=== PATIENT | male | born 1955 | race Caucasian/White ===

== ENCOUNTER 2016-10-28 07:14 | Outpatient (CLI) | payer MEDICARE ==
[~2016-10-28] VITALS: Ht 180.3 cm; Wt 76.4 kg
--- NOTE | ~2016-10-28 | HEMODYNAMI ---
PATIENT:ALISA HOPSON MEDICAL RECORD: [id number] : 55 LOCATION:[facility] ADMISSION DATE: 10/28/16 Generatedon:10/28/20169:50 Patient name: ALISA HOPSON Patient #: [id number] SSN: DO B: 1955 Date of study: 10/28/2016 Page: Of Hemodynamic Procedure Report Patient Data Patient Demographics Procedure consent was obtained First Name: ALISA Gender: Male Last Name: MARK ANTHONY : 1955 [facility] Initial: ZULY Age: 61 year(s) Patient #: [id number] Race: Unknown Additional ID: [id number] Contact details [address]: [address] [place] [address] rd State: [place] City: [place] Zip code: [address] Admission Admission Data Admission Date: 10/28/2016 Admission Time: 7:14 Procedure Procedure Types Cath Procedure Peripheral Cath Diagnostic Procedure Miscellaneous Procedure Description Procedure Date Procedure Date: 10/28/2016 Procedure Start Time: 8:24 Procedure Staff Name Function Herman Alexandre MD Performing Physician Elsy Coughlin RT Scrub Alisson Najera RN Nurse Felix Benton RT Monitor Procedure Data Cath Procedure Fluoroscopy Diagnostic fluoroscopy Total fluoroscopy Time: time: 19.6 min 19.6 min Diagnostic fluoroscopy Total fluoroscopy dose: dose: 420.04 mGy 420.04 mGy Contrast Material Contrast Material Type Amount (ml) Isovue 300 63 Entry Location Entry Primary Successful Side Size Upsize Upsize Entry Closure Succes sful Closure Location (Fr) 1 (Fr) 2 (Fr) Remarks Device Remarks Femoral Right 5 Fr 6 Fr Mynx artery Long Fire Protection Inspector 6Fr/7Fr Diagnostic catheters Device Type Used For End Catheter Placement Pesotum Sci 5Fr IMT Lower extremity Catheter arteriography Procedure Medications Medication Administration Route Dosage Versed I.V. 1 mg Fentanyl I.V. 50 mcg Versed I.V. 1 mg Fentanyl I.V. 50 mcg Versed I.V. 0.5 mg Fentanyl I.V. 25 mcg Oxygen NC 3 l/min Heparin Flush Bag added to field 3 bags (1000units/500ml NS) Lidocaine 1% added to field 20 Versed I.V. 0.5 mg Fentanyl I.V. 25 mcg Heparin Bolus I.V. 1000 units Nitroglycerin IC/IA I.A. 250 mcg Heparin Bolus I.V. 4000 units Versed I.V. 1 mg Fentanyl I.V. 50 mcg Versed I.V. 0.5 mg Fentanyl I.V. 25 mcg Hemodynamics Rest Heart Rate: 76 (bpm) Snapshots Pre Cath Intra NCS Post Cath Vital Signs Time Heart Resp SPO2 NIBP (mmHg) Rhythm Pain Sedation Rate (ipm) (%) Status Level (bpm) 8:09:12 77 16 99 165/85(126) NSR 0 (11) 10(A) , No pain 8:13:30 63 18 100 139/81(118) NSR 0 (11) 10(A) , No pain 8:17:38 72 16 100 138/86(110) NSR 0 (11) 10(A) , No pain 8:21:48 66 17 95 120/80(97) NSR 0 (11) 10(A) , No pain 8:25:53 68 14 97 121/73(96) NSR 0 (11) 10(A) , No pain 8:30:01 69 13 97 114/67(92) NSR 0 (11) 10(A) , No pain 8:34:05 66 11 97 111/68(89) NSR 0 (11) 10(A) , No pain 8:38:09 67 13 97 111/70(93) NSR 0 (11) 9(A) , No pain 8:42:10 69 13 97 116/72(95) NSR 0 (11) 9(A) , No pain 8:46:14 68 12 96 108/71(87) NSR 0 (11) 9(A) , No pain 8:50:16 70 13 96 110/68(83) NSR 0 (11) 9(A) , No pain 8:54:20 70 12 96 107/68(83) NSR 0 (11) 9(A) , No pain 8:58:21 68 13 96 115/71(86) NSR 0 (11) 9(A) , No pain 9:02:25 68 13 96 113/73(93) NSR 0 (11) 9(A) , No pain 9:06:29 68 14 96 113/72(88) NSR 0 (11) 9(A) , No pain 9:10:32 70 15 96 110/68(80) NSR 0 (11) 9(A) , No pain 9:14:36 70 14 95 105/67(88) NSR 0 (11) 9(A) , No pain 9:18:38 72 16 95 103/68(79) NSR 0 (11) 9(A) , No pain 9:22:39 69 14 96 106/65(82) NSR 0 (11) 9(A) , No pain 9:26:39 67 16 98 121/75(96) NSR 6 (11) 10(A) , Intense 9:30:45 68 12 97 129/75(103) NSR 0 (11) 9(A) , No pain 9:34:53 67 13 98 124/74(98) NSR 0 (11) 9(A) , No pain 9:38:59 68 12 98 123/75(98) NSR 0 (11) 9(A) , No pain 9:43:05 69 14 98 123/78(94) NSR 0 (11) 10(A) , No pain 9:47:10 69 14 98 122/76(94) NSR 0 (11) 10(A) , No pain Medications Time Medication Route Dose Verified Delivered Reason Notes Effectiveness by by 7:59:08 Heparin Flush added 3 bags Alisson Alisson used for Bag to King ALLYSON Najera RN procedure (1000units/500ml field NS) 7:59:17 Lidocaine 1% added 20ml Alisson Alisson for local to vial King ALLYSON Najera RN anesthetic field 7:59:53 Oxygen NC 3 Alisson Alisson Per protocol l/min King ALLYSON Najera RN 8:23:45 Versed I.V. 1 mg Alisson Alisson for sedation King ALLYSON Najera RN 8:23:55 Fentanyl I.V. 50 mcg Alisson Alisson for sedation King ALLYSON Najera RN 8:28:19 Versed I.V. 1 mg Alisson Alisson for sedation King ALLYSON Najera RN 8:28:26 Fentanyl I.V. 50 mcg Alisson Alisson for sedation King ALLYSON Najera RN 8:35:12 Versed I.V. 0.5 mg Alisson Alisson for sedation King ALLYSON Najera RN 8:35:20 Fentanyl I.V. 25 mcg Alisson Alisson for sedation King ALLYSON Najera RN 8:42:11 Versed I.V. 0.5 mg Alisson Alisson for sedation King ALLYSON Najera RN 8:42:16 Fentanyl I.V. 25 mcg Alisson Alisson for sedation King ALLYSON Najera RN 8:42:20 Heparin Bolus I.V. 4000 Alisson Alisson for units King ALLYSON Najera RN anticoagulation 9:05:32 Versed I.V. 0.5 mg Alisson Alisson for sedation King ALLYSON Najera RN 9:05:43 Fentanyl I.V. 25 mcg Alisson Alisson for sedation King ALLYSON Najera RN 9:08:43 Heparin Bolus I.V. 1000 Alisson Alisson for units King ALLYSON Najera RN anticoagulation 9:09:29 Nitroglycerin I.A. 250mcg Herman Sutton for IC/IA Bettie hernandez MD, MD 9:27:22 Versed I.V. 1 mg Alisson Alisson for sedation King ALLYSON Najera RN 9:27:29 Fentanyl I.V. 50 mcg Alisson Alisson for sedation King ALLYSON Najera RN Procedure Log Time Note 7:49:28 Felix Benton RT (R) (CV) sent for patient. Start room use. 7:49:29 Time tracking: Regular hours 7:49:35 Plan of Care:Hemodynamics will remain stable., Cardiac rhythm will remain stable., Comfort level will be maintained., Respiratory function will remain adequate., Patient/ family verbilizes understanding of procedure., Procedure tolerated without complication., Recovers from procedure without complications.. 7:49:40 Patient received from Outpatients to IR Alert and oriented. Tansferred to table in Supine position. 7:49:52 Warm blankets applied, and dom hugger turned on for patient comfort. 7:49:54 Correct patient and procedure confirmed by team. 7:49:57 Signed procedure consent form obtained from patient. 7:50:02 ECG and BP/O2 sat monitors applied to patient. 7:56:15 Full Disclosure recording started 7:56:15 7:56:20 H&P Date Dictated: 10/28/2016 H&P Addendum completed by physician on day of procedure. (MUST COMPLETE FOR ALL OUTPATIENTS). 7:56:21 Pre-procedure instructions explained to patient. 7:56:22 Pre-op teaching completed and patient verbalized understanding. 7:56:23 Family in waiting room. 7:56:28 Patient NPO since Midnight. 7:56:33 Is the patient allergic to Iodine/contrast media? No. 7:56:34 Is patient on blood thinner?No 7:56:38 7:56:50 Patient diabetic? No. 7:56:52 ----Pre-sedation anethsthesia assessment.---- 7:56:54 Previous problem with sedation/anesthesia? No ? 7:56:55 Snore? Yes 7:56:56 Sleep apnea? No 7:56:58 Deviated septum? No 7:57:15 Opens mouth fully? Yes 7:57:16 Opens mouth fully? Yes 7:57:18 Sticks out tongue? No 7:57:21 Airway obstruction? No ? 7:57:23 Dentures? No ? 7:57:24 7:57:27 Pre procedure: left dorsailis pedis pulse 2+ Normal; easily identifiable; not easily obliterated 7:57:31 Pre procedure: right dorsailis pedis pulse Doppler 7:57:35 Pre procedure: right posterior tibial pulse Doppler 7:57:39 Pre procedure: left posterior tibial pulse Doppler 7:57:47 Patient pain scale 0/10 no pain. 7:57:54 IV patent on arrival in left hand with 0.9% NaCl at [facility]. 7:57:55 Sharps counted by scrub and verified by R.N. 7:57:56 Alarms reviewed by R. N. 7:58:01 Bilateral groins area was prepped with chlora-prep and draped in sterile fashion 7:58:14 Use device set IR Diagnostic 7:58:15 Bag Decanter opened to sterile field. 7:58:16 Sterile Angiographic Pack opened to sterile field. 7:58:17 Acist Manifold opened to sterile field. 7:58:19 Acist Hand Control opened to sterile field. 7:58:19 Acist Syringe opened to sterile field. 7:59:08 Heparin Flush Bag (1000units/500ml NS) 3 bags added to field was given by Alisson Najera RN; used for procedure; 7:59:17 Lidocaine 1% 20ml vial added to field was given by Alisson Najera RN; for local anesthetic; 7:59:53 Oxygen 3 l/min NC was given by Alisson Najera RN; Per protocol; 8:07:59 Vital chart was started 8:10:50 Baseline sample Acquired. 8:10:54 Rhythm: sinus rhythm 8:20:47 Physician arrived 8:20:48 --------ALL STOP TIME OUT------ 8:20:51 Final Timeout: patient, procedure, and site verified with staff and physician. All members of the team are in agreement. 8:20:54 Bilateral groins site verified by team. 8:20:57 Physical assessment completed. ASA score P 2 - A patient with mild systemic disease as per Herman Alexandre MD. 8:21:01 Sedation plan: IV Moderate Sedation Versed, Fentanyl 8:23:45 Versed 1 mg I.V. was given by Alisson Najera RN; for sedation; 8:23:55 Fentanyl 50 mcg I.V. was given by Alisson Najera RN; for sedation; 8:24:34 Procedure started. 8:24:51 Local anesthetic to left femerol artery with Lidocaine 1% by Herman Alexandre MD.INITIAL ACCESS ONLY 8:25:08 A 5 Fr sheath was inserted into the Right Femoral artery 8:25:13 St Gabriel 5FR Sheath opened to sterile field. 8:25:13 Cook BENTSON 145cm guide wire opened to sterile field. 8:25:14 Micropuncture VSI 4FR kit opened to sterile field. 8:28:19 Versed 1 mg I.V. was given by Alisson Najera RN; for sedation; 8:28:26 Fentanyl 50 mcg I.V. was given by Alisson Najera RN; for sedation; 8:33:46 A Pesotum Sci 5Fr IMT Catheter was advanced over the wire and used for Lower extremity arteriography. 8:35:12 Versed 0.5 mg I.V. was given by Alisson Najera RN; for sedation; 8:35:15 [address]ADRUNNER 260 .035 glide wire opened to sterile field. 8:35:20 Fentanyl 25 mcg I.V. was given by Alisson Najera RN; for sedation; 8:38:44 Terumo 5FR COBRA 100CM glide catheter opened to sterile field. 8:41:53 Terumo 6Fr [place] Destination Sheath opened to sterile field. 8:42:06 Sheath upsized to a 6 Fr Long. 8:42:11 Versed 0.5 mg I.V. was given by Alisson Najera RN; for sedation; 8:42:16 Fentanyl 25 mcg I.V. was given by Alisson Najera RN; for sedation; 8:42:20 Heparin Bolus 4000 units I.V. was given by Alisson Najera RN; for anticoagulation; 8:43:07 Cook KENDALL 260 guide wire opened to sterile field. 8:51:17 Encore Inflation Device opened to sterile field. 9:03:19 Terumo ANGLE 260L glide wire opened to sterile field. 9:05:32 Versed 0.5 mg I.V. was given by Alisson Najera RN; for sedation; 9:05:43 Fentanyl 25 mcg I.V. was given by Alisson Najera RN; for sedation; 9:05:43 Pesotum Sci Choice PT Floppy J 300cm 0.014 guide wi opened to sterile field. 9:08:43 Heparin Bolus 1000 units I.V. was given by Alisson Najera RN; for anticoagulation; 9:09:29 Nitroglycerin IC/IA 250mcg I.A. was given by Herman Alexandre MD; for vasodilation; 9:09:33 Turbohawk 1 Large Atherectomy catheter opened to sterile field. 9:23:09 Inflation number: 1 A IN.PACT Admiral 6 x 150 balloon was prepped and advanced across the Mid Superficial Femoral, Right, then inflated to 0 TARAH for 0:00 (min:sec). 9:27:22 Versed 1 mg I.V. was given by Alisson Najera RN; for sedation; 9:27:29 Fentanyl 50 mcg I.V. was given by Alisson Najera RN; for sedation; 9:36:24 St Gabriel 6Fr sheath opened to sterile field. 9:37:25 MYNX CRABBER 6FR/7FR opened to sterile field. 9:37:44 Sheath removed intact; hemostasis achieved with Mynx Fire Protection Inspector 6Fr/7Fr to the Right Femoral artery. 9:37:47 Procedure ended.(Physican Out) 9:38:08 Fluoroscopy time 19.60 minutes. 9:38:28 Fluoroscopy dose: 420.04 mGy 9:38:28 Flurop Dose total: 420.04 9:40:56 Contrast amount:Isovue 300 63ml. 9:40:59 Sharps counted by scrub and verified by R.N. 9:41:02 Insertion/operative site no bleeding no hematoma. 9:41:12 Post-op/insertion site Left Femoral artery dressed using a 4 x 4 and Tegaderm. 9:41:17 Post left femerol artery:stable 9:41:18 Post Procedure Pulses reassessed and unchanged 9:41:23 Post-procedure physical assessment completed. ASA score P 2 - A patient with mild systemic disease as per Herman Alexandre MD. 9:41:25 Post procedure rhythm: unchanged. 9:49:22 Post procedure instruction explained to patient.Patient verbalizes understanding. 9:49:23 Procedure and supply charges have been captured, reviewed, submitted and are correct. 9:49:26 Report given to Outpatients. 9:49:30 Patient transfered to Outpatients with Bed. 9:50:51 Vital chart was stopped Intervention Summary Intervention Notes Time ActionType Lesion and Equipment Action# Pressure Duration Attributes Used 9:23:09 Inflate Mid IN.PACT 1 0 00:00 balloon Superficial Admiral 6 Femoral, x 150 Right balloon Device Usage Item Name Manufacture Quantity Catalog Number Hospital Part Current [facility] Lot# / Charge Number Stock Stock Serial# Code Bag Decanter Microtek 1 [facility] [id number] 74133 837545 5 [employer] Inc. Sterile Cardinal 1 [id number] 219298 027484 5 Angiographic Health Pack Acist Acist 1 07471 679295 772277 149944 5 Manifold Medical Systems Inc Acist Hand Acist 1 33581 748513 426971 091942 5 Control Medical Systems Inc Acist Syringe Acist 1 [id number] 680009 875382 017055 [address] [facility] 5FR [facility] 1 183071 507515 199546 5 [id number] Sheath Cook [facility] 1 P37756 679995 144481 5 [id number] 145cm guide wire Micropuncture VSI VASCULAR 1 7266V 685781 216832 5 VSI 4FR kit SOLUTIONS Pesotum Sci Pesotum 1 [id number] 324724 491698 42301 5 5Fr IMT Scientific Catheter [facility] 1 L81832 206893 571068 5 [id number] ROADRUNNER 260 .035 glide wire Terumo 5FR Terumo 1 CG503 780507 895362 5 COBRA 100CM glide catheter Terumo 6Fr Terumo 1 RSR01 847342 18770 589219 5 Gree[place] Destination Sheath Executive Intermediary [facility] 1 Q15094 711734 108213 5 9290886 260 guide wire Encore Pesotum 1 [id number] 602368 634993 204478 5 Inflation Scientific Device Terumo ANGLE Terumo 1 [id number] 680567 875359 5 260L glide wire Pesotum Sci Pesotum 1 [id number] 561287 979142 488170 5 Choice PT Scientific Floppy J 300cm 0.014 guide wi Turbohawk 1 Ev3 1 H1-M 519184 785341 965339 5 [id number] Large Atherectomy catheter IN.PACT Medtronic 1 [id number] 901333 9467079 129002 5 Admiral [address] [facility] Gabriel 1 988776 619511 145818 5 [id number] sheath MYNX CRABBER Access 1 [id number] 355035 899158 5 [id number] 6FR/7FR Closure Signature Audit [place] Stage Time Signature Unsigned Intra-Procedure 10/28/2016 Felix 9:50:37 AM [place]ield RT (R) (CV) Signatures Monitor : Felix Signature : [place] RT Date : Time : [address] [place] [address]
[~2016-10-28 07:14] MED LIST: ASPIRIN325 MG; OMEPRAZOLE20 M1 PO; PLAVIX75 MG PO
[2016-10-28 07:27] VITALS: BP 127/76; Ht 180.3 cm; Wt 76.4 kg
[2016-10-28 07:34] LABS: BASOPHILS 0.3 % (0.0-2.0); EOSINOPHILS 4.3 % (0-7); HEMATOCRIT 44.8 % (42.0-54.0); HEMOGLOBIN 14.3 g/dL (13.5-17.5); IMMATURE GRANULOCYTES 0.3 % (0-5); LYMPHOCYTES 24.6 % (15-50); MCH 28.6 pg (26.0-34.0); MCHC 31.9 g/dL (31.0-37.0); MCV 89.6 fL (80.0-100.0); MONOCYTES 6.9 % (2-11); NEUTROPHILS 63.6 % (40-80); RDW 13.7 % (11.5-14.5); WBC 11.5 10x3/uL (4.8-10.8)
[2016-10-28 07:35] LABS: APTT 32.5 SECONDS (22.8-39.4); PROTIME 13.1 SECONDS (11.6-15.0)
[2016-10-28 07:36] LABS: PLATELET COUNT 234 10x3/uL (130-400)
[2016-10-28 07:44] LABS: ANION GAP 13.1 mmol/L (8-16); CALCIUM 9.2 mg/dL (8.5-10.1); CARBON DIOXIDE 28.7 mmol/L (21.0-32.0); CREATININE - SERUM 1.4 mg/dL (0.6-1.3); POTASSIUM - SERUM 4.8 mmol/L (3.5-5.1)
--- NOTE | 2016-10-28 10:05 | NUR ---
RECEIVED FROM IR POST RIGHT LOWER EXTREMETY ARTERIOGRAM. HOB FLAT. LEFT GROIN DRESSING C/D/I, NO SIGNS OF HEMATOMA NOTED. PEDAL PULSE PALPABLE ON LEFT, AUDIBLE WITH DOPPLER ON RIGHT. C/O RIGHT MID THIGH PAIN, NORCO GIVEN PRESCRIBED. PLAVIX 150MG PO GIVEN. INSTRUCTED TO START ON HIS HOME DOSE OF PLAVIX TOMORROW, VOICED UNDERSTANDING. SISTER IN ROOM AND STATES "ILL MAKE SURE HE DOES." FINGER FOOD TRAY GIVEN. SEE POST PROCEDURE VITAL SIGN SHEET FOR VITAL SIGNS.
--- NOTE | 2016-10-28 13:50 | NUR ---
NO BLEEDING OR HEMATOMA AT LEFT GROIN SITE. DP PULSE PALPABLE ON LEFT AND CAN HEAR WITH DOPPLER ON RIGHT. STATES PAIN LEVEL IS A "3". IV REMOVED WITH TIP INTACT. DISCHAGE INSTRUCTIONS GIVEN, VOICED UNDERSTANDING.
--- NOTE | 2016-10-28 14:15 | NUR ---
DISCHARGED HOME VIA .
== END 2016-10-28 14:15 | disposition home or self-care (01) ==
LOC: D.OPS 07:14 → D.RAD 08:00 → D.OPS 08:00
PROVIDERS: Radiology Diagnostic Radiology
DX: I70.211 Atherosclerosis of native arteries of extremities with intermittent claudication, right leg (principal); F17.200 Nicotine dependence, unspecified, uncomplicated

== ENCOUNTER 2016-11-25 13:49 | Emergency (ER) | payer MEDICARE ==
[2016-10-28 07:27] VITALS: BMI 23.4
[2016-11-25 15:52] LABS: BASOPHILS 0.3 % (0.0-2.0); EOSINOPHILS 4.4 % (0-7); HEMATOCRIT 48.8 % (42.0-54.0); HEMOGLOBIN 16.1 g/dL (13.5-17.5); IMMATURE GRANULOCYTES 0.5 % (0-5); LYMPHOCYTES 26.9 % (15-50); MCH 29.4 pg (26.0-34.0); MCV 89.1 fL (80.0-100.0); MEAN PLATELET VOLUME 11.4 fL (7.4-10.4); MONOCYTES 4.4 % (2-11); NEUTROPHILS 63.5 % (40-80); RBC 5.48 10x6/uL (4.20-6.10); RDW 13.7 % (11.5-14.5); WBC 14.4 10x3/uL (4.8-10.8)
[2016-11-25 16:01] LABS: APTT 31.3 SECONDS (22.8-39.4); INR 0.97 (0.85-1.17); PROTIME 12.8 SECONDS (11.6-15.0)
[2016-11-25 16:04] LABS: PLATELET COUNT 171 10x3/uL (130-400)
[2016-11-25 16:09] LABS: ALBUMIN 3.8 g/dL (3.4-5.0); ANION GAP 12.2 mmol/L (8-16); BILIRUBIN - TOTAL 0.26 mg/dL (0.2-1.3); CALCIUM 8.7 mg/dL (8.5-10.1); CARBON DIOXIDE 30.3 mmol/L (21.0-32.0); CREATININE - SERUM 1.3 mg/dL (0.6-1.3); POTASSIUM - SERUM 4.5 mmol/L (3.5-5.1); PROTEIN - SERUM 7.8 g/dL (6.4-8.2)
== END 2016-11-25 17:55 | disposition home or self-care (01) ==
LOC: D.ER 13:49
PROVIDERS: Family Medicine
DX: I70.208 Unspecified atherosclerosis of native arteries of extremities, other extremity (principal); I10 Essential (primary) hypertension; F17.200 Nicotine dependence, unspecified, uncomplicated

== ENCOUNTER 2016-12-02 06:41 | Outpatient (CLI) | payer MEDICARE ==
[~2016-12-02] VITALS: Ht 180.3 cm; Wt 76.4 kg
--- NOTE | ~2016-12-02 | HEMODYNAMI ---
PATIENT:ALISA HOPSON MEDICAL RECORD: [id number] : 55 LOCATION:[facility] ADMISSION DATE: 12/02/16 Generatedon:12/02/201610:34 Patient name: ALISA HOPSON Patient #: [id number] SSN: DO B: 1955 Date of study: 12/02/2016 Page: Of Hemodynamic Procedure Report Patient Data Patient Demographics Procedure consent was obtained First Name: ALISA Gender: Male Last Name: MARK ANTHONY : 1955 [facility] Initial: ZULY Age: 61 year(s) Patient #: [id number] Race: Unknown Additional ID: [id number] Contact details [address]: [address] [place] [address] rd State: [place] City: [place] Zip code: [address] Past Medical History Allergies: No known allergies Admission Admission Data Admission Date: 12/02/2016 Admission Time: 6:41 Height (in.): 71 BSA: 1.96 (m2) Height (cm.): 180.34 BMI: 23.43 (kg/m2) Weight (lbs.): 168 Weight (kg.): 76.2 Procedure Procedure Types Cath Procedure Peripheral Cath Diagnostic Procedure Cath Peripheral Abd/Extremity Extremities Right Lower Ext Arterio Procedure Description Procedure Date Procedure Date: 12/02/2016 Procedure Start Time: 9:26 Procedure Staff Name Function Herman Alexandre MD Performing Physician Felix Benton RT Scrub Elsy Cotton RN Nurse Alisson Najera RN Nurse Dorie Anderson RT Straddle Bug Operator Dorie Anderson RT Monitor Procedure Data Cath Procedure Fluoroscopy Diagnostic fluoroscopy Total fluoroscopy Time: 9.7 time: 9.7 min min Diagnostic fluoroscopy Total fluoroscopy dose: dose: 210.62 mGy 210.62 mGy Contrast Material Contrast Material Type Amount (ml) Isovue 300 45 Entry Location Entry Primary Successful Side Size Upsize Upsize Entry Closure Succes sful Closure Location (Fr) 1 (Fr) 2 (Fr) Remarks Device Remarks Femoral Left 5 Fr artery Femoral Left Mynx artery Stonemason Helper 6Fr/7Fr Diagnostic catheters Device Type Used For End Catheter Placement Diagnostic 5Fr IMT Catheter Procedure Medications Medication Administration Route Dosage Oxygen NC 3 l/min Heparin Flush Bag added to field 3 bags (1000units/500ml NS) Lidocaine 1% added to field 20 Benadryl I.V. 50 mg Versed I.V. 1 mg Fentanyl I.V. 50 mcg Versed I.V. 0.5 mg Fentanyl I.V. 25 mcg Heparin Bolus I.V. 4000 units Versed I.V. 0.5 mg Fentanyl I.V. 25 mcg Nitroglycerin IC/IA I.C. 200 mcg Hemodynamics Rest BSA: 1.96 (m2) O2 Consumption: Estimated: 237.37 (ml/min) O2 Consumption indexed : Estimated:121.11 (ml/min/m) Heart Rate: 80 (bpm) Snapshots Pre Cath Intra NCS Post Cath Vital Signs Time Heart Resp SPO2 NIBP (mmHg) Rhythm Pain Sedation Rate (ipm) (%) Status Level (bpm) 8:50:20 81 15 97 133/79(106) NSR 0 (11) 10(A) , No pain 8:54:34 72 16 100 133/79(112) NSR 0 (11) 10(A) , No pain 8:58:48 65 18 100 132/76(107) NSR 0 (11) 10(A) , No pain 9:02:56 69 17 100 137/87(113) NSR 0 (11) 10(A) , No pain 9:07:08 76 17 100 133/82(106) NSR 0 (11) 10(A) , No pain 9:11:22 68 16 99 120/72(104) NSR 0 (11) 10(A) , No pain 9:15:29 66 17 99 117/72(96) NSR 0 (11) 10(A) , No pain 9:19:37 72 18 99 112/73(89) NSR 0 (11) 10(A) , No pain 9:23:41 72 19 99 116/75(94) NSR 0 (11) 10(A) , No pain 9:27:47 67 17 100 122/77(100) NSR 0 (11) 10(A) , No pain 9:31:57 74 19 100 122/75(98) NSR 0 (11) 9(A) , No pain 9:36:07 73 17 99 116/73(95) NSR 0 (11) 9(A) , No pain 9:40:15 70 17 99 117/72(98) NSR 0 (11) 9(A) , No pain 9:44:22 70 16 99 115/70(91) NSR 0 (11) 9(A) , No pain 9:48:30 72 18 99 111/69(93) NSR 0 (11) 9(A) , No pain 9:52:36 70 18 99 127/72(102) NSR 0 (11) 9(A) , No pain 9:56:46 71 16 99 114/74(95) NSR 0 (11) 9(A) , No pain 10:00:50 72 17 99 117/76(93) NSR 0 (11) 9(A) , No pain 10:04:58 68 17 99 125/71(100) NSR 0 (11) 9(A) , No pain 10:09:07 71 18 98 117/72(92) NSR 0 (11) 9(A) , No pain 10:13:15 69 18 99 114/74(86) NSR 0 (11) 9(A) , No pain 10:17:21 70 18 99 111/72(84) NSR 0 (11) 9(A) , No pain 10:21:27 71 17 100 115/72(100) NSR 0 (11) 9(A) , No pain 10:25:31 75 16 99 124/78(98) NSR 0 (11) 9(A) , No pain 10:29:36 76 14 100 126/82(106) NSR 0 (11) 9(A) , No pain 10:33:58 No Cuff NSR 0 (11) 9(A) , No pain Medications Time Medication Route Dose Verified Delivered Reason Notes E ffectiveness by by 8:59:00 Oxygen NC 3 Elsy Elsy used for l/min Lula Lula fiction writer RN 8:59:13 Heparin Flush added 3 Elsy Elsy used for Bag to bags Lula Lula procedure (1000units/500ml field RN RN NS) 8:59:21 Lidocaine 1% added 20ml Elsy Elsy used for to vial Lula Lula procedure field RN RN 9:10:42 Benadryl I.V. 50 mg [facility] 9:26:36 Versed I.V. 1 mg Elsy Elsy for sedation Lula Lula RN RN 9:26:43 Fentanyl I.V. 50 Elsy Elsy for sedation mcg Lula Lula RN RN 9:31:32 Versed I.V. 0.5 Elsy Elsy for sedation mg Lula Lula RN RN 9:31:37 Fentanyl I.V. 25 Elsy Elsy for sedation mcg Lula Lula RN RN 9:41:52 Heparin Bolus I.V. 4000 Elsy Elsy Per units [facility] physician RN RN 9:50:16 Versed I.V. 0.5 Elsy Elsy for sedation mg Lula Lula RN RN 9:50:19 Fentanyl I.V. 25 Elsy Elsy for sedation mcg [place] Lula RN RN 10:07:21 Nitroglycerin I.C. 200 Herman Herman for IC/IA mcg Bettie hernandez MD, MD Procedure Log Time Note 8:10:19 Patient Height : 71 inches 8:10:22 Patient Weight : 168 lbs 8:39:29 Time tracking: Regular hours 8:40:26 H&P Date Dictated: 12/02/2016 Within 30 days and on chart.. 8:40:28 Pre-procedure instructions explained to patient. 8:40:29 Pre-op teaching completed and patient verbalized understanding. 8:40:31 Family in waiting room. 8:40:33 Patient NPO since Midnight. 8:40:45 Patient allergic to No known allergies 8:40:49 Is the patient allergic to Iodine/contrast media? No. 8:40:56 Is patient on blood thinner?No 8:40:59 Patient diabetic? No. 8:42:46 - 8:42:49 ----Pre-sedation anethsthesia assessment.---- 8:42:54 Previous problem with sedation/anesthesia? No ? 8:42:56 Snore? No 8:42:58 Sleep apnea? No 8:43:00 Deviated septum? No 8:43:01 Opens mouth fully? Yes 8:43:04 Sticks out tongue? Yes 8:43:07 Airway obstruction? No ? 8:43:11 Dentures? No ? 8:43:20 IV patent on arrival in left forearm with 0.9% NaCl at [facility]. 8:44:15 Pre procedure: right dorsailis pedis pulse Doppler 8:44:20 Pre procedure: right posterior tibial pulse Doppler 8:44:24 Pre procedure: left dorsailis pedis pulse Doppler 8:44:29 Pre procedure: left posterior tibial pulse Doppler 8:44:32 - 8:44:37 Use device set IR Diagnostic 8:44:40 Sterile Angiographic Pack opened to sterile field. 8:44:41 Bag Decanter opened to sterile field. 8:44:42 Acist Manifold opened to sterile field. 8:44:43 Acist Hand Control opened to sterile field. 8:44:44 Acist Syringe opened to sterile field. 8:45:47 TUBING, CONTRAST INJCTN HI PRES opened to sterile field. 8:45:50 A Diagnostic 5Fr IMT Catheter was advanced over the wire and used for . 8:45:51 [facility] Gabriel 5FR Sheath opened to sterile field. 8:45:52 Micropuncture VSI 4FR kit opened to sterile field. 8:45:53 Augusto LEESON 145cm guide wire opened to sterile field. 8:45:54 Augusto [facility] 260 .035 glide wire opened to sterile field. 8:45:55 Augusto KENDALL 260 guide wire opened to sterile field. 8:46:15 Terumo 6Fr [place] Destination Sheath opened to sterile field. 8:47:25 - 8:48:52 Correct patient and procedure confirmed by team. 8:48:55 Signed procedure consent form obtained from patient. 8:48:59 ECG and BP/O2 sat monitors applied to patient. 8:49:02 Vital chart was started 8:49:17 Baseline sample Acquired. 8:49:21 Full Disclosure recording started 8:49:23 - 8:59:00 Oxygen 3 l/min NC was given by Elsy Cotton RN; used for procedure; 8:59:13 Heparin Flush Bag (1000units/500ml NS) 3 bags added to field was given by Elsy Cotton RN; used for procedure; 8:59:21 Lidocaine 1% 20ml vial added to field was given by Elsy Cotton RN; used for procedure; 9:06:48 Left groin area was prepped with chlora-prep and draped in sterile fashion 9:06:50 Alarms reviewed by Tracee Kelley 9:06:51 Sharps counted by scrub and verified by Natalia 9:06:51 - 9:09:05 Physician arrived 9:10:42 Benadryl 50 mg I.V. was given by Elsy Cotton RN; Per physician; 9:12:25 --------ALL STOP TIME OUT------ 9:12:26 Final Timeout: patient, procedure, and site verified with staff and physician. All members of the team are in agreement. 9:25:56 Physical assessment completed. ASA score P 2 - A patient with mild systemic disease as per Herman Alexandre MD. 9:26:01 Sedation plan: IV Moderate Sedation Versed, Fentanyl 9:26:07 Procedure started. 9:26:14 Local anesthetic to left femerol artery with Lidocaine 1% by Herman Alexandre MD.INITIAL ACCESS ONLY 9:26:17 Arterial access obtained using ultrasound guidance. 9:26:36 Versed 1 mg I.V. was given by Elsy Cotton RN; for sedation; 9::39 A 5 Fr sheath was inserted into the Left Femoral artery 9::43 Fentanyl 50 mcg I.V. was given by Elsy Cotton RN; for sedation; 9:31:32 Versed 0.5 mg I.V. was given by Elsy Cotton RN; for sedation; 9:31:37 Fentanyl 25 mcg I.V. was given by Elsy Cotton RN; for sedation; 9:40:15 CXI SUPPORT .035 135 CM STR catheter opened to sterile field. 9:41:52 Heparin Bolus 4000 units I.V. was given by Elsy Cotton RN; Per physician; 9:50:16 Versed 0.5 mg I.V. was given by Elsy Cotton RN; for sedation; 9:50:19 Fentanyl 25 mcg I.V. was given by Elsy Cotton RN; for sedation; 9:50:54 BasixTOUCH Inflation Syringe opened to sterile field. 9:52:03 Inflation number: 1 A Cordis Powerflex Pro 5.0 X 100 X 135 balloon was prepped and advanced across the Undefined1, then inflated to 15 TARAH for 0:22 (min:sec). 9:56:25 implanted a zilver ptx stent in the rt sfa. [id number] lot#[id number] 9:57:19 Zilver PTX 6 x 80 stent was deployed across Undefined2 . 10:07:21 Nitroglycerin IC/IA 200 mcg I.C. was given by Herman Alexandre MD; for vasodilation; 10:19:35 St Gabriel 6Fr sheath opened to sterile field. 10:20:04 MYNX BRASS ROLLER 6FR/7FR opened to sterile field. 10:20:19 A sheath was inserted into the Left Femoral artery 10:20:19 Sheath removed intact; hemostasis achieved with Mynx Stonemason Helper 6Fr/7Fr to th e Left Femoral artery. 10:23:07 Procedure ended.(Physican Out) 10:25:09 Fluoroscopy time 09.70 minutes. 10:25:20 Fluoroscopy dose: 210.62 mGy 10:25:20 Flurop Dose total: 210.62 10:25:24 Contrast amount:Isovue 300 45ml. 10:25:26 Sharps counted by scrub and verified by R.N. 10:25:28 Procedure and supply charges have been captured, reviewed, submitted an d are correct. 10:33:56 End room use (Document Last) 10:34:12 Vital chart was stopped Intervention Summary Intervention Notes Time ActionType Lesion and Equipment Action# Pressure Duration Attributes Used 9:52:03 Inflate Undefined1 Cordis 1 15 00:22 balloon Powerflex Pro 5.0 X 100 X 135 balloon 9:57:19 Deploy self Undefined2 Zilver 1 expanding PTX 6 x stent 80 stent Device Usage Item Name Manufacture Quantity Catalog Number Hospital Part Current Min imal Lot# / Charge Number Stock Stock Serial# Code Sterile Cardinal 1 [id number] 5 Angiographic Health Pack Bag Decanter Microtek 1 [id number] 727121 84808 249202 5 Medical Inc. Acist Acist 1 92321 045291 809195 537502 5 Manifold Medical Systems Inc Acist Hand Acist 1 47357 952122 401289 198123 5 Control Medical Systems Inc Acist Syringe Acist 1 30905 347127 914139 199967 20 Medical Systems Nagi TUBING, Merit 1 [id number] 886262 920430 107294 5 CONTRAST Medical INJCTN HI PRES Diagnostic [place] 1 [id number] 312460 427348 04908 5 5Fr IMT [address] Catheter [facility] 5FR [facility] 1 837228 448476 789847 5 [id number] Sheath Micropuncture VSI VASCULAR 1 [id number] 161876 749741 5 VSI 4FR kit SOLUTIONS [facility] 1 [id number] 612871 692361 5 [id number] 145cm guide wire [facility] 1 [id number] 152836 967748 5 [id number] ROADRUNNER 260 .035 glide wire [facility] 1 [id number] 764550 715039 5 [id number] 260 guide wire Terumo 6Fr Terumo 1 RSR01 158761 14625 709533 5 [place] Destination Sheath BasixTOUCH Merit 1 [id number] 991480 407593 671461 5 Inflation Medical Syringe Cordis Cardinal 1 [id number] 571230 340983 652597 5 Powerflex Pro Health 5.0 X 100 X 135 balloon Zilver PTX 6 [facility] 1 [id number] 250227 661845 835360 5 [id number] x 80 stent CXI SUPPORT [facility] 1 [id number] 495082 592900 5 [id number] .035 [address] [facility] [address] [facility] 1 395166 082015 562681 5 [id number] sheath MYNX BRASS ROLLER Access 1 [id number] 176746 856211 5 [id number] 6FR/7FR Closure Signature Audit [place] Stage Time Signature Unsigned Intra-Procedure 12/02/2016 Dorie Anderson 10:34:09 AM RT(R) Signatures Monitor : Dorie Anderson RT Signature : Date : Time : [place] [id number] [place] [address]
[2016-12-02 07:17] VITALS: BP 142/86; Ht 180.3 cm; Wt 76.4 kg
[2016-12-02 07:44] LABS: BASOPHILS 0.1 % (0.0-2.0); EOSINOPHILS 4.8 % (0-7); HEMOGLOBIN 16.1 g/dL (13.5-17.5); IMMATURE GRANULOCYTES 0.4 % (0-5); LYMPHOCYTES 21.4 % (15-50); MCH 29.1 pg (26.0-34.0); MCHC 32.9 g/dL (31.0-37.0); MCV 88.6 fL (80.0-100.0); MEAN PLATELET VOLUME 11.6 fL (7.4-10.4); MONOCYTES 6.9 % (2-11); NEUTROPHILS 66.4 % (40-80); PLATELET COUNT 160 10x3/uL (130-400); RBC 5.53 10x6/uL (4.20-6.10); RDW 13.9 % (11.5-14.5); WBC 13.7 10x3/uL (4.8-10.8)
[2016-12-02 07:56] LABS: ANION GAP 10.8 mmol/L (8-16); CALCIUM 9.6 mg/dL (8.5-10.1); CARBON DIOXIDE 30.6 mmol/L (21.0-32.0); CREATININE - SERUM 1.4 mg/dL (0.6-1.3); POTASSIUM - SERUM 4.4 mmol/L (3.5-5.1)
[2016-12-02 08:04] LABS: APTT 32.1 SECONDS (22.8-39.4); PROTIME 13.1 SECONDS (11.6-15.0)
[2016-12-02 13:09] LABS: PLT FUNCT.(P2Y12) PLAVIX 205 PRU (194-418)
--- NOTE | 2016-12-02 14:50 | NUR ---
VS TAKEN AND PLACE ON POST OP SHEET
== END 2016-12-02 17:30 | disposition home or self-care (01) ==
LOC: D.OPS 06:41 → D.SP 09:00 → D.OPS 09:00
PROVIDERS: Radiology Diagnostic Radiology
DX: I70.221 Atherosclerosis of native arteries of extremities with rest pain, right leg (principal); I75.021 Atheroembolism of right lower extremity

== ENCOUNTER → 2016-12-08 12:20 | Outpatient (CLI) | payer MEDICARE ==
[2016-12-02 07:17] VITALS: BMI 23.4
[2016-12-08 13:23] LABS: PLT FUNCT.(P2Y12) PLAVIX 189 PRU (194-418)
== END | disposition home or self-care (01) ==
LOC: D.LAB 08:00
PROVIDERS: Radiology Diagnostic Radiology
DX: I70.211 Atherosclerosis of native arteries of extremities with intermittent claudication, right leg (principal); I70.221 Atherosclerosis of native arteries of extremities with rest pain, right leg

== ENCOUNTER 2017-04-03 11:54 | Outpatient (CLI) | payer MEDICARE ==
[~2017-04-03] VITALS: Ht 180.3 cm; Wt 78.6 kg
--- NOTE | ~2017-04-03 | OP ---
PATIENT NAME: ALISA HOPSON MEDICAL RECORD: [id number] :55 LOCATION:D. D.2118 ADMISSION DATE:04/03/17 SURGEON: DARIANA PATTERSON M.D. DATE OF OPERATION: 04/03/2017 REFERRING PHYSICIAN: None. PROCEDURES PERFORMED: 1. Selective coronary angiography. 2. Left heart catheterization with ventriculogram. 3. Bypass angiography. 4. Left internal mammary artery injection. 5. PTCA and stent placed in the circumflex artery. INDICATION: A 62-year-old gentleman presents with symptoms of accelerating angina. EQUIPMENT USED: Diagnostic 5-[place] JL4, Lopez right, AR modified catheter, mammary catheter, pigtail catheter. INTERVENTION: A 6-[place] XB LAD guide, BMW guidewire, 2.5 x 26 mm Integrity stent. TECHNIQUE: A 5-[place] sheath was inserted in retrograde fashion in the right common femoral artery. Next, selective coronary angiography was performed in standard views using 5-[place] JL4 and Lopez right. Left heart catheterization was performed using pigtail catheter. The internal mammary was selected with internal mammary catheter. Bypass angiography was performed using the AR modified catheter. CORONARY ANATOMY: 1. Left main: Left main trunk is moderate in caliber. It gives rise to the LAD and circumflex. There is no obstruction. 2. LAD: This vessel is 100% occluded at the origin. 3. Circumflex: This vessel is large in caliber and dominant. The first lateral branch has a hazy ulcerated 90% stenosis followed by an 80% stenosis. The continuation of the circumflex is dominant. It has mild irregularities throughout its course. 4. Right coronary: This vessel is moderate in caliber and nondominant. It has mild irregularities throughout its course. 5. Left internal mammary artery to LAD: This graft is widely patent throughout its course. Beyond the anastomosis, there appears to be a smooth 60% stenosis in the distal LAD, but this vessel appears to be about 2 mm in diameter or less. 6. Saphenous vein graft to circumflex. This vessel is 100% occluded at the origin. 7. Left ventricle: Left ventricle is normal in size and function. No wall motion abnormalities are noted. Estimated ejection fraction is 60%. DESCRIPTION OF INTERVENTION: A 6-[place] sheath was inserted in retrograde fashion in the right common femoral artery. Next, 100 units per kilogram of heparin was infused. A 6-[place] XB LAD guide was advanced and engaged in the left main coronary artery. Next, a BMW guidewire was placed in the distal circumflex. A 2.5 x 26 mm Integrity stent was placed in the first lateral branch of the circumflex across the ulcerated lesion. The stent was then deployed at 12 atmospheres. Injection shows stent to be widely patent with 0% OPERATIVE REPORT [id number] ALISA HOPSON residual stenosis. There is marked improvement in distal flow. At this point, the wire and guide were removed. IMPRESSION: Successful percutaneous transluminal coronary angioplasty and stenting of the circumflex with 0% residual stenosis. TRANSINT:[id number] Voice Confirmation ID: [id number] DOCUMENT ID: [id number] DARIANA PATTERSON M.D. CC: [id number] DICTATION DATE: 04/03/17 1645 STILL WORKER HELPER: 04/03/17 7955 ADM IN [facility] [address] [id number]
--- NOTE | ~2017-04-03 | HEMODYNAMI ---
PATIENT:ALISA HOPSON MEDICAL RECORD: [id number] : 55 LOCATION[id number] ADMISSION DATE: 04/03/17 Generatedon:04/03/201716:43 Patient name: ALISA HOPSON Patient #: [id number] SSN: DO B: 1955 Date of study: 04/03/2017 Page: Of Hemodynamic Procedure Report Patient Data Patient Demographics Procedure consent was obtained First Name: ALISA Gender: Male Last Name: MARK ANTHONY : 1955 [facility] Initial: ZULY Age: 62 year(s) Patient #: [id number] Race: Unknown Additional ID: [id number] Contact details Address: [address] [place] [address] State: [place] City: [place] Zip code: [address] Past Medical History Allergies: No known allergies Admission Admission Data Admission Date: 04/03/2017 Admission Time: 13:22 Room #: D.2118 Procedure Procedure Types Cath Procedure Diagnostic Procedure LHC LHC w/Coronaries PCI Procedure Coronary Stent Initial Miscellaneous Procedures Moderate Sedation up to 30 minutes Procedure Description Procedure Date Procedure Date: 04/03/2017 Procedure Start Time: 16:13 Procedure End Time: 16:42 Procedure Staff Name Function Dieter Willis MD Performing Physician Shasta Minaya RN Nurse Darius Gaxiola RT Monitor Petr Sauceda RT Scrub Rachel Long RT Monitor Procedure Data Cath Procedure Fluoroscopy Diagnostic fluoroscopy Total fluoroscopy Time: 4.6 time: 4.6 min min Diagnostic fluoroscopy Total fluoroscopy dose: 679 dose: 679 mGy mGy Contrast Material Contrast Material Type Amount (ml) Isovue 300 131 Entry Location Entry Primary Successful Side Size Upsize Upsize Entry Closure Succes sful Closure Location (Fr) 1 (Fr) 2 (Fr) Remarks Device Remarks Femoral Right 6 Fr Exoseal artery Short Estimated blood loss: 10 ml Diagnostic catheters Device Type Used For End Catheter Placement Cordis 5Fr JL 4.0 Left Coronary Catheter (MP) Angiography Diagnostic Infinity 5Fr Right Coronary AR MOD Catheter Angiography Diagnostic Infinity 5Fr SVG Angiography AR MOD Catheter Diagnostic Infinity 5Fr Internal mammary IM catheter arteriography Cordis 5Fr Pigtail LV Angiography Catheter (MP) Procedure Complications No complications Procedure Medications Medication Administration Route Dosage Oxygen NC 2 l/min Lidocaine 2% added to field 20 Heparin Flush Bag added to field 2 bags (1000units/500ml NS) 0.9% NaCl I.V. 100 ml/hr Versed I.V. 1 mg Fentanyl I.V. 50 mcg Versed I.V. 1 mg Fentanyl I.V. 50 mcg Heparin Bolus I.V. 8000 units Versed I.V. 1 mg Fentanyl I.V. 50 mcg Versed I.V. 1 mg Fentanyl I.V. 50 mcg Hemodynamics Rest Heart Rate: 72 (bpm) Pressure Samples Time Site Value (mmHg) Purpose Heart Use Rate(bpm) 16:24 LV 102/-15,3 EDP 69 16:25 AO 107/50(72) Pullback 79 16:25 LV 109/-13,6 Pullback 79 Gradients Valve Time Site 1 Site 2 Mean SEP/DFP Peak To Heart Use (mmHg) (sec/min) Peak Rate (mmHg) (bpm) Aortic 16:25 LV AO 11 20 2 79 109/-13,6 107/50(72) Calculations Valve P-P Mean Valve Index Valve Source Name Gradient Area Flow (cm2) Aortic 2 11 2 11 Snapshots Pre Cath Intra NCS Post Cath Vital Signs Time Heart Resp SPO2 NIBP (mmHg) Rhythm Pain Sedation Rate (ipm) (%) Status Level (bpm) 15:36:29 70 22 97 143/82(110) NSR 0 (11) 10(A) , No pain 15:40:43 75 30 98 141/83(109) NSR 0 (11) 10(A) , No pain 15:44:57 77 20 92 129/80(97) NSR 0 (11) 10(A) , No pain 15:49:07 73 23 94 133/78(99) NSR 0 (11) 10(A) , No pain 15:53:19 71 17 93 123/76(91) NSR 0 (11) 10(A) , No pain 15:57:27 71 19 94 122/76(88) NSR 0 (11) 10(A) , No pain 16:01:37 72 17 95 115/72(90) NSR 0 (11) 10(A) , No pain 16:05:42 72 17 95 117/72(96) NSR 0 (11) 10(A) , No pain 16:09:48 71 16 94 121/73(89) NSR 0 (11) 10(A) , No pain 16:13:58 72 18 93 116/70(86) NSR 0 (11) 10(A) , No pain 16:18:06 76 16 94 114/67(90) NSR 0 (11) 9(A) , No pain 16:22:16 78 17 93 100/63(74) NSR 0 (11) 9(A) , No pain 16:26:19 80 17 93 119/64(92) NSR 0 (11) 9(A) , No pain 16:30:31 77 19 94 104/63(83) NSR 0 (11) 9(A) , No pain 16:34:35 82 16 94 116/63(83) NSR 0 (11) 9(A) , No pain 16:38:43 86 16 94 126/72(91) NSR 0 (11) 10(A) , No pain 16:42:51 85 11 89 134/79(100) NSR 0 (11) 10(A) , No pain Medications Time Medication Route Dose Verified Delivered Reason Notes Effectiveness by by 15:35:53 Oxygen NC 2 Dieter Buffie used for l/min Richy Minaya RN procedure 15:35:59 Lidocaine 2% added 20ml Dieter Dieter for local to vial Richy Willis MD anesthetic field 15:36:05 Heparin Flush added 2 Dieter Dieter used for Bag to bags Richy Willis MD procedure (1000units/500ml field NS) 15:36:14 0.9% NaCl I.V. 100 Dieter Buffie Per physician ml/hr Richy Minaya RN 16:12:52 Versed I.V. 1 mg Dieter Buffie for sedation Richy Minaya RN 16:12:58 Fentanyl I.V. 50 Dieter Buffie for sedation mcg Richy Minaya RN 16:16:43 Versed I.V. 1 mg Dieter Buffie for sedation Richy Minaya RN 16:16:47 Fentanyl I.V. 50 Dieter Buffie for sedation mcg Richy Minaya RN 16:21:06 Versed I.V. 1 mg Dieter Steffie for sedation Richy Minaya RN 16:21:09 Fentanyl I.V. 50 Dieter Buffie for sedation [facility] Richy Minaya RN 16:28:59 Heparin Bolus I.V. 8000 Dieter Buffie for verifi ed units Richy Minaya RN anticoagulation with dr willis 16:36:38 Versed I.V. 1 mg Dieter Buffie for sedation Richy Minaya RN 16:36:43 Fentanyl I.V. 50 Dieter Stfefie for sedation [facility] Richy Minaya RN Procedure Log Time Note 15:04:34 Darius Gaxiola RT(R) sent for patient. Start room use. 15:04:35 Time tracking: Regular hours 15:04:39 Plan of Care:Hemodynamics will remain stable., Cardiac rhythm will remain stable., Comfort level will be maintained., Respiratory function will remain adequate., Patient/ family verbilizes understanding of procedure., Procedure tolerated without complication., Recovers from procedure without complications.. 15:27:59 Patient received from PCU to CCL 2 Alert and oriented. Tansferred to table in Supine position. 15:28:00 Warm blankets applied, and dom hugger turned on for patient comfort. 15:28:00 Correct patient and procedure confirmed by team. 15:28:01 Signed procedure consent form obtained from patient. 15:28:04 ECG and BP/O2 sat monitors applied to patient. 15:35:18 Vital chart was started 15:35:19 Baseline sample Acquired. 15:35:22 Rhythm: sinus rhythm 15:35:23 Full Disclosure recording started 15:35:53 Oxygen 2 l/min NC was administered by Shasta Minaya RN; used for procedure; 15:35:59 Lidocaine 2% 20ml vial added to field was administered by Dieter Willis MD; for local anesthetic; 15:36:05 Heparin Flush Bag (1000units/500ml NS) 2 bags added to field was administered by Dieter Willis MD; used for procedure; 15:36:14 0.9% NaCl 100 ml/hr I.V. was administered by Shasta Minaya RN; Per physician; 15:41:46 H&P Date Dictated: 04/03/2017 Emergent; H&P N/A. 15:41:47 Pre-procedure instructions explained to patient. 15:41:47 Pre-op teaching completed and patient verbalized understanding. 15:41:50 Family unavailable. 15:41:52 Patient NPO since Midnight. 15:41:54 Is the patient allergic to Iodine/contrast media? No. 15:41:56 Is patient on blood thinner?Yes 15:41:58 ACC The patient was administered the following blood thiners within the last 24 hours: ACCPlavix 15:42:01 Patient diabetic? No. 15:42:02 Previous problem with sedation/anesthesia? No ? 15:42:03 Snore? Yes 15:42:04 Sleep apnea? No 15:42:05 Deviated septum? No 15:42:05 Opens mouth fully? Yes 15:42:06 Sticks out tongue? Yes 15:42:08 Airway obstruction? No ? 15:42:11 Dentures? Yes OUT 15:42:15 Pre procedure: right dorsailis pedis pulse 1+ Palpable, but thready & weak; easily obliterated 15:42:18 Patient pain scale 0/10 ?. 15:42:27 IV patent on arrival in right forearm with 0.9% NaCl at O. 15:42:30 Lab results completed and on chart. 15:42:33 Right groin area was prepped with chlora-prep and draped in sterile fashion 15:42:33 Alarms reviewed by R. N. 15:42:34 Sharps counted by scrub and verified by R.N. 15:42:52 Use device set Femoral Dx 15:42:54 Tegaderm 4 x 4 opened to sterile field. 15:42:54 Acist Hand Control opened to sterile field. 15:42:55 Acist Manifold opened to sterile field. 15:42:56 Acist Syringe opened to sterile field. 15:42:57 Bag Decanter opened to sterile field. 15:42:57 Medline Cath Pack opened to sterile field. 15:42:59 St Gabriel 260cm J .035 wire opened to sterile field. 15:43:00 Diagnostic Infinity 5Fr Multipack catheter opened to sterile field. 15:52:58 IV Extension Set opened to sterile field. 16:10:36 Final Timeout: patient, procedure, and site verified with staff and physician. All members of the team are in agreement. 16:10:38 Right groin site verified by team. 16:10:41 Physical assessment completed. ASA score P 2 - A patient with mild systemic disease as per Dieter Willis MD. 16:10:44 Sedation plan: IV Moderate Sedation Versed, Fentanyl 16:12:52 Versed 1 mg I.V. was administered by Shasta Minaya RN; for sedation; 16:12:58 Fentanyl 50 mcg I.V. was administered by Shasta Minaya RN; for sedation; 16:13:52 Procedure started. 16:13:58 Local anesthetic to right femoral artery with Lidocaine 2% by Dieter Willis MD.INITIAL ACCESS ONLY 16:15:01 A 6 Fr Short sheath was inserted into the Right Femoral artery 16:16:43 Versed 1 mg I.V. was administered by Shasta Minaya RN; for sedation; 16:16:47 Fentanyl 50 mcg I.V. was administered by Shasta Minaya RN; for sedation; 16:17:04 Terumo 6Fr [place] Sheath opened to sterile field. 16:17:51 A Cordis 5Fr JL 4.0 Catheter (MP) was advanced over the wire and used for Left Coronary Angiography. 16:19:13 Catheter removed. 16:20:21 A Diagnostic Infinity 5Fr AR MOD Catheter was advanced over the wire and used for Right Coronary Angiography. 16:20:52 A Diagnostic Infinity 5Fr AR MOD Catheter was advanced over the wire and used for SVG Angiography.To Cx Occluded 16:20:55 Catheter removed. 16:21:06 Versed 1 mg I.V. was administered by hSasta Minaya RN; for sedation; 16:21:09 Fentanyl 50 mcg I.V. was administered by Shasta Minaya RN; for sedation; 16:21:58 A Diagnostic Infinity 5Fr IM catheter was advanced over the wire and used for Internal mammary arteriography.to LAD. 16:23:02 Catheter removed. 16:23:15 [employer] BasixCompak Inflation Kit opened to sterile field. 16:23:15 Cesar BMW [place] 2 J-tip 300cm 0.014 guide wir opened to sterile field. 16:23:21 Cordis 6FR XBLAD 3.5 guide catheter opened to sterile field. 16:23:33 A Cordis 5Fr Pigtail Catheter (MP) was advanced over the wire and used for LV Angiography. 16:23:53 High Pressure Extension Tubing (Richy) opened to sterile field. 16:25:00 LV gram done using CASPER 16:25:01 LV hemodynamics recorded. 16:25:05 Injector settings: Ml/sec: 10, Volume: 20, 16:25:09 EF : 60 % 16:27:16 6 Fr XBLAD 3.5 guide catheter was inserted over the wire 16:28:59 Heparin Bolus 8000 units I.V. was administered by Shasta Minaya RN; for anticoagulation; verified with dr willis 16:30:00 BMW wire advanced. 16:34:27 Inflation Number: 1 A Medtronic Integrity 2.5 X 26 stent was prepped and advanced across the 1st Ob Lissett. The stent was deployed at 12 TARAH for 0:16 (min:sec). 16:35:11 Stent catheter was removed intact over wire. 16:35:11 Wire removed. 16:35:12 Guide catheter removed. 16:35:19 Cordis 6Fr Exoseal opened to sterile field. 16:35:49 Sheath removed intact; hemostasis achieved with Exoseal to the Right Femoral artery. 16:35:52 Procedure ended.(Physican Out) 16:36:06 Fluoroscopy time 04.60 minutes. 16:36:11 Flurop Dose total: 679 16:36:11 Fluoroscopy dose: 679 mGy 16:36:38 Versed 1 mg I.V. was administered by Shasta Minaya RN; for sedation; 16:36:43 Fentanyl 50 mcg I.V. was administered by Shasta Minaya RN; for sedation; 16:37:29 Contrast amount:Isovue 300 131ml. 16:37:30 Sharps counted by scrub and verified by R.N. 16:37:31 Insertion/operative site no bleeding no hematoma. 16:37:34 Post-op/insertion site Right Femoral artery dressed using a 4 x 4 and Tegaderm. 16:37:39 Post right femoral artery:stable, clean and dry 16:40:48 Post Procedure Pulses reassessed and unchanged 16:40:54 Post-procedure physical assessment completed. ASA score P 2 - A patient with mild systemic disease as per Dietre Willis MD. 16:40:55 Post procedure rhythm: unchanged. 16:40:57 Estimated blood loss: 10 ml 16:40:58 Post procedure instruction explained to patient.Patient verbalizes understanding. 16:40:59 Patient needs reinforcement of post procedure teaching. 16:41:09 Procedure type changed to Cath procedure, Diagnostic procedure, LHC, LHC w/Coronaries, PCI procedure, Coronary Stent Initial, Miscellaneous Procedures, Moderate Sedation up to 30 minutes 16:41:29 Procedure Complication : No complications 16:41:31 See physician's report for complete and final results. 16:42:34 Procedure and supply charges have been captured, reviewed, submitted and are correct. 16:42:35 Vital chart was stopped 16:42:37 Report given to PCU. 16:42:44 Patient transfered to PCU with Bed. 16:42:46 Procedure ended. 16:42:46 Full Disclosure recording stopped 16:43:02 End room use (Document Last) Intervention Summary Intervention Notes Time ActionType Lesion and Equipment Action# Pressure Duration Attributes Used 16:34:27 Place stent 1st Ob Lissett Medtronic 1 12 00:16 Integrity 2.5 X 26 stent Device Usage Item Name Manufacture Quantity Catalog Hospital Part Current Minimal L ot# / Number Charge Number Stock Stock Serial# Code Tegade 4 1 [id number] 990607 117727 5 x 4 Acist Hand Acist 1 49238 768610 715836 940714 5 Control [employer] Systems Inc Acist Acist 1 99312 425400 566767 405393 5 Manifold Medical Systems Inc Acist Acist 1 49729 347088 091939 689097 20 Syringe Medical Systems Inc Bag Microtek 1 2002S 912748 64777 124511 5 [employer] Medline Cardinal 1 [id number] 902233 92076 235695 [address] [facility] 1 969395 669274 292972 530711 30 260cm J .035 wire Diagnostic Cardinal 1 [id number] 191494 47489 968344 30 Maxtena 5Fr Multipack catheter IV Hospira 1 81408-73 374814 07887 877950 5 Extension Set Terumo 6Fr Terumo 1 [id number] 691928 416021 336427 40 [place] Sheath Cordis 5Fr Cardinal 1 395090 5 JL 4.0 Health Catheter (MP) Diagnostic Cardinal 1 [id number] 635810 535047 443897 15 Maxtena 5Fr AR MOD Catheter Diagnostic Cardinal 1 [id number] 229797 459473 011005 5 Infinity Health 5Fr IM catheter Merit Merit 1 [id number] 790987 681666 268853 15 BasixCompak Medical Inflation Kit Cesar BMW Cesar 1 [id number] 688921 355009 550015 5 [place] 2 Vascular J-tip 300cm 0.014 guide wir Cordis 6FR Cardinal 1 [id number] 030370 260039 577567 10 XBLAD 3.5 Health guide catheter Cordis 5Fr Cardinal 1 882025 5 Pigtail Health Catheter (MP) High Merit 1 [id number] 286219 13631 914602 10 Pressure Medical Extension Tubing (Willis) Medtronic Medtronic 1 [id number] 325645 818635 1 0 [id number] Integrity 2.5 X 26 stent Cordis 6Fr Cardinal 1 EX600 692690 709083 165589 10 [facility] Health Signature Audit [place] Stage Time Signature Unsigned Intra-Procedure 04/03/2017 Rachel 4:43:27 PM Counts RT(R) Signatures Monitor : Darius Gaxiola RT Signature : Date : Time : Monitor : Rachel Signature : Counts RT Date : Time : [address] [address]
[2017-04-03 11:05] LABS: BASOPHILS 0.2 % (0-2); EOSINOPHILS 1.8 % (0-7); HEMATOCRIT 53.1 % (42.0-54.0); HEMOGLOBIN 17.6 g/dL (13.5-17.5); IMMATURE GRANULOCYTES 2.2 % (0-5); LYMPHOCYTES 18.6 % (15-50); MCH 29.5 pg (26.0-34.0); MCHC 33.1 g/dL (31.0-37.0); MCV 88.9 fL (80.0-100.0); MEAN PLATELET VOLUME 10.6 fL (7.4-10.4); MONOCYTES 5.8 % (2-11); NEUTROPHILS 71.4 % (40-80); PLATELET COUNT 298 10x3/uL (130-400); RBC 5.97 10x6/uL (4.20-6.10); RDW 14.4 % (11.5-14.5); WBC 17.1 10x3/uL (4.8-10.8)
[2017-04-03 11:22] LABS: ALBUMIN 3.6 g/dL (3.4-5.0); ALKALINE PHOSPHATASE 93 U/L (46-116); ALT (SGPT) 35 U/L (10-68); CALC OSMOLALITY 283 mosm/kg (275-300); CALCIUM 9.1 mg/dL (8.5-10.1); CARBON DIOXIDE 28.9 mmol/L (21.0-32.0); CHLORIDE - SERUM 103 mmol/L (98-107); CREATININE - SERUM 1.5 mg/dL (0.6-1.3); GLUCOSE 131 mg/dL (74-106); POTASSIUM - SERUM 4.4 mmol/L (3.5-5.1); PROTEIN - SERUM 7.7 g/dL (6.4-8.2); SODIUM 137 mmol/L (136-145); UREA NITROGEN 34 mg/dL (7-18); eGFR NON AFRICAN AMERICAN 50 mL/min (90-120)
[2017-04-03 11:34] LABS: CHOLESTEROL, TOTAL 199 mg/dL (0-200); CKMB 1.5 U/L (0.0-3.6); CREATINE KINASE 40 UL (21-232); HDL CHOLESTEROL 33 mg/dL (32-96); TROPONIN-I < 0.017 ng/mL (0.000-0.060)
[2017-04-03 11:36] LABS: TRIGLYCERIDE 567 mg/dL (30-200)
[~2017-04-03 11:54] MED LIST changes: -ASPIRIN325 MG; +ASPIRIN325 MG PO
--- NOTE | 2017-04-03 14:37 | NUR ---
TRANSFER FROM ER BY W/C. LOUIEINTED TO ROOM. CALL LIGHT IN REACH. WILL CONT. PLAN OF CARE.
[2017-04-03 14:48] VITALS: BP 135/73; Ht 180.3 cm; Wt 78.6 kg
[2017-04-03 15:26] LABS: CKMB 1.1 U/L (0.0-3.6); CREATINE KINASE 49 UL (21-232)
--- NOTE | 2017-04-03 15:26 | NUR ---
PRE-OPS GIVEN. TO REFRACTORY SPECIALIST BY BED.
[2017-04-03 15:29] LABS: TROPONIN-I < 0.017 ng/mL (0.000-0.060)
[2017-04-03 15:40] LABS: CALCIUM 9.1 mg/dL (8.5-10.1); CREATININE - SERUM 1.3 mg/dL (0.6-1.3)
[2017-04-03 15:42] LABS: ANION GAP 22.2 mmol/L (8-16); POTASSIUM - SERUM 5.2 mmol/L (3.5-5.1)
[2017-04-03 16:45] VITALS: BP 130/73
--- NOTE | 2017-04-03 17:05 | NUR ---
BACK FROM ASSEMBLY CLEANER. VS WNL. RIGHT GROIN STABLE WITHOUT BLEEDING OR HEMATOMA NOTED. WILL MONITOR.
--- NOTE | 2017-04-03 19:00 | NUR ---
INITIAL ROUNDS MADE. PT LYING IN BED FLAT, RIGHT GROIN STABLE. VSS. NO NEEDS OR C/O VOICED AT THIS TIME. WILL CONT TO MONITOR.
[2017-04-03 20:49] LABS: CKMB 1.4 U/L (0.0-3.6); CREATINE KINASE 83 UL (21-232)
[2017-04-03 21:03] LABS: TROPONIN-I < 0.017 ng/mL (0.000-0.060)
[2017-04-03 21:30] VITALS: BP 121/89
[2017-04-04 02:21] VITALS: BP 114/67
[2017-04-04 06:34] VITALS: BP 114/70
[2017-04-04 08:14] VITALS: BP 112/67
--- NOTE | 2017-04-04 10:02 | NUR ---
IV AND TELEMETRY DCD. DC PLANS GIVEN. UNDERSTANDING VOICED. ESCORTED TO CAR BY W/C.
== END 2017-04-04 10:04 | disposition home or self-care (01) ==
LOC: OBSVTIME → D.OPS 11:54 → D.ER 13:22 → D.M2 13:22 → OBSVTIME 13:22 → D.M2 13:22 → EDSTATUS 14:30 → D.OPS 04-04 10:04 → D.M2 04-04 10:04
PROVIDERS: Emergency Medicine; Internal Medicine Cardiovascular Disease
DX: I25.110 Atherosclerotic heart disease of native coronary artery with unstable angina pectoris (principal); I25.710 Atherosclerosis of autologous vein coronary artery bypass graft(s) with unstable angina pectoris; I10 Essential (primary) hypertension; E78.5 Hyperlipidemia, unspecified; I73.9 Peripheral vascular disease, unspecified; Z86.73 Personal history of transient ischemic attack (TIA), and cerebral infarction without residual deficits; Z79.82 Long term (current) use of aspirin; Z79.02 Long term (current) use of antithrombotics/antiplatelets; Z01.812 Encounter for preprocedural laboratory examination

== ENCOUNTER 2017-04-10 16:09 | Emergency (ER) | payer MEDICARE ==
[2017-04-03 14:48] VITALS: BMI 24.1
[2017-04-10 17:02] LABS: BASOPHILS 0.2 % (0-2); EOSINOPHILS 1.8 % (0-7); HEMATOCRIT 49.4 % (42.0-54.0); HEMOGLOBIN 16.1 g/dL (13.5-17.5); IMMATURE GRANULOCYTES 0.5 % (0-5); LYMPHOCYTES 20.2 % (15-50); MCH 28.9 pg (26.0-34.0); MCHC 32.6 g/dL (31.0-37.0); MCV 88.7 fL (80.0-100.0); MEAN PLATELET VOLUME 10.9 fL (7.4-10.4); MONOCYTES 5.2 % (2-11); NEUTROPHILS 72.1 % (40-80); RBC 5.57 10x6/uL (4.20-6.10); RDW 14.3 % (11.5-14.5); WBC 16.2 10x3/uL (4.8-10.8)
[2017-04-10 17:20] LABS: ALBUMIN 3.3 g/dL (3.4-5.0); ANION GAP 11.1 mmol/L (8-16); BILIRUBIN - TOTAL 0.31 mg/dL (0.2-1.3); CALCIUM 9.1 mg/dL (8.5-10.1); CARBON DIOXIDE 27.5 mmol/L (21.0-32.0); CREATININE - SERUM 1.6 mg/dL (0.6-1.3); PLATELET COUNT 217 10x3/uL (130-400); POTASSIUM - SERUM 4.6 mmol/L (3.5-5.1); PROTEIN - SERUM 7.2 g/dL (6.4-8.2)
[2017-04-10 17:20] LABS: APPEARANCE CLEAR (CLEAR); BILIRUBIN NEGATIVE (NEGATIVE); COLOR YELLOW (YELLOW); GLUCOSE NEGATIVE (NEGATIVE); KETONE NEGATIVE (NEGATIVE); LEUKOCYTE ESTERASE NEGATIVE (NEGATIVE); NITRITE NEGATIVE (NEGATIVE); PROTEIN 1+ mg/dL (NEGATIVE); SPECIFIC GRAVITY 1.025 (1.005-1.020); UROBILINOGEN NORMAL (NORMAL)
== END 2017-04-10 18:50 | disposition home or self-care (01) ==
LOC: D.ER 16:09
PROVIDERS: Nurse Practitioner Family
DX: I10 Essential (primary) hypertension (principal); Z98.890 Other specified postprocedural states; R51 Headache; F41.9 Anxiety disorder, unspecified

== ENCOUNTER 2018-03-08 07:32 | Outpatient (CLI) | payer MEDICARE ==
[~2018-03-08] VITALS: Ht 180.3 cm; Wt 79.5 kg
--- NOTE | ~2018-03-08 | HEMODYNAMI ---
PATIENT:ALISA HOPSON MEDICAL RECORD: [id number] : 55 LOCATION:[facility] ADMISSION DATE: 03/08/18 Generatedon:03/08/201811:09 Patient name: ALISA HOPSON Patient #: [id number] SSN: DO B: 1955 Date of study: 03/08/2018 Page: Of Hemodynamic Procedure Report Patient Data Patient Demographics Procedure consent was obtained First Name: ALISA Gender: Male Last Name: MARK ANTHONY : 1955 [facility] Initial: ZULY Age: 63 year(s) Patient #: [id number] Race: Unknown Additional ID: [id number] Contact details Address: [address] [place] [address] State: [place] City: [place] Zip code: [address] Past Medical History Allergies: No known allergies Admission Admission Data Admission Date: 03/08/2018 Admission Time: 7:32 Height (in.): 71 BSA: 2 (m2) Height (cm.): 180.34 BMI: 24.55 (kg/m2) Weight (lbs.): 176 Weight (kg.): 79.83 Lab Results Lab Result Date: 03/08/2018 Lab Result Time: 0:00 Biochemistry Name Units Result Min Max BUN mg/dl 19 --(----)*- 7 18 Creatinine mg/dl 1.4 --(----)*- 0.6 1.3 CBC Name Units Result Min Max Hemoglobin g/dl 16.2 --(--*-)-- 13.5 17.5 Procedure Procedure Types Cath Procedure Peripheral Cath Diagnostic Procedure Cath Peripheral Ibwdb-Hrziryz-Zvb-Off Procedure Description Procedure Date Procedure Date: 03/08/2018 Procedure Start Time: 10:51 Procedure End Time: 11:07 Procedure Staff Name Function Dieter Lockhart MD Performing Physician Dang Ramachandran RT Monitor Pineda Purvis RN Nurse Giulia Lomas RT Scrub Procedure Data Cath Procedure Fluoroscopy Diagnostic fluoroscopy Total fluoroscopy Time: 0.8 time: 0.8 min min Diagnostic fluoroscopy Total fluoroscopy dose: 117 dose: 117 mGy mGy Contrast Material Contrast Material Type Amount (ml) Isovue 300 70 Entry Location Entry Primary Successful Side Size Upsize Upsize Entry Closure Succes sful Closure Location (Fr) 1 (Fr) 2 (Fr) Remarks Device Remarks Femoral Left 5 Fr Exoseal artery Estimated blood loss: 10 ml Diagnostic catheters Device Type Used For End Catheter Placement DIAGNOSTIC UF 5Fr Procedure catheter ([id number]) Procedure Complications No complications Procedure Medications Medication Administration Route Dosage Oxygen etCO2 Nasal cannula 2 l/min Heparin Flush Bag added to field 2 bags (1000units/500ml NS) 0.9% NaCl I.V. 100 ml/hr Fentanyl I.V. 50 mcg Versed I.V. 1 mg Fentanyl I.V. 50 mcg Versed I.V. 1 mg Fentanyl I.V. 50 mcg Hemodynamics Rest BSA: 2 (m2) O2 Consumption: Estimated: 272 (ml/min) O2 Consumption indexed: Michelle mated:136 (ml/min/m) Pre Cath Intra NCS Post Cath Vital Signs Time Heart Resp SPO2 etCO2 NIBP (mmHg) Rhythm Pain Sedation Rate (ipm) (%) (mmHg) Status Level (bpm) 10:36:14 82 17 100 0 148/83(129) NSR 0 (11) 10(A) , No pain 10:40:53 71 17 100 0 149/91(140) NSR 0 (11) 10(A) , No pain 10:45:36 76 17 96 36.3 130/73(103) NSR 0 (11) 10(A) , No pain 10:50:14 69 17 98 38.8 135/73(108) NSR 0 (11) 9(A) , No pain 10:54:55 72 17 98 41.4 130/75(95) NSR 0 (11) 9(A) , No pain 10:59:33 72 16 99 35.4 123/70(98) NSR 0 (11) 9(A) , No pain 11:04:10 70 17 98 33.1 116/73(95) NSR 0 (11) 9(A) , No pain 11:09:05 67 12 98 27.8 120/66(96) NSR 0 (11) 9(A) , No pain Medications Time Medication Route Dose Verified Delivered Reason Notes Effe ctiveness by by 10:40:41 Oxygen etCO2 2 Dieter Pineda Per Nasal l/min Richy Purvis RN physician cannula 10:40:48 Heparin Flush added 2 Dieter Pineda used for Bag to bags Richy Purvis sql analyst (1000units/500ml field NS) 10:44:04 0.9% NaCl I.V. 100 Dieter Pineda Per ml/hr Richy Purvis RN physician 10:44:32 Fentanyl I.V. 50 Dieter Pineda for mcg Richy Purvis RN sedation 10:44:38 Versed I.V. 1 mg Dieter Pineda for Richy Purvis RN sedation 10:47:56 Fentanyl I.V. 50 Dieter Pineda for mcg Richy Purvis RN sedation 10:48:00 Versed I.V. 1 mg Dieter Pineda for Richy Purvis RN sedation 10:52:52 Fentanyl I.V. 50 Dieter Pineda for mcg Richy Purvis RN sedation Procedure Log Time Note 10:10:32 Giulia Lomas RT(R) sent for patient. Start room use. 10:22:01 Diagnostic Cath status Elective 10:22:51 Time tracking: Regular hours (M-F 7:00 - 5:00) 10:23:01 Plan of Care:Hemodynamics will remain stable., Cardiac rhythm will remain stable., Comfort level will be maintained., Respiratory function will remain adequate., Patient/ family verbilizes understanding of procedure., Procedure tolerated without complication.. 10:23:08 Patient received from Pre/Post Procedure Room to CCL 1 Alert and oriented. Tansferred to table in Supine position. 10:23:10 Warm blankets applied, and dom hugger turned on for patient comfort. 10:23:11 Correct patient and procedure confirmed by team. 10:23:43 Patient Height : 71 inches 10:23:52 Patient Weight : 176 lbs 10:29:26 Lab Result : Hemoglobin 16.2 g/dl 10:29:26 Lab Result : Creatinine 1.4 mg/dl 10:29:26 Lab Result : BUN 19 mg/dl 10:29:34 Signed procedure consent form obtained from patient. 10:29:37 ECG and BP/O2 sat monitors applied to patient. 10:29:57 H&P Date Dictated: 02/21/2018 Within 30 days and on chart., H&P Addendum completed by physician on day of procedure. (MUST COMPLETE FOR ALL OUTPATIENTS). 10:30:07 Pre-procedure instructions explained to patient. 10:30:10 Family in waiting room. 10:30:16 Patient NPO since Midnight. 10:34:56 Vital chart was started 10:40:41 Oxygen 2 l/min etCO2 Nasal cannula was administered by Pineda Purvis RN; Per physician; 10:40:48 Heparin Flush Bag (1000units/500ml NS) 2 bags added to field was administered by Pineda Purvis RN; used for procedure; 10:43:08 Patient allergic to No known allergies 10:43:13 Is patient on blood thinner?Yes 10:43:17 ACC The patient was administered the following blood thiners within the last 24 hours: ACCPlavix 10:43:35 Snore? Yes 10:43:52 IV patent on arrival in left forearm with 0.9% NaCl at [facility]. 10:44:00 Lab results completed and on chart. 10:44:04 0.9% NaCl 100 ml/hr I.V. was administered by Pineda Purvis RN; Per physician; 10:44:06 Bilateral groins area was prepped with chlora-prep and draped in sterile fashion 10:44:07 Alarms reviewed by R. N. 10:44:08 Sharps counted by scrub and verified by R.N. 10:44:09 Physician paged 10:44:11 Physician arrived 10:44:11 --------ALL STOP TIME OUT------ 10:44:12 Final Timeout: patient, procedure, and site verified with staff and physician. All members of the team are in agreement. 10:44:14 Bilateral groins site verified by team. 10:44:21 Physical assessment completed. ASA score P 2 - A patient with mild systemic disease as per Dieter Lockhart MD. 10:44:25 Sedation plan: IV Moderate Sedation Medication:Versed, Fentanyl 10:44:32 Fentanyl 50 mcg I.V. was administered by Pineda Purvis RN; for sedation; 10:44:38 Versed 1 mg I.V. was administered by Pineda Purvis RN; for sedation; 10:47:56 Fentanyl 50 mcg I.V. was administered by Pineda Purvis RN; for sedation; 10:48:00 Versed 1 mg I.V. was administered by Pineda Purvis RN; for sedation; 10:49:26 Zero performed for pressure channel P1 10:50:25 Use device set Femoral Dx 10:50:32 Procedure started. 10:50:32 Full Disclosure recording started 10:51:30 Local anesthetic to left femerol artery with Lidocaine 2% by Dieter Lockhart MD.INITIAL ACCESS ONLY 10:51:35 ACIST Syringe (43602) opened to sterile field. 10:51:36 Bag Decanter (2002S) opened to sterile field. 10:51:36 Medline Cath Pack ([id number]) opened to sterile field. 10:51:37 DIAGNOSTIC WIRE .035 260cm J wire (702037) opened to sterile field. 10:51:38 ACIST Hand Control (45640) opened to sterile field. 10:51:39 ACIST Manifold (16025) opened to sterile field. 10:51:41 Tegaderm 4 x 4 (1626W) opened to sterile field. 10:51:42 PERCUTANEOUS ENTRY 19GA needle opened to sterile field. 10:51:45 SHEATH Prelude 5Fr 0.035 ([id number]) opened to sterile field. 10:52:15 A 5 Fr sheath was inserted into the Left Femoral artery 10:52:52 Fentanyl 50 mcg I.V. was administered by Pineda Purvis RN; for sedation; 10:54:52 A DIAGNOSTIC UF 5Fr catheter ([id number]) was advanced over the wire and used for Procedure. 10:55:14 Abdominal angiogram w/ runoff was performed. 10:56:22 Left leg runoff performed. 11:02:34 EXOSEAL 5Fr (EX500) opened to sterile field. 11:03:01 Wire removed. 11:04:26 Sheath removed intact; hemostasis achieved with Exoseal to the Left Femoral artery. 11:04:33 Procedure ended.(Physican Out) 11:04:57 Fluoroscopy time 00.80 minutes. 11:05:02 Fluoroscopy dose: 117 mGy 11:05:02 Flurop Dose total: 117 11:05:06 Contrast amount:Isovue 300 70ml. 11:05:08 Sharps counted by scrub and verified by R.N. 11:05:09 Insertion/operative site no bleeding no hematoma. 11:05:21 Post-procedure physical assessment completed. ASA score P 2 - A patient with mild systemic disease as per Dieter Lockhart MD. 11:05:25 Post procedure rhythm: unchanged. 11:05:28 Estimated blood loss: 10 ml 11:05:31 Post procedure instruction explained to patient.Patient verbalizes understanding. 11:05:54 Procedure and supply charges have been captured, reviewed, submitted and are correct. 11:07:05 Procedure Complication : No complications 11:07:08 Vital chart was stopped 11:07:11 Report given to Pre/Post Procedure Room. 11:07:14 Patient transfered to Pre/Post Procedure Room with Stretcher. 11:07:17 Procedure ended. 11:07:17 Full Disclosure recording stopped 11:07:20 End room use (Document Last) Device Usage Item Name Manufacture Quantity Catalog Number Hospital Part Current M inimal Lot# / Charge Number Stock Stock Serial# Code ACIST Syringe Acist 1 84506 651693 505221 [id number] 2 0 (65229) [employer] Bag Decanter Microtek 1 2001S 792181 52167 607132 5 (2001S) Medical Inc. Medline Cath Cardinal 1 [id number] 742291 32530 554976 5 Pack Health ([id number]) DIAGNOSTIC WIRE [facility] 1 036182 697273 218405 966535 3 0 .035 260cm J wire (198573) ACIST Hand Acist 1 41322 535177 963912 622814 5 Control (65679) [employer] ACIST Manifold Acist 1 51701 455337 984948 304567 5 (85612) [employer] Tegaderm 4 x 4 3M 1 1626W 848552 607641 430348 5 (1626W) PERCUTANEOUS Cook Medical 1 [id number] 638819 201967 5 ENTRY 19GA needle SHEATH Prelude Merit 1 [id number] 102072 880567 413959 5 5Fr 0.035 Medical ([id number]) DIAGNOSTIC UF Cardinal 1 [id number] 325146 294806 442028 1 0 5Fr catheter Health ([id number]) EXOSEAL 5Fr Cardinal 1 EX500 755535 213737 142444 1 0 (EX500) Health Signature Audit [place] Stage Time Signature Unsigned Intra-Procedure 03/08/2018 Dang Ramachandran 11:09:34 AM RT(R) Signatures Monitor : Dang Ramachandran Signature : RT Date : Time : [address] [place] [address]
[2018-03-08 08:31] VITALS: BP 156/82; Ht 180.3 cm; Wt 79.5 kg
[2018-03-08 08:41] LABS: BASOPHILS 0.2 % (0-2); EOSINOPHILS 3.3 % (0-7); HEMATOCRIT 47.8 % (42.0-54.0); HEMOGLOBIN 16.2 g/dL (13.5-17.5); IMMATURE GRANULOCYTES 0.4 % (0-5); LYMPHOCYTES 26.6 % (15-50); MCH 30.2 pg (26.0-34.0); MCHC 33.9 g/dL (31.0-37.0); MCV 89.2 fL (80.0-100.0); MEAN PLATELET VOLUME 11.1 fL (7.4-10.4); MONOCYTES 7.4 % (2-11); NEUTROPHILS 62.1 % (40-80); PLATELET COUNT 203 10x3/uL (130-400); RBC 5.36 10x6/uL (4.20-6.10); RDW 13.6 % (11.5-14.5); WBC 12.3 10x3/uL (4.8-10.8)
[2018-03-08 08:46] LABS: ANION GAP 9.9 mmol/L (8-16); CALCIUM 9.1 mg/dL (8.5-10.1); CREATININE - SERUM 1.4 mg/dL (0.6-1.3); POTASSIUM - SERUM 3.9 mmol/L (3.5-5.1)
== END 2018-03-08 14:40 | disposition home or self-care (01) ==
LOC: D.CATH 07:32
PROVIDERS: Internal Medicine Cardiovascular Disease
DX: I70.213 Atherosclerosis of native arteries of extremities with intermittent claudication, bilateral legs (principal); Z01.812 Encounter for preprocedural laboratory examination

== ENCOUNTER → 2018-03-26 11:12 | Outpatient (CLI) | payer MEDICARE ==
[2018-03-08 08:31] VITALS: BMI 24.4
== END | disposition home or self-care (01) ==
LOC: D.CT 11:12
DX: I73.9 Peripheral vascular disease, unspecified (principal); I70.219 Atherosclerosis of native arteries of extremities with intermittent claudication, unspecified extremity

== ENCOUNTER 2018-05-24 06:11 | Outpatient (CLI) | payer MEDICARE ==
[~2018-05-24] VITALS: Ht 180.3 cm; Wt 72.7 kg
--- NOTE | ~2018-05-24 | HEMODYNAMI ---
PATIENT:ALISA HOPSON MEDICAL RECORD: [id number] : 55 LOCATION:[facility] ADMISSION DATE: 05/24/18 Generatedon:05/24/20188:58 Patient name: ALISA HOPSON Patient #: [id number] SSN: DO B: 1955 Date of study: 05/24/2018 Page: Of Hemodynamic Procedure Report Patient Data Patient Demographics Procedure consent was obtained First Name: ALISA Gender: Male Last Name: MARK ANTHONY : 1955 [facility] Initial: ZULY Age: 63 year(s) Patient #: [id number] Race: Unknown Additional ID: [id number] Contact details [address]: [address] [place] [address] State: [place] City: [place] Zip code: [address] Past Medical History Allergies: No known allergies Admission Admission Data Admission Date: 05/24/2018 Admission Time: 6:11 Admit Source: Other Procedure Procedure Types Cath Procedure Peripheral vascular Intervention Stent Stent Iliac w/plasty Initial Procedure Description Procedure Date Procedure Date: 05/24/2018 Procedure Start Time: 8:09 Procedure End Time: 8:52 Procedure Staff Name Function Dieter Lockhart MD Performing Physician Giulia Lomas RT Monitor Hector Quintanilla RN Nurse Procedure Data Cath Procedure Fluoroscopy Diagnostic fluoroscopy Total fluoroscopy Time: time: 10.6 min 10.6 min Diagnostic fluoroscopy Total fluoroscopy dose: 265 dose: 265 mGy mGy Contrast Material Contrast Material Type Amount (ml) Isovue 300 79 Entry Location Entry Primary Successful Side Size Upsize Upsize Entry Closure Succes sful Closure Location (Fr) 1 (Fr) 2 (Fr) Remarks Device Remarks Femoral Left 5 Fr 6 Fr 6 Fr Exoseal artery Long Short Estimated blood loss: 5 ml Diagnostic catheters Device Type Used For End Catheter Placement DIAGNOSTIC Pigtail 5Fr Multi-vessel catheter ([id number]) Angiography DIAGNOSTIC IMT 5Fr Multi-vessel Catheter ([id number]) Angiography Procedure Complications No complications Procedure Medications Medication Administration Route Dosage 0.9% NaCl I.V. 100 ml/hr Oxygen etCO2 Nasal cannula 2 l/min Heparin Flush Bag added to field 2 bags (1000units/500ml NS) Lidocaine 2% added to field 20 Versed 2 mg Fentanyl I.V. 100 mcg Fentanyl I.V. 50 mcg Heparin Bolus I.V. 7300 units Hemodynamics Rest Heart Rate: 78 (bpm) Snapshots Pre Cath Intra NCS Post Cath Vital Signs Time Heart Resp SPO2 etCO2 NIBP (mmHg) Rhythm Pain Sedation Rate (ipm) (%) (mmHg) Status Level (bpm) 7:51:26 72 13 93 0 140/95(109) NSR 0 (11) 10(A) , No pain 7:56:44 70 16 99 47.3 169/92(140) NSR 0 (11) 10(A) , No pain 8:01:28 73 14 98 21.8 142/77(113) NSR 0 (11) 10(A) , No pain 8:06:07 72 12 98 8.2 134/71(106) NSR 0 (11) 10(A) , No pain 8:10:47 71 12 98 0 131/72(107) NSR 0 (11) 9(A) , No pain 8:15:26 73 14 98 41.3 130/77(103) NSR 0 (11) 9(A) , No pain 8:20:04 71 19 98 19.5 124/74(98) NSR 0 (11) 9(A) , No pain 8:24:41 71 18 98 27 120/74(96) NSR 0 (11) 9(A) , No pain 8:29:17 69 19 98 26.3 123/71(97) NSR 0 (11) 9(A) , No pain 8:33:56 69 14 98 24 117/62(97) NSR 0 (11) 9(A) , No pain 8:38:32 72 19 97 25.5 118/70(96) NSR 0 (11) 9(A) , No pain 8:43:09 71 19 97 24 121/66(92) NSR 0 (11) 9(A) , No pain 8:47:45 74 15 97 24.8 127/72(98) NSR 0 (11) 9(A) , No pain 8:52:22 73 16 98 27.8 130/74(99) NSR 0 (11) 9(A) , No pain Medications Time Medication Route Dose Verified Delivered Reason Notes Effectiveness by by 7:54:50 0.9% NaCl I.V. 100 Hector Hector Per physician ml/hr Socorro Quintanilla RN RN 7:55:01 Oxygen etCO2 2 Hector Hector Per physician Nasal l/min Socorro Quintanilla cannula RN RN 7:55:14 Heparin Flush added 2 Hector Hector used for Bag to bags Socorro Quintanilla procedure (1000units/500ml field RN RN NS) 7:55:27 Lidocaine 2% added 20ml Hector Hector for local to vial Socorro Quintanilla anesthetic field RN RN 8:06:57 Versed 2 mg Hector Hector for sedation Socorro Quintanilla RN RN 8:07:10 Fentanyl I.V. 100 Hector Hector for sedation mcg Socorro Quintanilla RN RN 8:16:35 Fentanyl I.V. 50 Hector Hector for sedation mcg Socorro Quintanilla RN RN 8:31:05 Heparin Bolus I.V. 7,300 Hector Hector for units Socorro Quintanilla anticoagulation RN occupational health manager Log Time Note 7:31:47 Admit Source: Other 7:32:19 Petr Sauceda RT scrub 7:32:23 Diagnostic Cath status Elective 7:32:26 Hector Quintanilla RN sent for patient. Start room use. 7:32:28 Time tracking: Regular hours (M-F 7:00 - 5:00) 7:32:33 Plan of Care:Hemodynamics will remain stable., Cardiac rhythm will remain stable., Comfort level will be maintained., Respiratory function will remain adequate., Patient/ family verbilizes understanding of procedure., Procedure tolerated without complication., Recovers from procedure without complications.. 7:43:16 Patient received from Pre/Post Procedure Room to CCL 1 Alert and oriented. Tansferred to table in Supine position. 7:43:18 Warm blankets applied, and dom hugger turned on for patient comfort. 7:43:19 Correct patient and procedure confirmed by team. 7:43:20 Signed procedure consent form obtained from patient. 7:43:21 ECG and BP/O2 sat monitors applied to patient. 7:45:56 Vital chart was started 7:54:50 0.9% NaCl 100 ml/hr I.V. was administered by Hector Quintanilla RN; Per physician; 7:55:01 Oxygen 2 l/min etCO2 Nasal cannula was administered by Hector Quintanilla RN; Per physician; 7:55:14 Heparin Flush Bag (1000units/500ml NS) 2 bags added to field was administered by Hector Quintanilla RN; used for procedure; 7:55:27 Lidocaine 2% 20ml vial added to field was administered by Hector Quintanilla RN; for local anesthetic; 7:56:04 Baseline sample Acquired. 7:56:09 Rhythm: sinus rhythm 7:56:11 Full Disclosure recording started 7:57:56 H&P Date Dictated: 05/24/2018 Within 30 days and on chart., H&P Addendum completed by physician on day of procedure. (MUST COMPLETE FOR ALL OUTPATIENTS). 7:57:57 Pre-procedure instructions explained to patient. 7:57:58 Pre-op teaching completed and patient verbalized understanding. 7:57:59 Family in waiting room. 7:58:01 Patient NPO since Midnight. 7:58:03 Is the patient allergic to Iodine/contrast media? No. 7:58:04 Was the patient premedicated? No 8:04:35 Is patient on blood thinner?Yes 8:04:37 ACC The patient was administered the following blood thiners within the last 24 hours: ACCPlavix 8:04:40 Patient diabetic? No. 8:04:43 Previous problem with sedation/anesthesia? No ? 8:04:46 Snore? Yes 8:04:47 Sleep apnea? No 8:04:48 Deviated septum? No 8:04:49 Opens mouth fully? Yes 8:04:50 Sticks out tongue? Yes 8:04:54 Airway obstruction? Yes copd 8:04:58 Dentures? No ? 8:05:02 Pre procedure: right dorsailis pedis pulse 1+ Palpable, but thready & weak; easily obliterated 8:05:04 Pre procedure: left dorsailis pedis pulse 1+ Palpable, but thready & weak; easily obliterated 8:05:06 Patient pain scale 0/10 ?. 8:05:18 IV patent on arrival in left forearm with 0.9% NaCl at O. 8:05:21 Lab results completed and on chart. 8:05:26 Bilateral groins area was prepped with chlora-prep and draped in sterile fashion 8:05:28 Alarms reviewed by R. N. 8:05:28 Sharps counted by scrub and verified by R.N. 8:05:39 Physician arrived 8:05:40 --------ALL STOP TIME OUT------ 8:05:40 Final Timeout: patient, procedure, and site verified with staff and physician. All members of the team are in agreement. 8:05:42 Bilateral groins site verified by team. 8:05:45 Physical assessment completed. ASA score P 2 - A patient with mild systemic disease as per Dieter Lockhart MD. 8:05:49 Sedation plan: IV Moderate Sedation Medication:Versed, Fentanyl 8:06:50 Use device set Femoral Dx 8:06:52 ACIST Syringe (85255) opened to sterile field. 8:06:52 Bag Decanter (2002S) opened to sterile field. 8:06:53 Medline Cath Pack ([id number]) opened to sterile field. 8:06:54 DIAGNOSTIC WIRE .035 260cm J wire (024161) opened to sterile field. 8:06:57 Versed 2 mg was administered by Hector Quintanilla RN; for sedation; 8:07:10 Fentanyl 100 mcg I.V. was administered by Hector Quintanilla RN; for sedation; 8:09:26 ACIST Hand Control (71473) opened to sterile field. 8:09:27 ACIST Manifold (13459) opened to sterile field. 8:09:29 Tegaderm 4 x 4 (1626W) opened to sterile field. 8:09:31 SHEATH Prelude 5Fr 0.035 ([id number]-7X-47-035) opened to sterile field. 8:09:42 SHEATH 6Fr Prelude ([id number]) opened to sterile field. 8:09:46 Procedure started. 8:09:53 Local anesthetic to left femerol artery with Lidocaine 2% by Dieter Lockhart MD.INITIAL ACCESS ONLY 8:14:04 A 5 Fr sheath was inserted into the Left Femoral artery 8:15:41 A DIAGNOSTIC Pigtail 5Fr catheter ([id number]) was advanced over the wire and used for Multi-vessel Angiography. 8:16:35 Fentanyl 50 mcg I.V. was administered by Hector Quintanilla RN; for sedation; 8:17:13 Abdominal Aortagram was performed. 8:19:15 Catheter removed. 8:19:24 A DIAGNOSTIC IMT 5Fr Catheter ([id number]) was advanced over the wire and used for Multi-vessel Angiography. 8:21:44 WHOLEY 300cm 0.035 wire ([id number]) opened to sterile field. 8:22:21 Right leg runoff performed. 8:23:15 wholey wire advanced. 8:23:26 Catheter removed. 8:23:51 SHEATH 6FR Destination (RSR01) opened to sterile field. 8:24:23 Sheath upsized to a 6 Fr Long. 8:30:33 Procedure type changed to Cath procedure, Peripheral vascular Intervention, Stent, Stent Iliac w/plasty Initial 8:31:05 Heparin Bolus 7,300 units I.V. was administered by Hector Quintanilla RN; for anticoagulation; 8:32:05 Inflate balloon Inflation number: 1 A POWERFLEX PRO 4.0 x 40 x 135cm balloon ([id number]) was prepped and advanced across the Mid External Iliac, Right, then inflated to 6 TARAH for 0:10 (min:sec). 8:32:15 Balloon removed over the wire. 8:44:19 SMART Flex 5 X 40 X 120 stent ([id number]) was deployed across Mid External Iliac, Right . 8:44:25 Stent catheter was removed intact over wire. 8:46:49 Inflate balloon Inflation number: 2 A POWERFLEX PRO 5.0 x 40 x 135cm balloon ([id number]) was prepped and advanced across the Mid External Iliac, Right, then inflated to 8 TARAH for 0:10 (min:sec). 8:47:18 Balloon removed over the wire. 8:49:15 Wire removed. 8:49:29 Sheath upsized to a 6 Fr Short. 8:49:39 EXOSEAL 6Fr (EX600) opened to sterile field. 8:49:53 Sheath removed intact; hemostasis achieved with Exoseal to the Left Femoral artery. 8:50:26 Procedure ended.(Physican Out) 8:50:36 Fluoroscopy time 10.60 minutes. 8:50:40 Flurop Dose total: 265 8:50:40 Fluoroscopy dose: 265 mGy 8:50:51 Contrast amount:Isovue 300 79ml. 8:50:53 Sharps counted by scrub and verified by R.N. 8:50:54 Insertion/operative site no bleeding no hematoma. 8:50:59 Post-op/insertion site Left Femoral artery dressed using a 4 x 4 and Tegaderm. 8:51:05 Post left femerol artery:stable 8:51:07 Post Procedure Pulses reassessed and unchanged 8:51:10 Post procedure rhythm: unchanged. 8:51:18 Estimated blood loss: 5 ml 8:51:40 Post procedure instruction explained to patient.Patient verbalizes understanding. 8:51:40 Patient needs reinforcement of post procedure teaching. 8:51:41 Procedure and supply charges have been captured, reviewed, submitted and are correct. 8:51:46 Procedure Complication : No complications 8:51:48 Vital chart was stopped 8:51:49 See physician's report for complete and final results. 8:51:53 Report given to Pre/Post Procedure Room. 8:51:56 Patient transfered to Pre/Post Procedure Room with Stretcher. 8:52:04 Procedure ended. 8:52:04 Full Disclosure recording stopped 8:52:21 ACC-PCI Only Patient was given prescriptions, or instructed by Dieter Lockhart MD to start/continue the following medications upon discharge: Plavix 8:52:38 End room use (Document Last) Intervention Summary Intervention Notes Time ActionType Lesion and Equipment Action# Pressure Duration Attributes Used 8:32:05 Inflate Mid POWERFLEX 1 6 00:10 balloon External PRO 4.0 x Iliac, 40 x 135cm Right balloon ([id number]) 8:44:19 Deploy self Mid SMART Flex 1 expanding External 5 X 40 X stent Iliac, 120 stent Right ([id number]) 8:46:49 Inflate Mid POWERFLEX 2 8 00:10 balloon External PRO 5.0 x Iliac, 40 x 135cm Right balloon ([id number]) Device Usage Item Name Manufacture Quantity Catalog Number Hospital Part Current M inimal Lot# / Charge Number Stock Stock Serial# Code ACIST Syringe Acist 1 59598 850824 191341 464044 2 0 (39580) [employer] Bag Decanter Microtek 1 208103 62995 758882 5 () Medical Inc. Medline Cath Cardinal 1 [id number] 990456 54856 579561 5 Kashmi ([id number]) DIAGNOSTIC WIRE [facility] [place] 1 209347 123275 181364 984368 3 0 .035 260cm J wire (628198) ACIST Hand Acist 1 80615 145583 924378 545987 5 Control (38782) [employer] Inc ACIST Manifold Acist 1 78327 569844 403115 304778 5 (27374) [employer] Systems Inc Tegaderm 4 x 4 3M 1 1626W 162254 298883 306476 5 (1626W) SHEATH Prelude Merit 1 [id number] 376654 738177 765649 5 5Fr 0.035 Medical (FYQ-5S-38-035) SHEATH 6Fr Merit 1 [id number] 248240 010792 098328 5 Prelude Medical ([id number]) DIAGNOSTIC Cardinal 1 [id number] 451732 486872 335853 5 Pigtail 5Fr Health catheter ([id number]) DIAGNOSTIC IMT [place] 1 [id number] 945159 719577 96189 5 5Fr Catheter Scientific ([id number]) WHOLEY 300cm Medtronic 1 [id number] 176694 090946 650651 3 0.035 wire ([id number]) SHEATH 6FR Terumo 1 RSR01 124555 96149 830523 5 Destination (RSR01) POWERFLEX PRO Cardinal 1 [id number] 685066 189263 253674 5 4.0 x 40 x Health 135cm balloon ([id number]) SMART Flex 5 X Cardinal 1 [id number] 255034 800337 0 18651 40 X 120 stent Health ([id number]) POWERFLEX PRO Cardinal 1 [id number] 522101 833011 026162 5 5.0 x 40 x Health 135cm balloon ([id number]) EXOSEAL 6Fr Cardinal 1 EX600 671981 399308 688253 1 0 (EX600) Health Signature Audit Thompson Stage Time Signature Unsigned Intra-Procedure 05/24/2018 Giulia Lomas 8:58:09 AM RT(R) Signatures Monitor : Giulia Lomas RT Signature : Date : Time : [facility] [address] [place] [address]
[2018-05-24 06:47] VITALS: BP 159/81; Ht 180.3 cm; Wt 72.7 kg
[2018-05-24 06:59] LABS: BASOPHILS 0.2 % (0-2); EOSINOPHILS 4.3 % (0-7); HEMOGLOBIN 15.3 g/dL (13.5-17.5); IMMATURE GRANULOCYTES 0.5 % (0-5); LYMPHOCYTES 28.9 % (15-50); MCH 29.5 pg (26.0-34.0); MCHC 33.3 g/dL (31.0-37.0); MCV 88.8 fL (80.0-100.0); MEAN PLATELET VOLUME 11.1 fL (7.4-10.4); MONOCYTES 6.5 % (2-11); NEUTROPHILS 59.6 % (40-80); PLATELET COUNT 200 10x3/uL (130-400); RBC 5.18 10x6/uL (4.20-6.10); RDW 13.7 % (11.5-14.5); WBC 13.3 10x3/uL (4.8-10.8)
[2018-05-24 07:21] LABS: ANION GAP 8.6 mmol/L (8-16); CALCIUM 8.3 mg/dL (8.5-10.1); CARBON DIOXIDE 31.6 mmol/L (21.0-32.0); CREATININE - SERUM 1.4 mg/dL (0.6-1.3); POTASSIUM - SERUM 4.2 mmol/L (3.5-5.1)
== END 2018-05-24 13:10 | disposition home or self-care (01) ==
LOC: D.CATH 06:11
PROVIDERS: Internal Medicine Cardiovascular Disease
DX: I70.211 Atherosclerosis of native arteries of extremities with intermittent claudication, right leg (principal)

== ENCOUNTER 2018-08-03 02:11 | Emergency (ER) | payer MEDICARE ==
[~2018-08-03] VITALS: Ht 180.3 cm; Wt 78.2 kg
[2018-08-03 02:15] VITALS: Ht 180.3 cm; Wt 78.2 kg
[2018-08-03 02:50] VITALS: BP 168/75
== END 2018-08-03 02:49 | disposition home or self-care (01) ==
LOC: D.ER 02:11
DX: T16.1XXA Foreign body in right ear, initial encounter (principal); X58.XXXA Exposure to other specified factors, initial encounter; Y93.89 Activity, other specified; Y92.019 Unspecified place in single-family (private) house as the place of occurrence of the external cause; Z86.73 Personal history of transient ischemic attack (TIA), and cerebral infarction without residual deficits; I25.10 Atherosclerotic heart disease of native coronary artery without angina pectoris; I73.9 Peripheral vascular disease, unspecified; J44.9 Chronic obstructive pulmonary disease, unspecified; K21.9 Gastro-esophageal reflux disease without esophagitis

== ENCOUNTER 2018-08-12 14:49 | Emergency (ER) | payer MEDICARE ==
[~2018-08-12] VITALS: Ht 180.3 cm; Wt 77.3 kg
[2018-08-12 14:55] VITALS: Ht 180.3 cm; Wt 77.3 kg
[2018-08-12] MEDS ORDERED: TESSALON PERLE100 MG PO (15:38)
[2018-08-12 16:10] VITALS: BP 136/75
== END 2018-08-12 16:10 | disposition home or self-care (01) ==
LOC: D.ER 14:49
DX: J41.0 Simple chronic bronchitis (principal); R06.02 Shortness of breath; F17.200 Nicotine dependence, unspecified, uncomplicated

== ENCOUNTER 2018-08-31 17:55 | Emergency (ER) | payer MEDICARE ==
[~2018-08-31] VITALS: Ht 180.3 cm; Wt 77.3 kg
[~2018-08-31 17:55] MED LIST changes: +TESSALON PERLE100 MG PO
[2018-08-31 18:13] VITALS: Ht 180.3 cm; Wt 77.3 kg
[2018-08-31 18:49] LABS: BASOPHILS 0.2 % (0-2); EOSINOPHILS 4.3 % (0-7); HEMATOCRIT 49.1 % (42.0-54.0); HEMOGLOBIN 16.3 g/dL (13.5-17.5); IMMATURE GRANULOCYTES 0.3 % (0-5); LYMPHOCYTES 21.2 % (15-50); MCH 30.3 pg (26.0-34.0); MCHC 33.2 g/dL (31.0-37.0); MCV 91.3 fL (80.0-100.0); MONOCYTES 6.7 % (2-11); NEUTROPHILS 67.3 % (40-80); PLATELET COUNT 229 10x3/uL (130-400); RBC 5.38 10x6/uL (4.20-6.10); RDW 14.1 % (11.5-14.5); WBC 13.9 10x3/uL (4.8-10.8)
[2018-08-31 19:06] LABS: ALBUMIN 3.5 g/dL (3.4-5.0); ANION GAP 9.3 mmol/L (8-16); BILIRUBIN - TOTAL 0.19 mg/dL (0.2-1.3); CALCIUM 9.4 mg/dL (8.5-10.1); CARBON DIOXIDE 30.1 mmol/L (21.0-32.0); CREATININE - SERUM 1.5 mg/dL (0.6-1.3); POTASSIUM - SERUM 4.4 mmol/L (3.5-5.1); PROTEIN - SERUM 7.8 g/dL (6.4-8.2)
[2018-08-31] MEDS ORDERED: ALBUTEROL SULF8.5 GM INH (20:27)
[2018-08-31] MEDS ORDERED: ZPAK PO (20:30)
[2018-08-31 20:59] VITALS: BP 133/56
== END 2018-08-31 21:00 | disposition home or self-care (01) ==
LOC: D.ER 17:55
PROVIDERS: Family Medicine
DX: J41.1 Mucopurulent chronic bronchitis (principal); R09.89 Other specified symptoms and signs involving the circulatory and respiratory systems; F17.200 Nicotine dependence, unspecified, uncomplicated

== ENCOUNTER 2019-08-13 10:29 | Outpatient (CLI) | payer MEDICARE ==
[~2019-08-13] VITALS: Ht 180.3 cm; Wt 75.0 kg
--- NOTE | ~2019-08-13 | HEMODYNAMI ---
PATIENT:ALISA HOPSON MEDICAL RECORD: [id number] : 55 [id number] ADMISSION DATE: 08/13/19 Generatedon:08/14/201910:05 Patient name: ALISA HOPSON Patient #: [id number] SSN: [id number] : 1955 Date of study: 08/14/2019 Page: Of Hemodynamic Procedure Report Patient Data Patient Demographics Procedure consent was obtained First Name: ALISA Gender: Male Last Name: MARK ANHTONY : 1955 Middle Initial: ZULY Age: 64 year(s) Patient #: [id number] Race: SSN: [id number] Additional ID: [id number] Contact details Address: [address] [place] [address] State: [place] City: [place] Zip code: [address] Past Medical History Allergies: No known allergies Admission Admission Data Admission Date: 08/13/2019 Admission Time: 11:48 Arrival Date: 08/13/2019 Arrival Time: 11:48 Admit Source: Emergency Insurance Payor: Private department health insurance Room #: D.2117 [facility] #: [id number] Height (in.): 70.87 BSA: 1.94 (m2) Height (cm.): 180 BMI: 23.15 (kg/m2) Weight (lbs.): 165.35 Weight (kg.): 75 Lab Results Lab Result Date: 08/14/2019 Lab Result Time: 0:00 Biochemistry Name Units Result Min Max BUN mg/dl 29 --(----)-* 7 18 Creatinine mg/dl 1.7 --(----)-* 0.6 1.3 eGFR ml/min 43 *-(----)-- 90 120 NONAFRICAN CBC Name Units Result Min Max Hemoglobin g/dl 15.9 --(--*-)-- 13.5 17.5 Procedure Procedure Types Cath Procedure Diagnostic Procedure LHC LHC w/Coronaries w/Grafts Sedation Charges Moderate Sedation up to 30 minutes PCI Procedure Coronary Stent Coronary Stent Initial x2 Procedure Description Procedure Date Procedure Date: 08/14/2019 Procedure Start Time: 9:41 Procedure End Time: 9:59 Procedure Staff Name Function Jason Bennett MD Performing Physician Giulia Lomas RT Monitor Dang Ramachandran RT Scrub Shasta Minaya RN Nurse Procedure Data Cath Procedure Fluoroscopy Diagnostic fluoroscopy Total fluoroscopy Time: 5.6 time: 5.6 min min Diagnostic fluoroscopy Total fluoroscopy dose: 582 dose: 582 mGy mGy Contrast Material Contrast Material Type Amount (ml) Isovue 300 100 Entry Location Entry Primary Successful Side Size Upsize Upsize Entry Closure Succes sful Closure Location (Fr) 1 (Fr) 2 (Fr) Remarks Device Remarks Femoral Left 6 Fr Exoseal artery Short Estimated blood loss: 5 ml Diagnostic catheters Device Type Used For End Catheter Placement MULTIPACK Pigtail 5 Fr LV Angiography catheter MULTIPACK JL 4.0 5Fr Left Coronary catheter Angiography MULTIPACK 3DRC 5Fr Multi-vessel catheter Angiography Procedure Complications No complications Procedure Medications Medication Administration Route Dosage Oxygen etCO2 Nasal cannula 2 l/min Lidocaine 2% added to field 20 Heparin Flush Bag added to field 2 bags (1000units/500ml NS) 0.9% NaCl I.V. 100 ml/hr Versed I.V. 2 mg Fentanyl I.V. 50 mcg Versed I.V. 1 mg Fentanyl I.V. 50 mcg Heparin Bolus I.V. 4000 units Fentanyl I.V. 50 mcg Hemodynamics Rest BSA: 1.94 (m2) HGB: 15.9 (g/dl) O2 Consumption: Estimated: 217.11 (ml/min) O2 Co nsumption indexed: Estimated:111.91 (ml/min/m) Heart Rate: 57 (bpm) Pressure Samples Time Site Value (mmHg) Purpose Heart Use Rate(bpm) 9:43 LV 17/16,14 Snapshot 55 Snapshots Pre Cath Intra NCS Post Cath Vital Signs Time Heart Resp SPO2 etCO2 NIBP (mmHg) Rhythm Pain Sedation Rate (ipm) (%) (mmHg) Status Level (bpm) 9:11:33 62 17 97 23.2 154/85(104) NSR 0 (11) 10(A) , No pain 9:15:51 62 12 100 34.4 150/76(109) NSR 0 (11) 10(A) , No pain 9:20:09 57 13 99 39.6 135/70(88) NSR 0 (11) 10(A) , No pain 9:24:19 59 16 100 41.2 131/73(89) NSR 0 (11) 10(A) , No pain 9:28:31 57 17 98 40.4 119/68(83) NSR 0 (11) 10(A) , No pain 9:32:36 59 17 98 39.6 119/69(82) NSR 0 (11) 10(A) , No pain 9:36:46 60 17 97 42.6 117/59(90) NSR 0 (11) 9(A) , No pain 9:40:56 59 16 97 41.9 106/57(78) NSR 0 (11) 9(A) , No pain 9:45:00 64 16 97 42.6 115/59(76) NSR 0 (11) 9(A) , No pain 9:49:06 68 16 97 42.6 113/66(80) NSR 0 (11) 9(A) , No pain 9:54:00 75 16 98 42.6 142/87(106) NSR 0 (11) 9(A) , No pain 9:58:10 76 17 98 42.7 161/87(128) NSR 0 (11) 10(A) , No pain Medications Time Medication Route Dose Verified Delivered Reason Notes Effectiveness by by 9:23:39 Oxygen etCO2 2 Jason Buffie used for Nasal l/min Donald Minaya RN procedure cannula 9:23:45 Lidocaine 2% added 20ml Jason Gomez for local to vial Donald Bennett MD anesthetic field 9:23:50 Heparin Flush added 2 Jason Jason used for Bag to bags Donald Bennett MD procedure (1000units/500ml field NS) 9:23:58 0.9% NaCl I.V. 100 Jason Buffie Per physician ml/hr Donald Minaya RN 9:31:01 Versed I.V. 2 mg Jason Buffie for sedation Donald Minaya RN 9:32:08 Fentanyl I.V. 50 Jason Artisie for sedation mcg Donald Minaya RN 9:42:10 Versed I.V. 1 mg Jason Buffie for sedation Donald Minaya RN 9:42:14 Fentanyl I.V. 50 Jason Vegas for sedation mcg Donald Minaya RN 9:48:34 Heparin Bolus I.V. 4000 Jason Vegas for verifi ed units Donald Minaya RN anticoagulation with dr bennett 9:52:18 Fentanyl I.V. 50 Jason Vegas for sedation mcg Donald Minaya RN Procedure Log Time Note 8:48:26 Diagnostic Cath Status : Elective 8:48:45 Informed consent obtained and on chart 8:50:10 Admit Source: Emergency department 8:50:17 Arrival Date: 08/13/2019 11:48:00 AM 8:50:24 Insurance Payor : Private health insurance 8:50:39 Patient Height : 70.87 inches 8:50:44 Patient Weight : 165.35 lbs 8:51:22 Lab Result : BUN 29 mg/dl 8:51:22 Lab Result : Creatinine 1.7 mg/dl 8:51:22 Lab Result : eGFR NONAFRICAN 43 ml/min 8:51:22 Lab Result : Hemoglobin 15.9 g/dl 8:54:15 ACC Patient presents with Unstable Angina CCS Anginal Class 4--Inability to carry out any physical activity w/o angina. Angina may occur at rest. 8:54:19 Procedure Status Urgent Heart Cath (IP). 8:54:21 Shasta Minaya RN sent for patient. Start room use. 8:54:22 Time tracking: Regular hours (M-F 7:00 - 5:00) 8:54:26 Plan of Care:Hemodynamics will remain stable., Cardiac rhythm will remain stable., Comfort level will be maintained., Respiratory function will remain adequate., Patient/ family verbilizes understanding of procedure., Procedure tolerated without complication., Recovers from procedure without complications.. 9:10:20 Patient received from Med II to CCL 2 Alert and oriented. Tansferred to table in Supine position. 9:10:21 Warm blankets applied, and dom hugger turned on for patient comfort. 9:10:21 Correct patient and procedure confirmed by team. 9:10:22 ECG and BP/O2 sat monitors applied to patient. 9:10:23 Vital chart was started 9:10:24 Baseline sample Acquired. 9:10:27 Rhythm: sinus rhythm 9:10:28 Full Disclosure recording started 9:10:36 H&P Date Dictated: 08/14/2019 New H&P dictated by physician.. 9:10:38 Pre-procedure instructions explained to patient. 9:10:39 Pre-op teaching completed and patient verbalized understanding. 9:10:40 Family unavailable. 9:10:57 Patient NPO since Midnight. 9:10:58 Is the patient allergic to Iodine/contrast media? No. 9:11:00 Was the patient premedicated? Yes 9:11:17 Is patient on blood thinner?Yes 9:11:20 ACC The patient was administered the following blood thiners within the last 24 hours: ACCPlavix 9:11:22 Patient diabetic? No. 9:11:26 Previous problem with sedation/anesthesia? No ? 9:11:30 Snore? No 9:11:31 Sleep apnea? No 9:11:32 Deviated septum? No 9:11:38 Opens mouth fully? Yes 9:11:38 Sticks out tongue? Yes 9:11:40 Airway obstruction? No ? 9:11:45 Dentures? Yes out 9:11:58 Pre procedure: right dorsailis pedis pulse Doppler 9:12:00 Pre procedure: left dorsailis pedis pulse Doppler 9:12:03 Patient pain scale 0/10 ?. 9:12:10 IV patent on arrival in right antecubital with 0.9% NaCl at KVO. 9:12:14 Lab results completed and on chart. 9:12:21 Stress Test: no; N/A ? 9:12:25 Risk of Mortality: 1.4 9:12:29 Risk of blood transfusion: 3.8 9:12:34 Risk of GARCIA: 19.3 9:12:37 Right groin area was prepped with chlora-prep and draped in sterile fashion 9:12:38 Alarms reviewed by R. N. 9:12:38 Sharps counted by scrub and verified by R.N. 9:12:50 3b) 30-44 Moderately reduced kidney function. 9:12:56 Maximum allowable contrast dose (3.7 X eGFR X 0.75)119 ml. 9:13:01 Sedation plan: IV Moderate Sedation Medication:Versed, Fentanyl 9:13:05 Use device set Femoral Dx 9:13:06 ACIST Syringe (51102) opened to sterile field. 9:13:06 Bag Decanter (2002S) opened to sterile field. 9:13:07 Medline Cath Pack ([id number]) opened to sterile field. 9:13:08 ACIST Hand Control (35080) opened to sterile field. 9:13:08 ACIST Manifold (39096) opened to sterile field. 9:13:09 DIAGNOSTIC Multipack 5Fr catheter set (TO1517) opened to sterile field. 9:13:09 Tegaderm 4 x 4 (1626W) opened to sterile field. 9:13:11 EMERALD Guide Wire (727-606) opened to sterile field. 9:23:39 Oxygen 2 l/min etCO2 Nasal cannula was administered by Shasta Minaya RN; used for procedure; Verbal order read back and verified. 9:23:45 Lidocaine 2% 20ml vial added to field was administered by Jason Bennett MD; for local anesthetic; Verbal order read back and verified. 9:23:50 Heparin Flush Bag (1000units/500ml NS) 2 bags added to field was administered by Jason Bennett MD; used for procedure; Verbal order read back and verified. 9:23:58 0.9% NaCl 100 ml/hr I.V. was administered by Shasta Minaya RN; Per physician; Verbal order read back and verified. 9:30:43 Physician arrived 9:30:44 --------ALL STOP TIME OUT------ 9:30:44 Final Timeout: patient, procedure, and site verified with staff and physician. All members of the team are in agreement. 9:30:46 Bilateral groins site verified by team. 9:30:50 Fire Safety Assessment: A--An alcohol-based skin anteseptic being used preoperatively., C--Open oxygen or nitrous oxide is being used., D--An ESU, laser, or fiber-optic light is being used. 9:30:53 Physical assessment completed. ASA score P 2 - A patient with mild systemic disease as per Jason Bennett MD. 9:31:01 Versed 2 mg I.V. was administered by Shasta Minaya RN; for sedation; Verbal order read back and verified. 9:32:08 Fentanyl 50 mcg I.V. was administered by Buffie Minaya RN; for sedation; Verbal order read back and verified. 9:39:18 Procedure started. 9:41:04 Local anesthetic to left femerol artery with Lidocaine 2% by Jason Bennett MD.INITIAL ACCESS ONLY 9:41:49 A 6 Fr Short sheath was inserted into the Left Femoral artery 9:42:00 SHEATH 6FR Zillah (LSR251) opened to sterile field. 9:42:10 Versed 1 mg I.V. was administered by Shasta Minaya RN; for sedation; Verbal order read back and verified. 9:42:14 Fentanyl 50 mcg I.V. was administered by Shasta Minaya RN; for sedation; Verbal order read back and verified. 9:42:31 A MULTIPACK Pigtail 5 Fr catheter was advanced over the wire and used for LV Angiography. 9:43:09 LV hemodynamics recorded. 9:43:10 LV gram done using CASPER 9:43:13 Injector settings: Ml/sec: 5, Volume: 15, 9:43:19 EF : 60 % 9:43:27 Catheter removed. 9:43:32 A MULTIPACK JL 4.0 5Fr catheter was advanced over the wire and used for Left Coronary Angiography. 9:44:43 LCA angiography performed. 9:44:46 Injector settings: Ml/sec: 3, Volume: 6, 9:45:19 Catheter removed. 9:45:46 A MULTIPACK 3DRC 5Fr catheter was advanced over the wire and used for Multi-vessel Angiography. 9:46:14 INFLATOR Merit BasixCompak (VA4374) opened to sterile field. 9:46:15 GUIDE 6FR XBC 3 ([id number]) opened to sterile field. 9:46:16 CHOICE PT Extra Support 182cm wire ([id number]) opened to sterile field. 9:46:24 JOHN angiography performed. 9:47:01 RCA angiography performed. 9:47:03 Injector settings: Ml/sec: 3, Volume: 6, 9:48:00 Catheter removed. 9:48:01 Proceeding to intervention. 9:48:08 6 Fr xbc 3 guide catheter was inserted over the wire 9:48:34 Heparin Bolus 4000 units I.V. was administered by Shasta Minaya RN; for anticoagulation; verified with dr bennett Verbal order read back and verified. 9:48:44 choice pt wire advanced. 9:48:47 Wire advanced across lesion. 9:50:29 ACC Pre-intervention [place] Flow is 3. 9:50:35 Pre PCI Site: [place] OM1 has 95% stenosis. 9:50:36 Place stent Inflation Number: 1 A JAHAIRA RX 2.5 x 38 stent ([id number]) was prepped and advanced across the 1st [place] 95. The stent was deployed at 19 TARAH for 0:10 (min:sec) 0. 9:51:03 Inflation number: 2 The stent balloon was then re-inflated across the 1st Ob [place]iss[place] 0 to 9 TARAH for 0:10 (min:sec) . 9:51:15 Post PCI Site: [place] OM1 has 0% stenosis. 9:51:19 ACC Post-intervention [place] Flow is 3. 9:51:24 Stent catheter was removed intact over wire. 9:51:25 Wire removed. 9:51:26 Guide catheter removed. 9:51:37 GUIDE 6FR 3DRC SH catheter ([id number]) opened to sterile field. 9:52:18 Fentanyl 50 mcg I.V. was administered by Shasta Minaya RN; for sedation; Verbal order read back and verified. 9:52:22 6 Fr 3drc sh guide catheter was inserted over the wire 9:52:26 choice pt wire advanced. 9:53:28 Wire advanced across lesion. 9:53:55 ACC Pre-intervention [place] Flow is 3. 9:54:09 Pre PCI Site: [place] mRCA has 95% stenosis. 9:55:11 Place stent Inflation Number: 1 A JAHAIRA RX 2.25 x 15 stent ([id number]) was prepped and advanced across the Mid RCA 90. The stent was deployed at 13 TARAH for 0:10 (min:sec) 0. 9:56:12 Post PCI Site: [place] mRCA has 0% stenosis. 9:56:12 ACC Post-intervention [place] Flow is 3. 9:56:13 Stent catheter was removed intact over wire. 9:56:14 Wire removed. 9:56:14 Guide catheter removed. 9:56:38 EXOSEAL 6Fr (EX600) opened to sterile field. 9:56:48 ACT drawn and resulted at 269 seconds. (normal therapeutic range 180-240 seconds). 9:56:48 Sheath removed intact; hemostasis achieved with Exoseal to the Left Femoral artery. 9:56:56 Procedure ended.(Physican Out) 9:58:01 Fluoroscopy time 05.60 minutes. 9:58:06 Flurop Dose total: 582 9:58:06 Fluoroscopy dose: 582 mGy 9:58:16 Dose Area Product 84667 mGy/cm. 9:58:21 Contrast amount:Isovue 300 100ml. 9:58:23 Maximum allowable dose exceeded? No. 9:58:24 Sharps counted by scrub and verified by R.N. 9:58:26 Insertion/operative site no bleeding no hematoma. 9:58:29 Post-op/insertion site Left Femoral artery dressed using a 4 x 4 and Tegaderm. 9:58:30 Post Procedure Pulses reassessed and unchanged 9:58:33 Post procedure rhythm: unchanged. 9:58:36 Estimated blood loss: 5 ml 9:58:37 Post procedure instruction explained to patient.Patient verbalizes understanding. 9:58:38 Patient needs reinforcement of post procedure teaching. 9:59:21 Procedure type changed to Cath procedure, Diagnostic procedure, LHC, LHC w/Coronaries w/Grafts, Sedation Charges, Moderate Sedation up to 30 minutes, PCI procedure, Coronary Stent, Coronary Stent Initial x2 9:59:23 Procedure and supply charges have been captured, reviewed, submitted and are correct. 9:59:28 Procedure Complication : No complications 9:59:31 Vital chart was stopped 9:59:34 [facility] Findings: MVD- PCI performed (see procedure note) 9:59:36 Operative report dictated upon procedure completion. 9:59:36 See physician's report for complete and final results. 9:59:39 Report given to Pre/Post Procedure Room. 9:59:41 Patient transfered to Pre/Post Procedure Room with Stretcher. 9:59:43 Procedure ended. 9:59:43 Full Disclosure recording stopped 9:59:53 ACC-PCI Only Patient was given prescriptions, or instructed by Jason Bennett MD to start/continue the following medications upon discharge: Plavix 9:59:54 End room use (Document Last) Intervention Summary Intervention Notes Time ActionType Lesion and Equipment Used Action# Pressure Duration Attributes 9:50:36 Place stent 1st [place] JAHAIRA RX 2.5 x 1 19 00:10 38 stent ([id number]) 9:51:03 Reinflate 1st [place] JAHAIRA RX 2.5 x 2 9 00:10 stent 38 stent balloon ([id number]) 9:55:11 Place stent Mid RCA JAHAIRA RX 2.25 x 1 13 00:10 15 stent ([id number]) Device Usage Item Name Manufacture Quantity Catalog Number Hospital Part Current M inimal Lot# / Charge Number Stock Stock Serial# Code ACIST Syringe Acist 1 06264 403921 802227 728420 2 0 (36918) Medical Systems Inc Bag Decanter Microtek 1 830265 70142 597492 5 () Medical Inc. Medline Cath Medline 1 [id number] 209564 13320 297490 5 Pack ([id number]) ACIST Hand Acist 1 85976 271729 856798 982862 5 Control Medical (09914) Systems Inc ACIST Manifold Acist 1 46309 577715 485953 663402 5 (51780) Medical Systems Inc DIAGNOSTIC Cardinal 1 XC8837 253581 85291 449371 3 0 Multipack 5Fr Health catheter set (RW1850) Tegaderm 4 x 4 3M 1 1626W 587658 108133 216670 5 (1626W) EMERALD Guide Cardinal 1 502-455 455581 479369 292082 5 Wire (502-455) Health SHEATH 6FR Terumo 1 PNY399 779662 396592 809862 4 0 Zillah (BWI716) MULTIPACK Cardinal 1 969365 5 Pigtail 5 Fr Health catheter MULTIPACK JL Cardinal 1 637658 5 4.0 5Fr Health catheter MULTIPACK 3DRC Cardinal 1 528255 5 5Fr catheter Health INFLATOR Merit Merit 1 AK2111 777710 875371 997774 1 5 Adsit [employer] Technology Medical (BW0312) GUIDE 6FR XBC Cardinal 1 15114328 356658 91686 935091 5 3 ([id number]) Health CHOICE PT [place] 1 [id number] 180939 285854 388256 5 Extra Support Scientific 182cm wire ([id number]) JAHAIRA RX 2.5 x Medtronic 1 [id number] 477954 0800414 397894 5 [id number] 38 stent ([id number]) GUIDE 6FR 3DRC Medtronic 1 [id number] 737062 034853 679911 1 SH catheter ([id number]) JAHAIRA RX 2.25 x Medtronic 1 [id number] 936980 0079451 384835 5 [id number] 15 stent ([id number]) EXOSEAL 6Fr Cardinal 1 EX600 071938 437640 934782 1 0 (EX600) Health Signature Audit [place] Stage Time Signature Unsigned Intra-Procedure 08/14/2019 Giulia Lomas 10:04:39 AM RT(R) Intra-Procedure 08/14/2019 Shasta Minaya RN 10:05:22 AM Intra-Procedure 08/14/2019 Jason Bennett 10:05:53 AM Signatures Performing Physician : Signature : Jason Bennett MD Date : Time : Monitor : Giulia Lomas RT Signature : Date : Time : Nurse : Shasta Minaya RN Signature : Date : Time : [place] [id number] [facility] [place] [address]
[~2019-08-13 10:29] MED LIST changes: +ALBUTEROL SULF8.5 GM INH; +ZPAK PO
[2019-08-13] MEDS ORDERED: HYDROCODON-ACE1 EAC7 PO (10:37)
[2019-08-13] MEDS ORDERED: FISH OIL 1,0001 CA1 PO (10:37)
[2019-08-13 10:59] LABS: HEMATOCRIT 47.7 % (42.0-54.0); HEMOGLOBIN 15.9 g/dL (13.5-17.5); MCH 29.3 pg (26.0-34.0); MCHC 33.3 g/dL (31.0-37.0); MEAN PLATELET VOLUME 11.3 fL (7.4-10.4); PLATELET COUNT 240 10x3/uL (130-400); RBC 5.42 10x6/uL (4.20-6.10); RDW 13.7 % (11.5-14.5); WBC 24.9 10x3/uL (4.8-10.8)
[2019-08-13 11:08] LABS: CALC OSMOLALITY 281 mosm/kg (275-300); CHLORIDE - SERUM 103 mmol/L (98-107); CREATININE - SERUM 1.7 mg/dL (0.6-1.3); GLUCOSE 98 mg/dL (74-106); POTASSIUM - SERUM 4.6 mmol/L (3.5-5.1); SODIUM 138 mmol/L (136-145); UREA NITROGEN 29 mg/dL (7-18); eGFR NON AFRICAN AMERICAN 43 mL/min (90-120)
[2019-08-13 11:10] LABS: INR 1.01 (0.85-1.17); PROTIME 12.8 SECONDS (11.6-15.0)
[2019-08-13 11:25] LABS: ALBUMIN 3.5 g/dL (3.4-5.0); ALKALINE PHOSPHATASE 94 U/L (46-116); ALT (SGPT) 21 U/L (10-68); BILIRUBIN - TOTAL 0.25 mg/dL (0.2-1.3); CKMB 4.2 U/L (0.0-3.6); CREATINE KINASE 136 UL (21-232); MAGNESIUM - SERUM 2.3 mg/dL (1.8-2.4); PROTEIN - SERUM 7.6 g/dL (6.4-8.2); TROPONIN-I 0.041 ng/mL (0.000-0.060)
[2019-08-13 11:33] LABS: LYMPHOCYTES 14 % (15-50); MONOCYTES 1 % (2-11); NEUTROPHILS 85 % (40-80); PLATELET ESTIMATE NORMAL
--- NOTE | 2019-08-13 11:41 | HP ---
PATIENT: ALISA HOPSON MEDICAL RECORD: [id number] ACCOUNT: [id number] LOCATION:[facility] : 55 ADMISSION DATE: 08/13/19 PCP: AAYUSH ROSE [facility] HISTORY AND PHYSICAL EXAMINATION DIAGNOSES: 1. Unstable angina. 2. Coronary artery disease. 3. Previous coronary bypass graft surgery. 4. Previous cardiac stenting. 5. Hypertension. 6. Hyperlipidemia. 7. Smoking. HISTORY OF PRESENT ILLNESS: Mr. Hopson presents with increasing episodes of chest pain and chest discomfort, approximately 2 weeks of classic anginal discomfort, a heavy aching sensation across the anterior chest, radiation to his jaw, associated with extreme shortness of breath as well. He does have a history of bypass surgery. His last cardiac catheterization was in March of 2017. At that time, he had PTCA and stent with a bare-metal stent. The chest pain has dramatically worsened and escalated in an unstable fashion in the past 2 weeks. He is now having rest pain and it kept him awake all night last night. He does continue to smoke. He has COPD. PHYSICAL EXAMINATION: CONSTITUTIONAL/GENERAL APPEARANCE: Well nourished, well developed, appears stated age. EYES: Lids and conjunctivae noninjected. No discharge. No pallor. ENT: Lips within normal limit. No cyanosis. No pallor. NECK: Carotid arteries, bilateral normal upstroke. No bruits. No thrills. No jugular venous pressure or distention. CERVICAL LYMPH NODES: Nontender. Nonenlarged. THYROID: Not enlarged. No nodules. CARDIOVASCULAR: Precordial exam, nondisplaced. No heaves or pericardial thrills. Rate and rhythm, regular. Heart sounds, normal S1, normal S2. No S3, no gallop, no rub. Systolic murmur, not heard. Diastolic murmur, not heard. RESPIRATORY: Respiratory effort, unlabored. Normal curvature. No thoracic deformity. No chest wall tenderness. Percussion, resonant. Auscultation, clear. No wheezes, no rales, no rhonchi. ABDOMEN: Soft, nondistended, nontender. No abdominal pain, no vomiting and normal appetite. MUSCULOSKELETAL: No joint tenderness, normal gait, normal tone. SKIN: Warm and dry. OVERALL IMPRESSION: Unstable angina. At this time, we will optimize medical management with beta blockade as well as the addition of nitrates to optimize his heart rate and blood pressure. If he continues to have pain, would proceed with coronary angiography. TRANSINT:[id number] Voice Confirmation ID: [id number] DOCUMENT ID: [id number] HISTORY AND PHYSICAL [id number] ALISA HOPSON JEFFREY MD at 1141 CC: [id number] DICTATION DATE: 08/13/19 1113 MORTGAGE PROCESSING MANAGER: 08/13/19 1137 [place] [id number] [place] [id number]
[2019-08-13 12:00] VITALS: BP 165/86
--- NOTE | 2019-08-13 12:32 | NUR ---
RECEIVED PT TO ROOM 2116 VIA WHEELCHAIR, PT WAS ABLE TO AMBULATE FROM WHEELCHAIR TO BED WITH STEADY GATE, PT A/O X4, RESP EVEN AND NONLABORED ON RA. ORIENTED PT TO ROOM AND CALL LIGHT, WILL ASSESS PT AND START PLAN OF CARE.
[2019-08-13 12:38] VITALS: Ht 180.3 cm; Wt 75.0 kg
--- NOTE | 2019-08-13 14:44 | MORECARE ---
CASE MANAGEMENT DISCHARGE SUMMARY PATIENT: ALISA HOPSON UNIT: [id number] ADM DATE: 08/13/19 AGE: 64 : 55 SEX: M ROOM/BED: D.2117 AUTHOR: ANA GARRISON PHYSICIAN: REFERRING PHYSICIAN: BRIDGETTE BRAR MD DATE OF SERVICE: 08/13/19 Discharge Plan Patient Name: ALISA HOPSON [facility] [facility] 1955 Planned Disposition: Anticipated Discharge Date: Discharge Date: Expected LOS: Initial Reviewer: [email or web address] Initial Review Date: 08/13/2019 Generated: 08/13/19 3:44 pm Coverage Notice Reviewer: [email or web address] - Reba Zuleta Notice Issued Date-Time: 08/13/2019 11:55 Notice Type: Medicare Outpatient Observation Notice Notice Delivered To: Family Member Relationship to Patient: Daughter Grips Name: Breanne Torres. Delivery Method: HAND - Hand Delivered Lorie Days: Prior Verbal Notification: Recipient Understood Notice: Yes Recipient Signature: Yes Med Rec Note Co-signed by Attending: Coverage Notice Comment: SENA delivered to and signed by daughter, Breanne Torres. Patient Name: ALISA HOPSON Page [phone] at 1444 All edits/amendments must be made on the electronic document DICTATION DATE: 08/13/19 144 RUG INSPECTOR HELPER: CAIR 08/13/19 1444 RPT#: [id number] DC DATE: STATUS: ADM IN [facility] [address] [place] [address] END OF REPORT
[2019-08-13 16:00] VITALS: BP 140/74
--- NOTE | 2019-08-13 19:14 | NUR ---
RECEIVED BEDSIDE REPORT. PATIENT IS ALERT AND ORIENTED, PATIENT STANDING UP NEXT TO BED. RESPIRATIONS ARE EVEN AND UNLABORED. NO S/S OF DISTRESS. NO C/O PAIN. NEEDS MET. FAMILY AT BEDSIDE. CALL LIGHT WITHIN REACH. WILL CPOC.
[2019-08-13 21:04] VITALS: BP 117/67
[2019-08-14 00:24] VITALS: BP 109/85
[2019-08-14 04:30] VITALS: BP 113/62
--- NOTE | 2019-08-14 09:02 | NUR ---
PT TO WIRE COILER VIA BED, NAD NOTED.
--- NOTE | 2019-08-14 10:24 | NUR ---
RECEIVED PT BACK TO ROOM 2116. PT STILL DROWSY BUT EASILY AROUSES TO VOICE. DRESSING TO LT GROIN CDI, NO SIGNS OF BLEEDING OR HEMATOMA. VITAL SIGNS STABLE, PLACED PT ON FREQUENT VITAL SIGNS. PT DENIES ANY NEEDS AT THIS TIME. CALL LIGHT IN REACH, NAD NOTED.
--- NOTE | 2019-08-14 10:39 | NUR ---
I CALLED [facility] AND SPOKE WITH CHIDI, PHARMACIST FOR SCRIPTS OF PLAVIX 75 MG AND PRAVACHOL 20 MG. EACH ONE ONE DAILY WITH #30 AND 6 REFILLS.
[2019-08-14] MEDS ORDERED: PRAVASTATIN SOD10 MG PO (10:45)
--- NOTE | 2019-08-14 11:41 | NUR ---
CALLED THE [facility] AND SPOKE WITH JOYCELYN, ASKED JOYCELYN TO ASK DR. BRAR TO SEE IF HE CAN ORDER SOMETHING TO BRING PT'S BP DOWN. LAST BP WAS 168/98.
--- NOTE | 2019-08-14 11:58 | NUR ---
NO CHANGES TO LT GROIN FROM PREVIOUS ASSESSMENT. PT RESTING COMFORTABLY, WANTS TO GET FLU SHOT BEFORE DISCHARGE.
[2019-08-14 13:36] VITALS: BP 118/72
--- NOTE | 2019-08-14 13:38 | NUR ---
PT RESTING COMFORTABLY WITH EYES CLOSED, NO CHANGES TO LT GROIN NOTED. CALL LIGHT IN REACH, BEDSIDE RAILS X2, NAD NOTED, WILL CONTINUE TO MONITOR.
--- NOTE | 2019-08-14 15:03 | NUR ---
BEDREST OVER, LT GROIN CDI, NO CHANGES FROM PREVIOUS ASSESSMENT. PT DENIES ANY NEEDS AT THIS TIME. CALL LIGHT IN REACH, NAD NOTED, WILL CONTINUE TO MONITOR.
--- NOTE | 2019-08-14 15:42 | NUR ---
PROVIDED VERBAL AND WRITTEN DISCHARGE TEACHING TO PT, WHO VERBALIZED UNDERSTANDING REGARDING TEACHING. FAMILY WILL BE HERE TO PICK PT UP AROUND 1700. PT WILL NOTIFY NURSE WHEN READY FOR WHEELCHAIR.
--- NOTE | 2019-08-14 17:05 | NUR ---
RT FA IV REMOVED WITH CATHETER TIP INTACT. HEART MONITOR REMOVED AND TAKEN TO FUR DRESSER. PT WILL NOTIFY NURSE WHEN READY FOR WHEELCHAIR.
--- NOTE | 2019-08-14 18:02 | NUR ---
PT LEFT UNIT VIA WHEELCHAIR, WITH ALL BELONGINGS, ACCOMPANIED BY SON IN LAW. NAD NOTED.
--- NOTE | 2019-08-15 07:10 | MORECARE ---
CASE MANAGEMENT DISCHARGE SUMMARY PATIENT: ALISA HOPSON UNIT: [id number] ADM DATE: 08/13/19 AGE: 64 : 55 SEX: M ROOM/BED: D.2117 AUTHOR: ANA GRARISON PHYSICIAN: REFERRING PHYSICIAN: BRIDGETTE BRAR MD DATE OF SERVICE: 08/15/19 Discharge Plan Patient Name: ALISA HOPSON [facility] [facility] 1955 Planned Disposition: Home Anticipated Discharge Date: 08/14/19 Discharge Date: 08/14/2019 Expected LOS: 1 Initial Reviewer: [email or web address] Initial Review Date: 08/13/2019 Generated: 08/15/19 8:09 am Coverage Notice Reviewer: [email or web address] - Reba Zuleta Notice Issued Date-Time: 08/13/2019 11:55 Notice Type: Medicare Outpatient Observation Notice Notice Delivered To: Family Member Relationship to Patient: Daughter Order Builder Loader Name: Breanne Torres. Delivery Method: HAND - Hand Delivered Lorie Days: Prior Verbal Notification: Recipient Understood Notice: Yes Recipient Signature: Yes Med Rec Note Co-signed by Attending: Coverage Notice Comment: SENA delivered to and signed by daughterBreanne. Original to patient and copy to chart. Last DP export: 08/13/19 1:44 Patient Name: ALISA HOPSON Page [phone] at 0710 All edits/amendments must be made on the electronic document DICTATION DATE: 08/15/19708 GUARD SERGEANT: DM 08/15/19708 RPT#: [id number] DC DATE:08/14/19 STATUS: DIS IN [facility] [address] [place] [address] END OF REPORT
--- NOTE | 2019-08-21 14:07 | DS ---
PATIENT:ALISA HOPSON :55 MEDICAL RECORD: [id number] DISCHARGE SUMMARY ADMISSION DATE: 08/13/19 DISCHARGE DATE: 08/14/19 DISCHARGE DIAGNOSES: 1. Angina. 2. Coronary artery disease. 3. Percutaneous transluminal coronary angioplasty stent of left circumflex and right coronary artery this admission. 4. Chronic obstructive pulmonary disease. 5. Smoking history. 6. Hyperlipidemia. HOSPITAL COURSE: Mr. Hopson presents with anginal symptomatology, found to have critical disease of the left circumflex and RCA, underwent successful PTCA stent of both territories, was discharged home with the addition of aspirin, Plavix, Pravachol to his medical regimen. Will follow up with [facility] in 1 month. TRANSINT:[id number] Voice Confirmation ID: [id number] DOCUMENT ID: [id number] BRIDGETTE BRAR MD at 1407 CC: [id number] DICTATION DATE: 08/14/19 1013 SCREW DRIVER OPERATOR: 08/15/19 0121 DEP CLI 08/14/19 [place] [id number] [place] [address]
--- NOTE | 2019-08-21 14:07 | OP ---
PATIENT NAME: ALISA HOPSON MEDICAL RECORD: [id number] :55 LOCATION:D.OPS ADMISSION DATE: SURGEON: BRIDGETTE BRAR MD DATE OF OPERATION: 08/14/2019 PROCEDURE: 1. PTCA stent left circumflex. 2. PTCA stent RCA. 3. JOHN angiography. 4. Left heart catheterization. 5. Selective coronary angiography. 6. Left ventriculogram. INDICATION: Angina and coronary artery disease. PROCEDURE IN DETAIL: After informed consent was obtained and after a detailed description of risks, benefits as well as alternative therapies, the patient elected to proceed with angiogram and angioplasty. The left femoral area was prepped and draped in normal sterile fashion. Left femoral artery was cannulated via modified Seldinger technique with placement of 6-Serbian sheath. All catheters exchanged through this sheath. FINDINGS: Left ventriculogram was performed in a standard 30-degree CASPER view, reveals good cardiac wall motion, ejection fraction estimated 60%. SELECTIVE CORONARY ANGIOGRAPHY: 1. Left main is with no significant angiographic disease. 2. Left anterior descending is totally occluded. 3. JOHN to the LAD is widely patent. Distal LAD is widely patent. 4. Left circumflex has a previously placed stent with 95% in-stent restenosis. 5. The right coronary artery has a new 90% stenosis compared to previous angiography. PTCA STENT OF THE LEFT CIRCUMFLEX: The stent used was a 2.5 x 38 mm Gianluca. Result was 0% residual stenosis. PTCA STENT OF THE RCA: The stent used was a 2.25 x 15 mm Gianluca. Result was 0% residual stenosis. OVERALL IMPRESSION: Successful percutaneous transluminal coronary angioplasty stent of the left circumflex and right coronary artery, both going from 90% to 95% initial stenosis to 0% residual. TRANSINT:[id number] Voice Confirmation ID: [id number] DOCUMENT ID: [id number] BRIDGETTE BRAR MD at 1407 CC: [id number] DICTATION DATE: 08/14/19 1013 RANCH HAND LIVESTOCK: 08/15/19 0120 DEP CLI 08/14/19 [place] [address]
== END 2019-08-14 18:03 | disposition home or self-care (01) ==
LOC: OBSVTIME → D.ER 10:29 → D.OPS 10:29 → D.ER 11:48 → D.M2 11:48 → OBSVTIME 11:50 → D.ER 12:18 → EDSTATUS 08-14 08:00 → D.M2 08-14 18:03 → D.OPS 08-14 18:03
PROVIDERS: Family Medicine; ATTEND Internal Medicine Interventional Cardiology
DX: I25.110 Atherosclerotic heart disease of native coronary artery with unstable angina pectoris (principal); J44.9 Chronic obstructive pulmonary disease, unspecified; E78.5 Hyperlipidemia, unspecified
CPT/HCPCS: C9600 ×2; 93459

== ENCOUNTER 2019-10-01 21:24 | Inpatient (IN) | payer MEDICARE, OTHER ==
[~2019-10-01] VITALS: Ht 180.3 cm; Wt 73.5 kg
[~2019-10-01 21:24] MED LIST changes: +FISH OIL 1,0001 CA1 PO; +HYDROCODON-ACE1 EAC7 PO; +PRAVASTATIN SOD10 MG PO
[2019-10-01 21:45] LABS: BASOPHILS 0.3 % (0-2); EOSINOPHILS 4.6 % (0-7); HEMATOCRIT 52.5 % (42.0-54.0); IMMATURE GRANULOCYTES 0.3 % (0-5); LYMPHOCYTES 33.6 % (15-50); MCHC 32.4 g/dL (31.0-37.0); MCV 89.6 fL (80.0-100.0); MEAN PLATELET VOLUME 11.6 fL (7.4-10.4); MONOCYTES 7.3 % (2-11); NEUTROPHILS 53.9 % (40-80); PLATELET COUNT 227 10x3/uL (130-400); RBC 5.86 10x6/uL (4.20-6.10); RDW 13.3 % (11.5-14.5); WBC 12.4 10x3/uL (4.8-10.8)
[2019-10-01 21:56] LABS: CALC OSMOLALITY 278 mosm/kg (275-300); CALCIUM 8.6 mg/dL (8.5-10.1); CARBON DIOXIDE 30.6 mmol/L (21.0-32.0); CHLORIDE - SERUM 103 mmol/L (98-107); CREATININE - SERUM 1.7 mg/dL (0.6-1.3); GLUCOSE 90 mg/dL (74-106); INR 0.99 (0.85-1.17); POTASSIUM - SERUM 4.4 mmol/L (3.5-5.1); PROTIME 12.6 SECONDS (11.6-15.0); SODIUM 138 mmol/L (136-145); UREA NITROGEN 20 mg/dL (7-18); eGFR NON AFRICAN AMERICAN 43 mL/min (90-120)
[2019-10-01 21:57] LABS: APTT 34.9 SECONDS (22.8-39.4)
[2019-10-01 22:13] LABS: ALBUMIN 3.5 g/dL (3.4-5.0); ALKALINE PHOSPHATASE 98 U/L (46-116); ALT (SGPT) 21 U/L (10-68); BILIRUBIN - TOTAL 0.31 mg/dL (0.2-1.3); CREATINE KINASE 41 UL (21-232); MAGNESIUM - SERUM 2.1 mg/dL (1.8-2.4); THYROID STIMULATING HORMONE 2.39 uIU/mL (0.36-3.74); TROPONIN-I < 0.017 ng/mL (0.000-0.060)
--- NOTE | 2019-10-02 | NUR ---
PT BROUGHT TO FLOOR VIA WHEELCHAIR FROM MRI. AOX4, SON IN LAW AT BEDSIDE. ASSESSMENT COMPLETED. BILAT 20G IV TO AC. HARD OF HEARING, FOLLOWS COMMANDS. NO WEAKNESS OR NUMBNESS AT THIS TIME. UA COLLECTED. CALLED TELE FOR MONITOR, PT WAS PLACED ON WAITING LIST. IV RIGHT AC INFUSING NS @ 125. DENIES OTHER NEEDS.CL IN REACH, WILL CTM
[2019-10-02 00:59] VITALS: BP 185/85
[2019-10-02 01:00] LABS: APPEARANCE CLEAR (CLEAR); BILIRUBIN NEGATIVE (NEGATIVE); COLOR YELLOW (YELLOW); GLUCOSE NEGATIVE (NEGATIVE); KETONE NEGATIVE (NEGATIVE); NITRITE NEGATIVE (NEGATIVE); PROTEIN 3+ mg/dL (NEGATIVE); UROBILINOGEN NORMAL (NORMAL)
[2019-10-02 01:01] LABS: BACTERIA NONE SEEN /hpf (NEGATIVE); EPITHELIAL CELLS 0-5 /hpf (0-5); RED CELLS - URINE 0-5 /hpf (0-5); WHITE CELLS - URINE 0-5 /hpf (NEGATIVE)
[2019-10-02 01:06] VITALS: BMI 22.6
--- NOTE | 2019-10-02 04:00 | NUR ---
PT CALLED THIS NURSE TO ROOM STATING HIS MOUTH WAS NUMB AGAIN AND HIS LEFT FINGERTIPS AND LEFT TOES WERE NUMB. VSS. NO FACIAL DROOPING. BILAT HAND REAR LOAD TRUCK DRIVER STRONG, EQUAL. NO WEAKNESS NOTED. CALLED MEENA HILL APN TO UPDATE ON PT STATUS, STATED TO CONTINUE MONITOR PT WITH NEURO CHECKS
[2019-10-02 04:42] LABS: BASOPHILS 0.3 % (0-2); HEMATOCRIT 46.8 % (42.0-54.0); HEMOGLOBIN 15.1 g/dL (13.5-17.5); IMMATURE GRANULOCYTES 0.3 % (0-5); LYMPHOCYTES 33.4 % (15-50); MCH 28.7 pg (26.0-34.0); MCHC 32.3 g/dL (31.0-37.0); MEAN PLATELET VOLUME 11.7 fL (7.4-10.4); MONOCYTES 6.1 % (2-11); NEUTROPHILS 55.9 % (40-80); PLATELET COUNT 201 10x3/uL (130-400); RBC 5.26 10x6/uL (4.20-6.10); RDW 13.4 % (11.5-14.5); WBC 11.9 10x3/uL (4.8-10.8)
[2019-10-02 05:19] LABS: ALBUMIN 2.8 g/dL (3.4-5.0); ALKALINE PHOSPHATASE 77 U/L (46-116); ALT (SGPT) 16 U/L (10-68); BILIRUBIN - TOTAL 0.23 mg/dL (0.2-1.3); CALC OSMOLALITY 277 mosm/kg (275-300); CALCIUM 7.9 mg/dL (8.5-10.1); CARBON DIOXIDE 30.2 mmol/L (21.0-32.0); CHLORIDE - SERUM 105 mmol/L (98-107); CKMB 1.7 U/L (0.0-3.6); CREATINE KINASE 32 UL (21-232); CREATININE - SERUM 1.5 mg/dL (0.6-1.3); GLUCOSE 107 mg/dL (74-106); MAGNESIUM - SERUM 2.1 mg/dL (1.8-2.4); POTASSIUM - SERUM 4.3 mmol/L (3.5-5.1); PRO BNP 492 pg/mL (0-125); PROTEIN - SERUM 6.4 g/dL (6.4-8.2); SODIUM 138 mmol/L (136-145); UREA NITROGEN 19 mg/dL (7-18); eGFR NON AFRICAN AMERICAN 50 mL/min (90-120)
[2019-10-02 05:27] LABS: TROPONIN-I < 0.017 ng/mL (0.000-0.060)
[2019-10-02 05:34] VITALS: BP 141/76
--- NOTE | 2019-10-02 07:05 | NUR ---
PT RESTING IN BED WITH EYES OPEN. NO ACUTE S/S OF DISTRESS. NO C/O AT THIS TIME. PT HAS BI-LAT AC, R NORMAL SALINE @ 125. IV SITES ARE PATENT WITHOUT REDNESS OR SWELLING. PT IS NPO UNTIL SPEECH EVAL IS DONE. PT IS QAG[place] TAY[place]. PT SAYS THAT "MY LIPS ARE STILL TINGLIY", BUT HIS MOUTH DOESN'T FEEL NUMB ANYMORE. CALL LIGHT IN PLACE. WILL CONTINUE TO MONITOR.
[2019-10-02 07:57] LABS: CHOL - HDL RATIO 7.7 ratio (2.3-4.9)
[2019-10-02 08:49] VITALS: BP 136/77
[2019-10-02 09:57] LABS: CKMB 1.8 U/L (0.0-3.6); CREATINE KINASE 41 UL (21-232); TROPONIN-I < 0.017 ng/mL (0.000-0.060)
--- NOTE | 2019-10-02 10:01 | NUR ---
Rehab Prescreening Consult recieved and the chart has been reviewed. He is [employer] and will require a preauth. He will need a PT and OT eval. Discussed with the XAVIER Kulkarni. Aster Swan RN Clinical Liaison, Rehab
--- NOTE | 2019-10-02 10:01 | NUR ---
PT STILL COMPLAINING ABOUT LIPS BEING TINGLY, BUT MOUTH IS SYMETRICAL WITH NO DROOPING PRESENT.
[2019-10-02 11:18] VITALS: Ht 180.3 cm; Wt 73.5 kg
[2019-10-02 12:46] VITALS: BP 123/76
--- NOTE | 2019-10-02 14:14 | NUR ---
PT IS COMPLAINING OF DIZZINESS THAT STEMS FROM HIS EYES WHEN HE STANDS UP. PT STATES, "ITS LIKE VERTIGO". NO DROOPING OF THE FACE NOTED, NOR C/O OF "TINGLY NUMBNESS" NOTED AT THIS TIME.
[2019-10-02 15:48] LABS: UDS - AMPHET NEGATIVE QUAL (NEGATIVE); UDS - BARB NEGATIVE QUAL (NEGATIVE); UDS - BENZO NEGATIVE QUAL (NEGATIVE); UDS - COCAINE NEGATIVE QUAL (NEGATIVE); UDS - OPIATE POSITIVE QUAL (NEGATIVE); UDS - PCP NEGATIVE QUAL (NEGATIVE); UDS - THC NEGATIVE QUAL (NEGATIVE)
[2019-10-02 16:12] LABS: CKMB 2.2 U/L (0.0-3.6); CREATINE KINASE 34 UL (21-232)
[2019-10-02 16:22] LABS: TROPONIN-I < 0.017 ng/mL (0.000-0.060)
[2019-10-02 17:03] VITALS: BP 133/71
--- NOTE | 2019-10-02 19:35 | NUR ---
I have reviewed this patient and I concur with the Shift Assessment completed by the Licensed Practical Nurse today this shift.
--- NOTE | 2019-10-02 19:58 | NUR ---
PATIENT LYING DOWN IN BED. PATIENT REQUESTS A CUP OF COFFEE AND SAYS HE HAS NO FURTHER NEEDS AT THIS TIME. IV IN R AC NS @125, NO REDNESS OR SWELLING. ROOM AIR. BED RAILS X2. CALL LIGHT AND BEDSIDE TABLE WITHIN REACH.
[2019-10-02 20:00] VITALS: BP 137/76
[2019-10-03] VITALS: BP 149/80
[2019-10-03 04:00] VITALS: BP 155/82
[2019-10-03 06:30] LABS: BASOPHILS 0.2 % (0-2); EOSINOPHILS 4.6 % (0-7); HEMATOCRIT 41.7 % (42.0-54.0); HEMOGLOBIN 13.1 g/dL (13.5-17.5); IMMATURE GRANULOCYTES 0.2 % (0-5); LYMPHOCYTES 38.3 % (15-50); MCH 28.5 pg (26.0-34.0); MCHC 31.4 g/dL (31.0-37.0); MCV 90.7 fL (80.0-100.0); MEAN PLATELET VOLUME 11.8 fL (7.4-10.4); MONOCYTES 6.9 % (2-11); NEUTROPHILS 49.8 % (40-80); PLATELET COUNT 170 10x3/uL (130-400); RDW 13.5 % (11.5-14.5)
[2019-10-03 06:49] LABS: WBC 8.9 10x3/uL (4.8-10.8)
[2019-10-03 06:53] LABS: ANION GAP 11.2 mmol/L (8-16); CALCIUM 7.3 mg/dL (8.5-10.1); CARBON DIOXIDE 26.1 mmol/L (21.0-32.0); CREATININE - SERUM 1.4 mg/dL (0.6-1.3); MAGNESIUM - SERUM 1.7 mg/dL (1.8-2.4); PHOSPHOROUS 3.4 mg/dL (2.5-4.9); POTASSIUM - SERUM 4.3 mmol/L (3.5-5.1)
[2019-10-03 08:00] VITALS: BP 147/72
--- NOTE | 2019-10-03 08:22 | NUR ---
PT RESTING IN BED WITH EYES OPEN. NO S/S OF DISTRESS. NO C/O AT THIS TIME. PT IS ALERT AND ORIENTATED. PT TELEMETRY 63 SINUS RYTHM. BILAT AC IV, PATENT WITH NO REDNESS, SWELLING, OR TENDERNESS. R AC IV NORMAL SALINE @ 125 ML/HR. L AC IS SALINE LOC. PT HAS NO C/O OF TINGLING/NUMBNESS THIS MORNING. CALL LIGHT IN PLACE. WILL CONTINUE TO MONITOR.
[2019-10-03 12:00] VITALS: BP 158/79
--- NOTE | 2019-10-03 12:10 | NUR ---
CALLED [facility] AND SPOKE TO ELENA VEGA NURSE IN REGARDS TO PT NEEDING TO HAVE MONITOR UPON DC STATED SHE WILL MAKE A NOTE OF IT IN PT CHART AND WILL DISCUSS AT FOLLOW UP APPOINTMENT THEY HAVE CARDIOLOGY WELL
--- NOTE | 2019-10-03 12:47 | NUR ---
I have reviewed this patient and I concur with the Shift Assessment completed by the Licensed Practical Nurse today this shift.
--- NOTE | 2019-10-03 12:55 | MORECARE ---
CASE MANAGEMENT DISCHARGE SUMMARY PATIENT: ALISA HOPSON UNIT: [id number] ADM DATE: 10/01/19 AGE: 64 : 55 SEX: M ROOM/BED: D.2216 AUTHOR: ANA GARRISON PHYSICIAN: REFERRING PHYSICIAN: RIGO NICK MD DATE OF SERVICE: 10/03/19 Discharge Plan Patient Name: ALIAS HOPSON [facility] [facility] 1955 Planned Disposition: Home Health Service Anticipated Discharge Date: Discharge Date: Expected LOS: Initial Reviewer: [email or web address] Initial Review Date: 10/01/2019 Generated: 10/03/19 1:54 pm Patient Name: ALISA HOPSON Page [id number] at 1255 All edits/amendments must be made on the electronic document DICTATION DATE: 10/03/19 125 COVER MAKER: CARI 10/03/19 1254 RPT#: [id number] DC DATE: STATUS: ADM IN [facility] [address] [place] [address] END OF REPORT
--- NOTE | 2019-10-03 13:01 | MORECARE ---
CASE MANAGEMENT DISCHARGE SUMMARY PATIENT: ALISA HOPSON UNIT: [id number] ADM DATE: 10/01/19 AGE: 64 : 55 SEX: M ROOM/BED: D.2216 AUTHOR: ANA GARRISON PHYSICIAN: REFERRING PHYSICIAN: RIGO NICK MD DATE OF SERVICE: 10/03/19 Discharge Plan Patient Name: ALISA HOPSON Facility: [facility]:[place] : 1955 Planned Disposition: Home Health Service Anticipated Discharge Date: Discharge Date: Expected LOS: Initial Reviewer: [email or web address] Initial Review Date: 10/01/2019 Generated: 10/03/19 2:01 pm Comments DCP- Discharge Planning Updated by [email or web address]: Francesca Marsh on 10/03/19 11:[address] Patient Name: ALISA HOPSON Admission Status: ER Accout number: [id number] Admission Date: 10-01-2019 : 1955 Admission Diagnosis: Attending: RIGO NICK Current LOS: 2 Anticipated DC Date: Planned Disposition: Home Health Service Primary Insurance: [employer] CHOICE PPO MCR ADVANT Discharge Planning Comments: CM met with patient to complete initial dc planning assessment. CM educated patient on the CM role and verbal consent given by patient to complete assessment. Patient lives at home with his adult daughter and her where he states he is independent with his care. At discharge patient plans to return home and feels this is a safe discharge. CM discussed availability of home health, rehab services, and medical equipment. The doctor wants him to have home health DELVIN obtained for Elite/caden. He also wanted a walker with a seat if he could have it. DELVIN for Moses. He stated his daughter will be the one to drive him home at discharge. I will send referral to them. Patient uses a cane at this time. He has an apt with Dr Lockhart set up for Monday for a tele monitor. Patient denied known discharge needs at this time. CM will continue to follow and will assist as needed with dc plans/needs Muck Miner Blasting: Francesca Marsh External Providers [facility] Next Contact Date: Service Request Date: Service Type: Resolution: Reviewer: Comments: Last DP export: 10/03/19 11:55 Patient Name: ALISA HOPSON Page [phone] at 1301 All edits/amendments must be made on the electronic document DICTATION DATE: 10/03/19 1301 JUVENILE DETENTION OFFICER: CARI 10/03/19 1301 RPT#: [id number] DC DATE: STATUS: ADM IN [facility] [address] [place] [address] END OF REPORT
--- NOTE | 2019-10-03 13:08 | MORECARE ---
CASE MANAGEMENT DISCHARGE SUMMARY PATIENT: ALISA HOPSON UNIT: [id number] ADM DATE: 10/01/19 AGE: 64 : 55 SEX: M ROOM/BED: D.2216 AUTHOR: ANA GARRISON PHYSICIAN: REFERRING PHYSICIAN: RIGO NICK MD DATE OF SERVICE: 10/03/19 Discharge Plan Patient Name: ALISA HOPSON Facility: [facility]:[place] : 1955 Planned Disposition: Home Health Service Anticipated Discharge Date: Discharge Date: Expected LOS: Initial Reviewer: [email or web address] Initial Review Date: 10/01/2019 Generated: 10/03/19 2:08 pm Comments DCP- Discharge Planning Updated by [email or web address]: Francesca Marsh on 10/03/19 11:[address] Patient Name: ALISA HOPSON Admission Status: ER Accout number: [id number] Admission Date: 10-01-2019 : 1955 Admission Diagnosis: Attending: RIGO NICK Current LOS: 2 Anticipated DC Date: Planned Disposition: Home Health Service Primary Insurance: [employer] CHOICE PPO MCR ADVANT Discharge Planning Comments: CM met with patient to complete initial dc planning assessment. CM educated patient on the CM role and verbal consent given by patient to complete assessment. Patient lives at home with his adult daughter and her where he states he is independent with his care. At discharge patient plans to return home and feels this is a safe discharge. CM discussed availability of home health, rehab services, and medical equipment. The doctor wants him to have home health DELVIN obtained for Elite/caden. He also wanted a walker with a seat if he could have it. DELVIN for Moses. He stated his daughter will be the one to drive him home at discharge. I will send referral to them. Patient uses a cane at this time. He has an apt with Dr Lockhart set up for Monday for a tele monitor. Patient denied known discharge needs at this time. CM will continue to follow and will assist as needed with dc plans/needs Locomotive Engineer Electric: Francesca Marsh External Providers [facility] Next Contact Date: Service Request Date: Service Type: Resolution: Reviewer: Comments: Last DP export: 10/03/19 12:01 Patient Name: ALISA HOPSON Page [phone] at 1308 All edits/amendments must be made on the electronic document DICTATION DATE: 10/03/19 1308 MEDICAL OFFICER PSYCHIATRY: CARI 10/03/19 1308 RPT#: [id number] DC DATE: STATUS: ADM IN [facility] [address] [place] [address] END OF REPORT
[2019-10-03] MEDS ORDERED: LOVENOX80 MG/0.8 SC (13:38)
[2019-10-03] MEDS ORDERED: COUMADIN3 MG PO (13:38)
--- NOTE | 2019-10-03 14:39 | NUR ---
OT NOTE: DOS 10/02/19 PT COMPLETED BED MOB TASKS WITH SBA. PT COMPLETED EOB SITTING BALANCE WITH SPV. PT COMPLETED EOB DRESSING TASK WITH SET UP.PT COMPLETED BUE AROM EX. PT THANK YOU,NAY LEON
--- NOTE | 2019-10-03 15:16 | MORECARE ---
CASE MANAGEMENT DISCHARGE SUMMARY PATIENT: ALISA HOPSON UNIT: [id number] ADM DATE: 10/01/19 AGE: 64 : 55 SEX: M ROOM/BED: D.2216 AUTHOR: ANA GARRISON PHYSICIAN: REFERRING PHYSICIAN: RIGO NICK MD DATE OF SERVICE: 10/03/19 Discharge Plan Patient Name: ALISA HOPSON Facility: [facility]:[place] : 1955 Planned Disposition: Home Health Service Anticipated Discharge Date: Discharge Date: Expected LOS: Initial Reviewer: [email or web address] Initial Review Date: 10/01/2019 Generated: 10/03/19 4:16 pm Comments DCP- Discharge Planning Updated by [email or web address]: Francesca Marsh on 10/03/19 11:[address] Patient Name: ALSIA HOPSON Admission Status: ER Accout number: [id number] Admission Date: 10-01-2019 : 1955 Admission Diagnosis: Attending: RIGO NICK Current LOS: 2 Anticipated DC Date: Planned Disposition: Home Health Service Primary Insurance: [employer] CHOICE PPO MCR ADVANT Discharge Planning Comments: CM met with patient to complete initial dc planning assessment. CM educated patient on the CM role and verbal consent given by patient to complete assessment. Patient lives at home with his adult daughter and her where he states he is independent with his care. At discharge patient plans to return home and feels this is a safe discharge. CM discussed availability of home health, rehab services, and medical equipment. The doctor wants him to have home health DELVIN obtained for Elite/caden. He also wanted a walker with a seat if he could have it. DELVIN for Moses. He stated his daughter will be the one to drive him home at discharge. I will send referral to them. Patient uses a cane at this time. He has an apt with Dr Lockhart set up for Monday for a tele monitor. Patient denied known discharge needs at this time. CM will continue to follow and will assist as needed with dc plans/needs Cotton Bag Sewer: Francesca Marsh External Providers External Provider: [facility] Next Contact Date: Service Request Date: Service Type: Resolution: Reviewer: Comments: Last DP export: 10/03/19 12:08 Patient Name: ALISA HOPSON Page 19711 at 1516 All edits/amendments must be made on the electronic document DICTATION DATE: 10/03/191515 CFD ENGINEER: CARI 10/03/191515 RPT#: [id number] DC DATE: STATUS: ADM IN [facility] [address] [place] [address] END OF REPORT
--- NOTE | 2019-10-03 15:25 | MORECARE ---
CASE MANAGEMENT DISCHARGE SUMMARY PATIENT: ALISA HOPSON UNIT: [id number] ADM DATE: 10/01/19 AGE: 64 : 55 SEX: M ROOM/BED: D.2216 AUTHOR: MELIDOC PHYSICIAN: REFERRING PHYSICIAN: RIGO NICK MD DATE OF SERVICE: 10/03/19 Discharge Plan Patient Name: ALISA HOPSON Facility: [facility]:[place] : 1955 Planned Disposition: Home Health Service Anticipated Discharge Date: Discharge Date: Expected LOS: Initial Reviewer: [email or web address] Initial Review Date: 10/01/2019 Generated: 10/03/19 4:25 pm Comments DCP- Discharge Planning Updated by [email or web address]: Francesca Marsh on 10/03/19 2:[address] PATIENT WILL BE DISCHARGING HOME WITH [facility] AND I HAVE SENT A ROLLATOR WALKER OVER TO [employer] ( THE [employer] THAT IS IN NETWORK FOR HIS INSURANCE) HE HAS A 50.00 COPAY FOR THIS AND THE PATIENT SAID HE WANTED IT, BUT COULD NOT PAY THE 50.00 TILL THE . DCP- Discharge Planning Updated by [email or web address]: Francesca Marsh on 10/03/19 11:[address] Patient Name: ALISA HOPSON Admission Status: ER Accout number: [id number] Admission Date: 10-01-2019 : 1955 Admission Diagnosis: Attending: RIGO NICK Current LOS: 2 Anticipated DC Date: Planned Disposition: Home Health Service Primary Insurance: [employer] CHOICE PPO MCR ADVANT Discharge Planning Comments: CM met with patient to complete initial dc planning assessment. CM educated patient on the CM role and verbal consent given by patient to complete assessment. Patient lives at home with his adult daughter and her where he states he is independent with his care. At discharge patient plans to return home and feels this is a safe discharge. CM discussed availability of home health, rehab services, and medical equipment. The doctor wants him to have home health DELVIN obtained for Elite/caden. He also wanted a walker with a seat if he could have it. DELVIN for Moses. He stated his daughter will be the one to drive him home at discharge. I will send referral to them. Patient uses a cane at this time. He has an apt with Dr Lockhart set up for Monday for a tele monitor. Patient denied known discharge needs at this time. CM will continue to follow and will assist as needed with dc plans/needs Ocean Export Agent: Francesca Guerra DP export: 10/03/19 2:16 Patient Name: ALISA HOPSON Page [phone] at 1525 All edits/amendments must be made on the electronic document DICTATION DATE: 10/03/19 152 BUCKLE SEWER MACHINE: CARI 10/03/19 1525 RPT#: [id number] DC DATE: STATUS: ADM IN [facility] [address] [place] [address] END OF REPORT
--- NOTE | 2019-10-03 15:25 | EC ---
PATIENT:ALISA HOPSON DATE OF SERVICE: 10/01/19 SEX: M MEDICAL RECORD: [id number] DATE OF : [birth year] LOCATION:D.MS [address] AGE OF PATIENT: 64 ADMISSION DATE: 10/01/19 REFERRING PHYSICIAN: INTERPRETING PHYSICIAN: BRIDGETTE BENNETT MD ECHOCARDIOGRAM REPORT ECHO CHARGES 4 ECHO COMPLETE Date: 10/02/19 CLINICAL DIAGNOSIS: TIA VS. CVA ECHOCARDIOGRAPHIC MEASUREMENTS (adult normal given) AC root (d.<3.7cm) 2.7 cm LV Septum d (<1.2 cm> 1.3 cm Valve Excursion 1.9 cm LV Septum (systole) 1.8 cm Left Atria (s.<4.0cm> 3.0 cm LVPW d(<1.2cm) 1.3 cm RV (d.<2.3cm) 2.1 cm LVPW (sytole) 1.8 cm LV diastole(<5.6CM) 4.1 cm MV E-F(>70mm/sec) cm LV systole 2.6 cm LVOT Diameter 1.6 cm MV exc.(>10mm) cm Est.ejection fraction (50-75%) % DOPPLER: LVIT cm/sec A 48.0 cm/sec E 79.0 cm/sec LA cm/sec RVSP mmHg LVOT 85.0 cm/sec AOP1/2T m/s Asc. Ao 112 cm/sec RVOT 73.0 cm/sec RA cm/sec PA 95.0 cm/sec AV Gradient Peak 5.0 mmHg AV Mean 2.5 mmHg AV Area 1.6 cm MV Gradient Peak 3.4 mmHg MV Mean 1.4 mmHg MV Area cm COMMENTS: Welder Plasma Arc: 1 DINO DAVENPORTOE Measurement Department Chief Clerk: 1 Dr. Bennett TAPE# PACS Pericardial Effusion N DATE OF SERVICE: PROCEDURE: Echocardiogram. FINDINGS: 1. Left ventricular chamber size is within normal limits. Left ventricular systolic function is normal. Overall ejection fraction estimated at 55% to 60%. 2. Left atrium, right atrium, and right ventricle chamber sizes are within normal limits. 3. Valvular structures have normal structure and motion. ECHOCARDIOGRAM REPORT [id number] ALISA HOPSON 4. Doppler interrogation reveals only trace mitral regurgitation, no other valvular insufficiency or stenosis. 5. No cardiac source of neurologic emboli. TRANSINT:[id number] Voice Confirmation ID: [id number] DOCUMENT ID: [id number] BRIDGETTE BENNETT MD at 1525 CC: [id number] DICTATION DATE: 10/02/19 1551 INTERVENTIONAL RADIOLOGY TECHNOLOGIST: 10/03/19 0013 ADM IN [facility] [address] [place] [address]
--- NOTE | 2019-10-03 15:25 | NUR ---
OT NOTE: SBA FOR SIMPLE ADLS; CGA WITH IN ROOM AMBULATION. GAIT REMAINS UNSTEADY. CAR THOMPSON, OTR/L
--- NOTE | 2019-10-03 16:50 | NUR ---
PATIENT AND DAUGHTER GIVEN DISCHARGE INSTRUCTIONS. PATIENT AND DAUGHTER DEMONSTRATED UNDERSTANDING, AND NO QUESTIONS. IV WAS TAKEN OUT OF BOTH THE LEFT AND RIGHT AC. BOTH CATHETER TIPS WERE INTACT. NO S/S OF DISTRESS. PATIENT LEFT VIA WHEELCHAIR AND ESCORTED BY HOSPITAL STAFF. PATIENT LEFT WITH DAUGHTER IN DAUGHTER'S CAR. PATIENT DENIED ANY FURTHER NEEDS.
--- NOTE | 2019-10-04 07:25 | NUR ---
OT NOTE: DOS 10/03/19 PT EXHIBITED NEED FOR CGA WITH ADL MOB USING CANE. PT COMPLETED DYNAMIC STANDING BALANCE WITH SELF CARE TASKS WITH CGA. PT COMPLETED DRESSING TASKS WITH CGA.PT EXHIBITED DECREASED SAFETY AWARENESS WITH STANDING ACTIVITIES. THANK YOU,NAY LEON
--- NOTE | 2019-10-07 12:24 | MORECARE ---
CASE MANAGEMENT DISCHARGE SUMMARY PATIENT: ALISA HOPSON UNIT: [id number] ADM DATE: 10/01/19 AGE: 64 : 55 SEX: M ROOM/BED: D.2216 AUTHOR: MELIDOC PHYSICIAN: REFERRING PHYSICIAN: RIGO NICK MD DATE OF SERVICE: 10/07/19 Discharge Plan Patient Name: ALISA HOPSON Facility: [facility]:[place] : 1955 Planned Disposition: Home Health Service Anticipated Discharge Date: Discharge Date: 10/03/2019 Expected LOS: Initial Reviewer: [email or web address] Initial Review Date: 10/01/2019 Generated: 10/07/19 1:23 pm Comments DCP- Discharge Planning Updated by [email or web address]: Francesca Marsh on 10/03/19 2:[address] PATIENT WILL BE DISCHARGING HOME WITH [facility] AND I HAVE SENT A ROLLATOR WALKER OVER TO [employer] ( THE [employer] THAT IS IN NETWORK FOR HIS INSURANCE) HE HAS A 50.00 COPAY FOR THIS AND THE PATIENT SAID HE WANTED IT, BUT COULD NOT PAY THE 50.00 TILL THE . DCP- Discharge Planning Updated by [id number]: Francesca Marsh on 10/03/19 11:[address] Patient Name: ALISA HOPSON Admission Status: ER Accout number: [id number] Admission Date: 10-01-2019 : 1955 Admission Diagnosis: Attending: RIGO NICK Current LOS: 2 Anticipated DC Date: Planned Disposition: Home Health Service Primary Insurance: [employer] CHOICE PPO MCR ADVANT Discharge Planning Comments: CM met with patient to complete initial dc planning assessment. CM educated patient on the CM role and verbal consent given by patient to complete assessment. Patient lives at home with his adult daughter and her where he states he is independent with his care. At discharge patient plans to return home and feels this is a safe discharge. CM discussed availability of home health, rehab services, and medical equipment. The doctor wants him to have home health DELVIN obtained for Elite/caden. He also wanted a walker with a seat if he could have it. DELVIN for Moses. He stated his daughter will be the one to drive him home at discharge. I will send referral to them. Patient uses a cane at this time. He has an apt with Dr Lockhart set up for Monday for a tele monitor. Patient denied known discharge needs at this time. CM will continue to follow and will assist as needed with dc plans/needs Gerentological Physiotherapist: Francesca Marsh Coverage Notice Reviewer: [id number] - Francesca Marsh Notice Issued Date-Time: 10/03/2019 13:00 Notice Type: Patient Choice Letter Notice Delivered To: Patient Relationship to Patient: Associate Name: Delivery Method: HAND - Hand Delivered Lorie Days: Prior Verbal Notification: Recipient Understood Notice: Yes Recipient Signature: Yes Med Rec Note Co-signed by Attending: Coverage Notice Comment: elite/caden moses/areo care Last DP export: 10/03/19 2:25 Patient Name: ALISA HOPSON Page 20111 at 1224 All edits/amendments must be made on the electronic document DICTATION DATE: 10/07/191222 AIRCRAFT PARTS ASSEMBLER: CARI 10/07/193 RPT#: [id number] DC DATE:10/03/19 STATUS: DIS IN [facility] [address] [place] [address] END OF REPORT
== END 2019-10-03 16:50 | disposition home health service (06) | DRG 65 ==
LOC: D.ER 21:24 → D.MS 22:10
PROVIDERS: Family Medicine; ADMIT Internal Medicine Nephrology; ATTEND Internal Medicine Nephrology
DX: I63.40 Cerebral infarction due to embolism of unspecified cerebral artery (principal); N17.9 Acute kidney failure, unspecified; G81.94 Hemiplegia, unspecified affecting left nondominant side; D72.829 Elevated white blood cell count, unspecified; I73.9 Peripheral vascular disease, unspecified; M54.9 Dorsalgia, unspecified; I12.9 Hypertensive chronic kidney disease with stage 1 through stage 4 chronic kidney disease, or unspecified chronic kidney disease; N18.9 Chronic kidney disease, unspecified; Z86.73 Personal history of transient ischemic attack (TIA), and cerebral infarction without residual deficits; I25.2 Old myocardial infarction

== ENCOUNTER 2019-10-31 16:17 | Inpatient (IN) | payer MEDICARE, OTHER ==
[~2019-10-31] VITALS: Ht 180.3 cm; Wt 70.5 kg
[~2019-10-31 16:17] MED LIST changes: +COUMADIN3 MG PO; +LOVENOX80 MG/0.8 SC
[2019-10-31 16:58] LABS: BASOPHILS 0.3 % (0-2); EOSINOPHILS 4.6 % (0-7); HEMATOCRIT 49.4 % (42.0-54.0); HEMOGLOBIN 15.9 g/dL (13.5-17.5); IMMATURE GRANULOCYTES 0.3 % (0-5); LYMPHOCYTES 25.7 % (15-50); MCH 28.5 pg (26.0-34.0); MCHC 32.2 g/dL (31.0-37.0); MCV 88.7 fL (80.0-100.0); MEAN PLATELET VOLUME 11.6 fL (7.4-10.4); NEUTROPHILS 64.1 % (40-80); PLATELET COUNT 199 10x3/uL (130-400); RBC 5.57 10x6/uL (4.20-6.10); RDW 13.9 % (11.5-14.5); WBC 11.6 10x3/uL (4.8-10.8)
[2019-10-31 17:14] LABS: CALC OSMOLALITY 278 mosm/kg (275-300); CALCIUM 8.9 mg/dL (8.5-10.1); CARBON DIOXIDE 31.5 mmol/L (21.0-32.0); CHLORIDE - SERUM 102 mmol/L (98-107); CREATININE - SERUM 1.8 mg/dL (0.6-1.3); GLUCOSE 110 mg/dL (74-106); POTASSIUM - SERUM 5.1 mmol/L (3.5-5.1); SODIUM 137 mmol/L (136-145); UREA NITROGEN 24 mg/dL (7-18); eGFR NON AFRICAN AMERICAN 40 mL/min (90-120)
[2019-10-31 17:22] LABS: APTT 35.9 SECONDS (22.8-39.4); PROTIME 13.2 SECONDS (11.6-15.0)
[2019-10-31 17:30] VITALS: BP 176/87
[2019-10-31 17:30] LABS: ALBUMIN 3.5 g/dL (3.4-5.0); ALKALINE PHOSPHATASE 91 U/L (46-116); ALT (SGPT) 17 U/L (10-68); BILIRUBIN - TOTAL 0.28 mg/dL (0.2-1.3); CKMB 2.3 U/L (0.0-3.6); CREATINE KINASE 57 UL (21-232); MAGNESIUM - SERUM 2.3 mg/dL (1.8-2.4); PROTEIN - SERUM 7.5 g/dL (6.4-8.2); THYROID STIMULATING HORMONE 0.75 uIU/mL (0.36-3.74); TROPONIN-I 0.026 ng/mL (0.000-0.060)
--- NOTE | 2019-10-31 17:31 | NUR ---
STROKE BAND NUMBER [id number]
[2019-10-31 18:30] VITALS: BP 165/88
[2019-10-31 19:08] VITALS: BP 164/83
--- NOTE | 2019-10-31 19:10 | NUR ---
REPORT GIVEN TO DOTTY VALADEZ
--- NOTE | 2019-10-31 19:26 | NUR ---
ATTEMPTED TO CALL REPORT. UNABLE TO GET ANSWER ON MED II AFTER RINGING FOR 1 MINUTE.
--- NOTE | 2019-10-31 21:32 | NUR ---
PT RECIEVED TO FLOOR FROM [facility]. PT IS A/O X4 AT THIS TIME. RR EVEN AND UNLABORED. BP 175/83 O2-99%RA P-68 T-98.6. BRAULIO BED ALARM IN PLACE. PT DENIES ANY PAIN OR FURTHER NEEDS AT THIS TIME. JENNA ROBLEDO NOTIFIED OF BP. PRN HYDROLAZINE ORDER RECIEVED. WILL CONTINUE TO MONITOR.
--- NOTE | 2019-10-31 22:45 | NUR ---
PT RESTING IN BED WATCHING TV. NO S/S OF DISTRESS. URINE COLLECTED ABD SENT TO LAB. WILL CONTINUE TO MONITOR.
[2019-11-01] VITALS: BP 162/71
[2019-11-01 00:22] LABS: APPEARANCE CLEAR (CLEAR); BILIRUBIN NEGATIVE (NEGATIVE); COLOR YELLOW (YELLOW); GLUCOSE NEGATIVE (NEGATIVE); KETONE NEGATIVE (NEGATIVE); NITRITE NEGATIVE (NEGATIVE); PROTEIN 3+ mg/dL (NEGATIVE); SPECIFIC GRAVITY 1.015 (1.005-1.020); UROBILINOGEN NORMAL (NORMAL)
[2019-11-01 00:24] LABS: BACTERIA FEW /hpf (NEGATIVE); EPITHELIAL CELLS 0-5 /hpf (0-5); RED CELLS - URINE 0-5 /hpf (0-5); WHITE CELLS - URINE 0-5 /hpf (NEGATIVE)
--- NOTE | 2019-11-01 03:06 | NUR ---
PT RESTING IN BED WITH EYES CLOSED. RR EVEN AND UNLABORED AT THIS TIME. BED LOW CALL LIGHT WITHIN REACH. WILL CONTINUE TO MONITOR.
[2019-11-01 04:00] VITALS: BP 144/76
--- NOTE | 2019-11-01 04:29 | NUR ---
I have reviewed this patient and I concur with the Shift Assessment completed by the Licensed Practical Nurse today this shift.
[2019-11-01 06:38] LABS: BASOPHILS 0.3 % (0-2); EOSINOPHILS 5.4 % (0-7); HEMATOCRIT 46.8 % (42.0-54.0); HEMOGLOBIN 15.1 g/dL (13.5-17.5); IMMATURE GRANULOCYTES 0.2 % (0-5); MCH 28.4 pg (26.0-34.0); MCHC 32.3 g/dL (31.0-37.0); MCV 88.1 fL (80.0-100.0); MEAN PLATELET VOLUME 11.7 fL (7.4-10.4); MONOCYTES 6.5 % (2-11); NEUTROPHILS 53.6 % (40-80); PLATELET COUNT 182 10x3/uL (130-400); RBC 5.31 10x6/uL (4.20-6.10); RDW 13.8 % (11.5-14.5); WBC 10.7 10x3/uL (4.8-10.8)
[2019-11-01 06:55] LABS: APTT 35.5 SECONDS (22.8-39.4); PROTIME 13.2 SECONDS (11.6-15.0)
[2019-11-01 07:10] LABS: ANION GAP 10.7 mmol/L (8-16); CALCIUM 8.7 mg/dL (8.5-10.1); CARBON DIOXIDE 28.2 mmol/L (21.0-32.0); CREATININE - SERUM 1.6 mg/dL (0.6-1.3); PHOSPHOROUS 3.3 mg/dL (2.5-4.9); POTASSIUM - SERUM 4.9 mmol/L (3.5-5.1)
--- NOTE | 2019-11-01 08:42 | NUR ---
PATIENT IS ALERT AND AWAKE. HE IS REQUESTING BREAKFAST. HE HAS BEEN INFORMED THAT HE IS NPO BECASUE WE HAVE TO DO A SWALLOW STUDY BEFORE HE CAN EAT, IT IS PROTOCOL FOR STROKE PRECAUTIONS.
[2019-11-01 09:46] VITALS: BP 165/63
--- NOTE | 2019-11-01 10:06 | NUR ---
Rehab Prescreening Consult recieved and the chart has been reviewed. He is [employer] managed care and requires a preauth. He has a PT and ST eval ordered but will also need an OT eval. Will discuss with the MD and CM in the IDT meeting. Aster Swan RN Clinical Liaison, Rehab
[2019-11-01 12:42] VITALS: BP 147/73; Ht 180.3 cm; Wt 70.5 kg
--- NOTE | 2019-11-01 14:32 | NUR ---
CALLED [facility] TO COME ASSESS THE PATIENT FOR SWALLOW STUDY. PATIENT IS COMPLANING ABOUT NOT BEING ABLE TO EAT. HE IS ALERT AND ORIENTED. HIS SPEECH IS CLEAR. HE ANSWERS QUESTIONS COHERENTLY.
[2019-11-01 14:56] VITALS: BP 150/72
--- NOTE | 2019-11-01 15:31 | NUR ---
SWALLOW STUDY COMPLETE. DIET ORDER PLACED.
--- NOTE | 2019-11-01 16:00 | NUR ---
Rehab Note- Spoke w/ XAVIER Marmolejo to obtain an OT Eval for PreAuth process with [facility]. Will continue to follow at this time. Thank you for this referral! Wanda Lindsay RN Clinical Liaison, [facility] Rehab
[2019-11-01 20:00] VITALS: BP 148/64
[2019-11-02 04:00] VITALS: BP 151/78
[2019-11-02 05:25] LABS: BASOPHILS 0.4 % (0-2); EOSINOPHILS 5.2 % (0-7); HEMATOCRIT 44.9 % (42.0-54.0); HEMOGLOBIN 14.7 g/dL (13.5-17.5); IMMATURE GRANULOCYTES 0.2 % (0-5); LYMPHOCYTES 31.7 % (15-50); MCH 28.5 pg (26.0-34.0); MCHC 32.7 g/dL (31.0-37.0); MEAN PLATELET VOLUME 11.7 fL (7.4-10.4); MONOCYTES 7.2 % (2-11); NEUTROPHILS 55.3 % (40-80); PLATELET COUNT 179 10x3/uL (130-400); RBC 5.16 10x6/uL (4.20-6.10); RDW 13.9 % (11.5-14.5); WBC 10.6 10x3/uL (4.8-10.8)
[2019-11-02 05:51] LABS: ANION GAP 11.8 mmol/L (8-16); CALCIUM 8.5 mg/dL (8.5-10.1); CARBON DIOXIDE 27.5 mmol/L (21.0-32.0); CREATININE - SERUM 1.6 mg/dL (0.6-1.3); MAGNESIUM - SERUM 2.2 mg/dL (1.8-2.4); POTASSIUM - SERUM 4.3 mmol/L (3.5-5.1)
--- NOTE | 2019-11-02 07:05 | NUR ---
I have reviewed this patient and I concur with the Shift Assessment completed by the Licensed Practical Nurse today this shift.
[2019-11-02 08:54] VITALS: BP 148/75
[2019-11-02 12:00] VITALS: BP 144/74
[2019-11-02 16:00] VITALS: BP 153/80
[2019-11-02 20:30] VITALS: BP 164/84
--- NOTE | 2019-11-02 20:46 | NUR ---
INITIAL ROUNDS COMPLETED AT 1914 HRS. PT RESTING WITH EYES CLOSED. RESP EVEN AND REGULAR. ASSESSMENT COMPLETED AT 1944. PT AWAKES TO LOUD VERBAL STIMULI. ORIENTED TO PERSON AND PLACE. REORIENTED TO TIME AND SITUATION. SB PER CM HR 58. IV TO LAC EITH 1/2NS AT 50CC/HR. IV PATENT. IV TO RAC SL. EQUAL AND STRONG HAND CLASSIFICATION ANALYST. FOLLOWS COMMANDS. LUNGS DIMINISHED IN BASES BILAT. ABD SOFT WTIH ACTIVE BS NOTED. BILAT LOWER EXTREMITIES SLIGHTLY WEAK. PAOSEY MAT ALARM ON. PT UP TO BR AT 1954 HRS. GAIT SLIGHTLY UNSTEADY. VOIDED LARGE AMOUNT OF URINE. BACK TO BED WITH ASSIST. PT VERY RESIGHINI. SR UP X1, CALL LIGHT WITHIN REACH AND BED ALARM ON.
--- NOTE | 2019-11-02 22:48 | NUR ---
IV TO LAC LEAKING. DC'D WITH CATHETER INTACT. CRACK NOTED TO HUB OF IV. 1/2 NS RESTARTED TO RAC AT 50CC/HR. SR UP X1, CALL LIGHT WITHIN REACH AND BED ALARM ON.
[2019-11-03] VITALS: BP 149/80
--- NOTE | 2019-11-03 01:13 | NUR ---
IV TO RAC OCCLUDED. DC'D WITH CATHETER INTACT. NEW IV STARTED #20 TO LFA WITH ATTEMPT X1. PT TOLERATED ACTIVITY WELL. 1/2NS RESTARTED AT 50CC/HR. SR UP X2, CALL LIGHT WITHIN REACH AND BED ALARM ON.
[2019-11-03 03:55] VITALS: BP 139/73
--- NOTE | 2019-11-03 04:17 | NUR ---
PT RESTING WITH EYES CLOSED. RESP EVEN AND REGULAR. SR UP X2, CALL LIGHT WITHIN REACH AND BED ALARM ON.
[2019-11-03 05:40] LABS: BASOPHILS 0.4 % (0-2); EOSINOPHILS 5.3 % (0-7); HEMOGLOBIN 14.2 g/dL (13.5-17.5); IMMATURE GRANULOCYTES 0.2 % (0-5); LYMPHOCYTES 35.4 % (15-50); MCH 28.2 pg (26.0-34.0); MCHC 32.3 g/dL (31.0-37.0); MCV 87.3 fL (80.0-100.0); MONOCYTES 6.6 % (2-11); NEUTROPHILS 52.1 % (40-80); PLATELET COUNT 186 10x3/uL (130-400); RBC 5.04 10x6/uL (4.20-6.10); RDW 13.8 % (11.5-14.5); WBC 10.6 10x3/uL (4.8-10.8)
[2019-11-03 06:08] LABS: CALCIUM 8.1 mg/dL (8.5-10.1); CARBON DIOXIDE 26.2 mmol/L (21.0-32.0); CREATININE - SERUM 1.7 mg/dL (0.6-1.3); MAGNESIUM - SERUM 2.1 mg/dL (1.8-2.4); PHOSPHOROUS 3.7 mg/dL (2.5-4.9); POTASSIUM - SERUM 4.2 mmol/L (3.5-5.1)
--- NOTE | 2019-11-03 06:14 | NUR ---
VSS THROUGHOUT NIGHT. SR/SB PER CM. PT DENIED ANY DISCOMFORT. REFUSES BATH THIS SHIFT. NEEDS MET; WILL CONTINUE TO MONITOR.
[2019-11-03 10:48] VITALS: BP 177/83
[2019-11-03 14:25] VITALS: BP 163/73
--- NOTE | 2019-11-03 15:22 | NUR ---
TOBACCO QUITLINE FORM COMPLETED AND FAXED.
--- NOTE | 2019-11-03 15:31 | NUR ---
ONE OF PT'S HOME MEDS WAS LOVENOX INJECTIONS. SPOKE WITH DR NICK AND PT IS TO DISCONTINUE LOVENOX, CONTINUE COUMADIN.
--- NOTE | 2019-11-03 16:03 | MORECARE ---
CASE MANAGEMENT DISCHARGE SUMMARY PATIENT: ALISA HOPSON UNIT: [id number] ADM DATE: 10/31/19 AGE: 64 : 55 SEX: M ROOM/BED: D.2108 AUTHOR: ANA GARRISON PHYSICIAN: REFERRING PHYSICIAN: RIGO NICK MD DATE OF SERVICE: 11/03/19 Discharge Plan Patient Name: ALISA HOPSON [facility] [facility] 1955 Planned Disposition: Home with Home Health Anticipated Discharge Date: Discharge Date: Expected LOS: Initial Reviewer: [id number] Initial Review Date: 11/03/2019 Generated: 11/03/19 5:02 pm Coverage Notice Reviewer: [email or web address] Dewayne Florez Notice Issued Date-Time: 11/03/2019 13:56 Notice Type: IM Discharge Notice Notice Delivered To: Patient Relationship to Patient: Self Ironer Sock Name: Delivery Method: HAND - Hand Delivered Lorie Days: Prior Verbal Notification: Recipient Understood Notice: Yes Recipient Signature: Yes Med Rec Note Co-signed by Attending: Coverage Notice Comment: Reviewer: [id number] Dewayne Florez Notice Issued Date-Time: 11/03/2019 13:56 Notice Type: Patient Choice Letter Notice Delivered To: Patient Relationship to Patient: Self Ironer Sock Name: Delivery Method: HAND - Hand Delivered Lorie Days: Prior Verbal Notification: Recipient Understood Notice: Yes Recipient Signature: Yes Med Rec Note Co-signed by Attending: Coverage Notice Comment: RESUME CARE WITH [facility] Patient Name: ALISA HOPSON Page 32909 at 1603 All edits/amendments must be made on the electronic document DICTATION DATE: 11/03/19 1602 [employer] ESTATE AGENCY LICENSEE: CARI 11/03/19 1602 RPT#: [id number] DC DATE: STATUS: ADM IN [facility] [address] [place] [address] END OF REPORT
--- NOTE | 2019-11-03 16:18 | MORECARE ---
CASE MANAGEMENT DISCHARGE SUMMARY PATIENT: ALISA HOPSON UNIT: [id number] ADM DATE: 10/31/19 AGE: 64 : 55 SEX: M ROOM/BED: D.2108 AUTHOR: MELI,DOC PHYSICIAN: REFERRING PHYSICIAN: RIGO NICK MD DATE OF SERVICE: 11/03/19 Discharge Plan Patient Name: ALISA HOPSON Facility: [facility]:[place] : 1955 Planned Disposition: Home with Home Health Anticipated Discharge Date: Discharge Date: Expected LOS: Initial Reviewer: [id number] Initial Review Date: 11/03/2019 Generated: 11/03/19 5:18 pm DCPIA - Discharge Planning Initial Assessment Updated by SUSANNA: Xena Florez on 11/03/19 4:14 pm * Is the patient Alert and Oriented? Yes * How many steps to enter\exit or inside your home? * PCP [facility] * Pharmacy [facility] * Preadmission Environment Home with Family * ADLs Independent * List name and contact numbers for known caregivers / representatives who currently or will assist patient after discharge: CRISTIANE HERRON - DAUGHTER - [phone] CLIFF LUKE - SON - [phone] * Verbal permission to speak to the caregivers and representatives has been obtained from the patient. Yes * Community resources currently utilized Home Health * Please name any agencies selected above. [facility] * Additional services required to return to the preadmission environment? No * Can the patient safely return to the preadmission environment? Yes * Has this patient been hospitalized within the prior 30 days at any hospital? Yes Coverage Notice Reviewer: [email or web address] Dewayne Florez Notice Issued Date-Time: 11/03/2019 13:56 Notice Type: IM Discharge Notice Notice Delivered To: Patient Relationship to Patient: Self Certified Coder Name: Delivery Method: HAND - Hand Delivered Lorie Days: Prior Verbal Notification: Recipient Understood Notice: Yes Recipient Signature: Yes Med Rec Note Co-signed by Attending: Coverage Notice Comment: Reviewer: [id number] Dewayne Florez Notice Issued Date-Time: 11/03/2019 13:56 Notice Type: Patient Choice Letter Notice Delivered To: Patient Relationship to Patient: Self Certified Coder Name: Delivery Method: HAND - Hand Delivered Lorie Days: Prior Verbal Notification: Recipient Understood Notice: Yes Recipient Signature: Yes Med Rec Note Co-signed by Attending: Coverage Notice Comment: RESUME CARE WITH [facility] Last DP export: 11/03/19 3:03 p Patient Name: ALISA HOPSON Page [phone] at 1618 All edits/amendments must be made on the electronic document DICTATION DATE: 11/03/191617 AUTOCAD: CARI 11/03/191617 RPT#: [id number] DC DATE: STATUS: ADM IN [facility] [address] [place] [address] END OF REPORT
--- NOTE | 2019-11-03 16:26 | MORECARE ---
CASE MANAGEMENT DISCHARGE SUMMARY PATIENT: ALISA HOPSON UNIT: [id number] ADM DATE: 10/31/19 AGE: 64 : 55 SEX: M ROOM/BED: D.2105 AUTHOR: MELI,DOC PHYSICIAN: REFERRING PHYSICIAN: RIGO NICK MD DATE OF SERVICE: 11/03/19 Discharge Plan Patient Name: ALISA HOPSON Facility: [facility]:[place] : 1955 Planned Disposition: Home with Home Health Anticipated Discharge Date: Discharge Date: Expected LOS: Initial Reviewer: [id number] Initial Review Date: 11/03/2019 Generated: 11/03/19 5:26 pm Comments DCP- Discharge Planning Updated by [email or web address]: Xena Florez on 11/03/19 3:[address] Patient Name: ALISA HOPSON Admission Status: ER Accout number: [id number] Admission Date: 10-31-2019 : 1955 Admission Diagnosis: Attending: RIGO NICK Current LOS: 3 Anticipated DC Date: Planned Disposition: Home with Home Health Primary Insurance: [employer] CHOICE PPO MCR ADVANT Discharge Planning Comments: CM met with patient at bedside after explaining CM role and obtaining verbal consent. Patient lives at home with his daughter where he is independent with his care and plans to return there upon discharge. Patient feels this would be a safe discharge. CM discussed availability / needs of home health and medical equipment. Patient is requesting a walker with a seat. CM looked back at previous admission and [employer] is the preferred DME company for his insurance. Rollator has been ordered on previous visit and patient has a $50.00 co pay. CM explained this to patient. Patient wishes to resume care with [facility] . Patient states he will have his family drive him home upon discharge. D/C IMM signed and DELVIN for [facility] 11/03/19 @ 2391. CM will continue to follow and assist as needed with discharge planning / needs. CM contacted [facility] nurse call or contact centre manager of discharge plan for today and will fax discharge summary. Employee Adviser: Xena Florez DCPIA - Discharge Planning Initial Assessment Updated by [email or web address]: Xena Florez on 1/19/20 4:14 pm * Is the patient Alert and Oriented? Yes * How many steps to enter\exit or inside your home? * PCP [facility] * [facility] * Preadmission Environment Home with Family * ADLs Independent * List name and contact numbers for known caregivers / representatives who currently or will assist patient after discharge: CRISTIANE HERRON - DAUGHTER - [phone] CLIFF LUKE - SON - [phone] * Verbal permission to speak to the caregivers and representatives has been obtained from the patient. Yes * Community resources currently utilized Home Health * Please name any agencies selected above. [facility] * Additional services required to return to the preadmission environment? No * Can the patient safely return to the preadmission environment? Yes * Has this patient been hospitalized within the prior 30 days at any hospital? Yes Coverage Notice Reviewer: [id number] Dewayne Florez Notice Issued Date-Time: 11/03/2019 13:56 Notice Type: IM Discharge Notice Notice Delivered To: Patient Relationship to Patient: Self X Ray Control Equipment Repairer Name: Delivery Method: HAND - Hand Delivered Lorie Days: Prior Verbal Notification: Recipient Understood Notice: Yes Recipient Signature: Yes Med Rec Note Co-signed by Attending: Coverage Notice Comment: Reviewer: [id number] Dewayne Florez Notice Issued Date-Time: 11/03/2019 13:56 Notice Type: Patient Choice Letter Notice Delivered To: Patient Relationship to Patient: Self X Ray Control Equipment Repairer Name: Delivery Method: HAND - Hand Delivered Lorie Days: Prior Verbal Notification: Recipient Understood Notice: Yes Recipient Signature: Yes Med Rec Note Co-signed by Attending: Coverage Notice Comment: RESUME CARE WITH [facility] Last DP export: 11/03/19 3:18 p Patient Name: ALISA HOPSON Page 37977 at 1626 All edits/amendments must be made on the electronic document DICTATION DATE: 11/03/191625 COWLMAN: CARI 11/03/19 162 RPT#: [id number] DC DATE: STATUS: ADM IN [facility] [address] [place] [address] END OF REPORT
--- NOTE | 2019-11-03 16:58 | NUR ---
PT'S DISCHARGE INSTRUCTIONS REVIEWED WITH HIM AND HIS DAUGHTER. IV REMOVED, TELEMETRY REMOVED. WHEELED TO FRONT DOOR VIA WHEELCHAIR.
--- NOTE | 2019-11-03 19:20 | MORECARE ---
CASE MANAGEMENT DISCHARGE SUMMARY PATIENT: ALISA HOPSON UNIT: [id number] ADM DATE: 10/31/19 AGE: 64 : 55 SEX: M ROOM/BED: D.2104 AUTHOR: MELI,DOC PHYSICIAN: REFERRING PHYSICIAN: RIGO NICK MD DATE OF SERVICE: 11/03/19 Discharge Plan Patient Name: ALISA HOPSON Facility: [facility]:[place] : 1955 Planned Disposition: Home with Home Health Anticipated Discharge Date: Discharge Date: 11/03/2019 Expected LOS: Initial Reviewer: [email or web address] Initial Review Date: 11/03/2019 Generated: 11/03/19 8:20 pm Comments DCP- Discharge Planning Updated by [email or web address]: Xena Florez on 11/03/19 3:[address] Patient Name: ALISA HOPSON Admission Status: ER Accout number: [id number] Admission Date: 10-31-2019 : 1955 Admission Diagnosis: Attending: RIGO NICK Current LOS: 3 Anticipated DC Date: Planned Disposition: Home with Home Health Primary Insurance: [employer] CHOICE PPO MCR ADVANT Discharge Planning Comments: CM met with patient at bedside after explaining CM role and obtaining verbal consent. Patient lives at home with his daughter where he is independent with his care and plans to return there upon discharge. Patient feels this would be a safe discharge. CM discussed availability / needs of home health and medical equipment. Patient is requesting a walker with a seat. CM looked back at previous admission and [employer] is the preferred DME company for his insurance. Rollator has been ordered on previous visit and patient has a $50.00 co pay. CM explained this to patient. Patient wishes to resume care with [facility] . Patient states he will have his family drive him home upon discharge. D/C IMM signed and DELVIN for [facility] 11/03/19 @ 7131. CM will continue to follow and assist as needed with discharge planning / needs. CM contacted [facility] nurse secured entrance monitor of discharge plan for today and will fax discharge summary. [employer] Inspector: Xena Florez DCPIA - Discharge Planning Initial Assessment Updated by [email or web address]: Xena Florez on 11/03/19 4:14 pm * Is the patient Alert and Oriented? Yes * How many steps to enter\exit or inside your home? * PCP [facility] * [facility] * Preadmission Environment Home with Family * ADLs Independent * List name and contact numbers for known caregivers / representatives who currently or will assist patient after discharge: CRISTIANE HERRON - DAUGHTER - [phone] CLIFF Buchanan SON - [phone] * Verbal permission to speak to the caregivers and representatives has been obtained from the patient. Yes * Community resources currently utilized Home Health * Please name any agencies selected above. [facility] * Additional services required to return to the preadmission environment? No * Can the patient safely return to the preadmission environment? Yes * Has this patient been hospitalized within the prior 30 days at any hospital? Yes Coverage Notice Reviewer: [email or web address] Dewayne Florez Notice Issued Date-Time: 11/03/2019 13:56 Notice Type: IM Discharge Notice Notice Delivered To: Patient Relationship to Patient: Self Radiographer Mammographer Name: Delivery Method: HAND - Hand Delivered Lorie Days: Prior Verbal Notification: Recipient Understood Notice: Yes Recipient Signature: Yes Med Rec Note Co-signed by Attending: Coverage Notice Comment: Reviewer: [email or web address] Florez Notice Issued Date-Time: 11/03/2019 13:56 Notice Type: Patient Choice Letter Notice Delivered To: Patient Relationship to Patient: Self Radiographer Mammographer Name: Delivery Method: HAND - Hand Delivered Lorie Days: Prior Verbal Notification: Recipient Understood Notice: Yes Recipient Signature: Yes Med Rec Note Co-signed by Attending: Coverage Notice Comment: RESUME CARE WITH [facility] Last DP export: 11/03/19 3:26 p Patient Name: ALISA HOPSON Page 24328 at 1920 All edits/amendments must be made on the electronic document DICTATION DATE: 11/03/191919 SENIOR EDITOR: CARI 11/03/191919 RPT#: [id number] DC DATE:11/03/19 STATUS: DIS IN [facility] [address] [place] [address] END OF REPORT
--- NOTE | 2019-11-03 19:27 | MORECARE ---
CASE MANAGEMENT DISCHARGE SUMMARY PATIENT: ALISA HOPSON UNIT: [id number] ADM DATE: 10/31/19 AGE: 64 : 55 SEX: M ROOM/BED: D.2103 AUTHOR: MELI,DOC PHYSICIAN: REFERRING PHYSICIAN: RIGO NICK MD DATE OF SERVICE: 11/03/19 Discharge Plan Patient Name: ALISA HOPSON Facility: [facility]:[place] : 1955 Planned Disposition: Home with Home Health Anticipated Discharge Date: Discharge Date: 11/03/2019 Expected LOS: Initial Reviewer: [id number] Initial Review Date: 11/03/2019 Generated: 11/03/19 8:26 pm Comments DCP- Discharge Planning Updated by [email or web address]: Xena Florez on 11/03/19 3:[address] Patient Name: ALISA HOPSON Admission Status: ER Accout number: [id number] Admission Date: 10-31-2019 : 1955 Admission Diagnosis: Attending: RIGO NICK Current LOS: 3 Anticipated DC Date: Planned Disposition: Home with Home Health Primary Insurance: [employer] CHOICE PPO MCR ADVANT Discharge Planning Comments: CM met with patient at bedside after explaining CM role and obtaining verbal consent. Patient lives at home with his daughter where he is independent with his care and plans to return there upon discharge. Patient feels this would be a safe discharge. CM discussed availability / needs of home health and medical equipment. Patient is requesting a walker with a seat. CM looked back at previous admission and [employer] is the preferred DME company for his insurance. Rollator has been ordered on previous visit and patient has a $50.00 co pay. CM explained this to patient. Patient wishes to resume care with [facility] . Patient states he will have his family drive him home upon discharge. D/C IMM signed and DELVIN for [facility] 11/03/19 @ 0796. CM will continue to follow and assist as needed with discharge planning / needs. CM contacted [facility] nurse litigation support analyst of discharge plan for today and will fax discharge summary. Field Examiner: Xena Florez DCPIA - Discharge Planning Initial Assessment Updated by [email or web address]: Xean Florez on 11/03/19 4:14 pm * Is the patient Alert and Oriented? Yes * How many steps to enter\exit or inside your home? * PCP [facility] * [facility] * Preadmission Environment Home with Family * ADLs Independent * List name and contact numbers for known caregivers / representatives who currently or will assist patient after discharge: CRISTIANE HERRON - DAUGHTER - [phone] CLIFF Buchanan SON - [phone] * Verbal permission to speak to the caregivers and representatives has been obtained from the patient. Yes * Community resources currently utilized Home Health * Please name any agencies selected above. [facility] * Additional services required to return to the preadmission environment? No * Can the patient safely return to the preadmission environment? Yes * Has this patient been hospitalized within the prior 30 days at any hospital? Yes External Providers External Provider: [facility] Next Contact Date: Service Request Date: Service Type: Resolution: Reviewer: Comments: Coverage Notice Reviewer: [id number] Dewayne Florez Notice Issued Date-Time: 11/03/2019 13:56 Notice Type: IM Discharge Notice Notice Delivered To: Patient Relationship to Patient: Self Compressor Station Operator Name: Delivery Method: HAND - Hand Delivered Lorie Days: Prior Verbal Notification: Recipient Understood Notice: Yes Recipient Signature: Yes Med Rec Note Co-signed by Attending: Coverage Notice Comment: Reviewer: [id number] Dewayne Florez Notice Issued Date-Time: 11/03/2019 13:56 Notice Type: Patient Choice Letter Notice Delivered To: Patient Relationship to Patient: Self Compressor Station Operator Name: Delivery Method: HAND - Hand Delivered Lorie Days: Prior Verbal Notification: Recipient Understood Notice: Yes Recipient Signature: Yes Med Rec Note Co-signed by Attending: Coverage Notice Comment: RESUME CARE WITH [facility] Last DP export: 11/03/19 6:20 p Patient Name: ALISA HOPSON Page 19687 at 1927 All edits/amendments must be made on the electronic document DICTATION DATE: 11/03/191925 SILK SOAKER: CARI 11/03/191925 RPT#: [id number] DC DATE:11/03/19 STATUS: DIS IN [facility] [address] [place] [address] END OF REPORT
== END 2019-11-03 16:59 | disposition home health service (06) | DRG 64 ==
LOC: D.ER 16:17 → D.M2 18:21
PROVIDERS: Emergency Medicine; ADMIT Internal Medicine Nephrology; ATTEND Internal Medicine Nephrology
DX: I63.9 Cerebral infarction, unspecified (principal); G93.41 Metabolic encephalopathy; N17.9 Acute kidney failure, unspecified; R40.2244 Coma scale, best verbal response, confused conversation, 24 hours or more after hospital admission; R40.2364 Coma scale, best motor response, obeys commands, 24 hours or more after hospital admission; R40.2134 Coma scale, eyes open, to sound, 24 hours or more after hospital admission; I12.9 Hypertensive chronic kidney disease with stage 1 through stage 4 chronic kidney disease, or unspecified chronic kidney disease; N18.9 Chronic kidney disease, unspecified; I25.10 Atherosclerotic heart disease of native coronary artery without angina pectoris

== ENCOUNTER 2020-02-22 15:58 | Inpatient (IN) | payer MEDICARE, OTHER ==
[~2020-02-22] VITALS: Ht 180.3 cm; Wt 90.7 kg
[2020-02-22 17:21] LABS: HEMOGLOBIN 15.6 g/dL (13.5-17.5); LYMPHOCYTES 18.8 % (15-50); MCH 27.7 pg (26.0-34.0); MCHC 31.8 g/dL (31.0-37.0); MEAN PLATELET VOLUME 12.1 fL (7.4-10.4); NEUTROPHILS 73.9 % (40-80); RBC 5.63 10x6/uL (4.20-6.10); RDW 14.4 % (11.5-14.5); WBC 11.8 10x3/uL (4.8-10.8)
[2020-02-22 17:22] LABS: PLATELET COUNT 261 10x3/uL (130-400)
[2020-02-22 17:26] LABS: APTT 32.1 SECONDS (22.8-39.4); INR 0.99 (0.85-1.17)
[2020-02-22 17:32] LABS: CALCIUM 8.7 mg/dL (8.5-10.1); CARBON DIOXIDE 26.9 mmol/L (21.0-32.0); POTASSIUM - SERUM 4.9 mmol/L (3.5-5.1)
[2020-02-22 17:38] LABS: ALBUMIN 3.6 g/dL (3.4-5.0); BILIRUBIN - TOTAL 0.31 mg/dL (0.2-1.3); PROTEIN - SERUM 7.3 g/dL (6.4-8.2)
--- NOTE | 2020-02-22 18:00 | NUR ---
PT LEFT WITH MRI FOR SCAN
[2020-02-22 22:43] VITALS: BP 156/80; BMI 22.3; BMI 24.0
--- NOTE | 2020-02-22 23:08 | NUR ---
RECIEVED REPORT FROM JOYCELYN VALADEZ IN ER. ARRIVED TO FLOOR IN W/C. TRANSFERED SELF TO BED. ALERT AND OIRNTED X4. UP AD RICHELLE TO B/R. IV TO RT FA. DENIES ANY NEEDS AT THIS TIME. ASSESSMENT COMPLETED.
[2020-02-23 00:18] VITALS: BP 131/59
--- NOTE | 2020-02-23 02:12 | NUR ---
RESTING IN BED WITH EYES CLOSED. NO S/S OF DISTRESS OBSERVED. NS INFUSING AT 100CC/HR.
[2020-02-23 03:50] VITALS: BP 144/60
[2020-02-23 07:02] LABS: HEMATOCRIT 44.4 % (42.0-54.0); HEMOGLOBIN 14.1 g/dL (13.5-17.5); LYMPHOCYTES 24.8 % (15-50); MCH 28.1 pg (26.0-34.0); MCHC 31.8 g/dL (31.0-37.0); MCV 88.4 fL (80.0-100.0); MEAN PLATELET VOLUME 11.3 fL (7.4-10.4); NEUTROPHILS 67.9 % (40-80); PLATELET COUNT 216 10x3/uL (130-400); RBC 5.02 10x6/uL (4.20-6.10); RDW 14.5 % (11.5-14.5); WBC 12.8 10x3/uL (4.8-10.8)
--- NOTE | 2020-02-23 07:27 | NUR ---
PT ALERT AND ORIENTED, WHEN I FIRST ENTERED ROOM HE WAS LYING ON THE BED WITH COVERS PULLED OVER HIS HEAD. PT IS COMPLAINING OF HIS SKIN BEIUNG DISCOLORED (LIVER SPOTS), AND REQUESTING MEDICATION TO FIX THAT. WILL DISCUSS WITH CHIEF MECHANICAL ENGINEER WHEN SHE ROUNDS. NO OTHER COMPLAINTS OR CONCERNS AT THIS TIME. CL IN REACH, SRX2.
[2020-02-23 07:46] LABS: ALBUMIN 2.9 g/dL (3.4-5.0); ANION GAP 12.9 mmol/L (8-16); BILIRUBIN - TOTAL 0.35 mg/dL (0.2-1.3); CALCIUM 8.2 mg/dL (8.5-10.1); CARBON DIOXIDE 23.2 mmol/L (21.0-32.0); CREATININE - SERUM 1.6 mg/dL (0.6-1.3); POTASSIUM - SERUM 5.1 mmol/L (3.5-5.1); PROTEIN - SERUM 5.9 g/dL (6.4-8.2)
[2020-02-23 08:06] VITALS: BP 154/72
--- NOTE | 2020-02-23 09:35 | NUR ---
PT ALERT AND OREINTED, NO MEDS TO GIVE AT THIS TIME. CL IN REACH, SRX.2
[2020-02-23 12:08] VITALS: BP 146/79
--- NOTE | 2020-02-23 14:13 | NUR ---
I have reviewed this patient and I concur with the Shift Assessment completed by the Licensed Practical Nurse today this shift.
[2020-02-23 15:26] LABS: PLT FUNCT.(P2Y12) PLAVIX 182 PRU (194-418)
[2020-02-23 15:43] VITALS: BP 158/79
[2020-02-23 17:18] LABS: BILIRUBIN NEGATIVE (NEGATIVE); GLUCOSE NEGATIVE (NEGATIVE); KETONE NEGATIVE (NEGATIVE); NITRITE NEGATIVE (NEGATIVE); UROBILINOGEN NORMAL (NORMAL)
[2020-02-23 17:19] LABS: EPITHELIAL CELLS NSEEN /hpf (0-5); RED CELLS - URINE RARE /hpf (0-5); WHITE CELLS - URINE NSEEN /hpf (NEGATIVE)
--- NOTE | 2020-02-23 18:18 | NUR ---
PT AWAKE AND ORIENTED, SEEMS ALMSOT CONFUSED BUT ANSWERS QUESTIONS APPROPRIATELY. CL INR EACH, SRX2. NO COMPLINTS OR CONCERNS AT THIS TIME.
--- NOTE | 2020-02-23 19:26 | NUR ---
RECEIVED LAYING IN BED WITH EYES CLOSED. AROUSES TO TOUCH. VERY NISQUALLY. IV TO LT FA WITH NS AT 100CC/HR. UP AD RICHELLE. DENIES ANY NEEDS AT THIS TIME.
[2020-02-23 20:00] VITALS: BP 141/61
[2020-02-24 00:01] VITALS: BP 138/80
[2020-02-24 05:24] LABS: ANION GAP 10.5 mmol/L (8-16); CALCIUM 8.1 mg/dL (8.5-10.1); CARBON DIOXIDE 27.7 mmol/L (21.0-32.0); CREATININE - SERUM 1.7 mg/dL (0.6-1.3); POTASSIUM - SERUM 5.2 mmol/L (3.5-5.1)
[2020-02-24 06:11] LABS: HEMATOCRIT 43.4 % (42.0-54.0); HEMOGLOBIN 13.7 g/dL (13.5-17.5); LYMPHOCYTES 25.6 % (15-50); MCH 28.3 pg (26.0-34.0); MCHC 31.6 g/dL (31.0-37.0); MCV 89.7 fL (80.0-100.0); MEAN PLATELET VOLUME 11.2 fL (7.4-10.4); NEUTROPHILS 68.7 % (40-80); PLATELET COUNT 244 10x3/uL (130-400); RBC 4.84 10x6/uL (4.20-6.10); RDW 14.2 % (11.5-14.5); WBC 14.1 10x3/uL (4.8-10.8)
--- NOTE | 2020-02-24 07:05 | NUR ---
PT RESTING COMFORTABLY WHEN WE ENTERED FOR BEDSIDE, DID NOT WAKE WE TALKED. BREATHS EVEN, REGULAR AND UNLABORED. NO SIGNS OR SYMPTOMS OF ACUTE DISTRESS NOTED AT THIS TIME. CL IN REACH, SRX2.
--- NOTE | 2020-02-24 08:29 | NUR ---
PT AWAKE AND ORIENTED, TOOK MEDICATIONS WITHOUT COMPLICATIONS, C/O ITCHYNESS AND WANTS RASH MEDICATIONS. NO RASH SEEN. CL IN REACH, SRX2.
[2020-02-24 09:09] VITALS: BP 116/66
--- NOTE | 2020-02-24 10:12 | NUR ---
PTS DAUGHTER CALLED, I ASKED ABOUT THE PTS CLAIMED RASH AND ITCHYNESS, IF SHE KNEW WHAT HE WAS TALKING ABOUT. DAUGHTER STATES, "OH YEAH! I FORGOT TO TELL YOU GUYS. WE THINK HE HAS SCABIES". I ONCE AGAIN OBSERVED THE PTS SKIN MAKING SURE I DID N'T MISS ANY SIGNS OF A RASH BUT NONE WERE NOTED. WILL REPORT TO THE DOCTOR. CL IN REACH, SRX2.
[2020-02-24 12:00] VITALS: BP 117/61
[2020-02-24 13:23] VITALS: Ht 180.3 cm; Wt 90.7 kg
--- NOTE | 2020-02-24 14:59 | NUR ---
PT IS AGITATED AND WANTS TO KNOW WHEN HE'LL GET HIS KIN ISSUES FIXED. I SEE NO RASH, PT COMPLAINTS OR ITCHING AND IRRITATION BUT OFFENDING AGENT IS NOT VISABLE TO MY EYES. PT STATES THIS IS THE WHOLE REASON HE CAME IN, I REMINDED HIM HE ACTUALLY CAME IN BECAUSE OF HIS STROKE SYMTPOMS. PT STATES "OH YEAH I FORGOT ABOUT THAT". CL INR EACH,SRX2. WILL CONT. TO MONITOR.
--- NOTE | 2020-02-24 16:29 | NUR ---
OT NOTE: PT COMPLETED SIT TO STAND WITH CGA. PT COMPLETED STANDING WHILE WEIGHT SHIFTING WITH CGA. PT COMLETED FACE AND HAND HYGIENE. PT STATED HE IS ITCHING . NURSING AWARE. [id number] THANK YOU,NAY LEON
--- NOTE | 2020-02-24 19:29 | NUR ---
PT LYING IN BED WITH EYES OPEN WATCHING TV. NO SIGNS OF DISTRESS NOTED. RESPIRATIONS EVEN AND UNLABORED. CALL LIGHT WITH IN REACH NO COMPLAINTS AT THIS TIME. WILL CONTINUE TO MONITOR
[2020-02-24 20:48] VITALS: BP 157/80
[2020-02-25] VITALS (7 sets, daily range): BP systolic 146–168; BP diastolic 72–95
[2020-02-25 05:28] LABS: HEMATOCRIT 41.9 % (42.0-54.0); HEMOGLOBIN 13.2 g/dL (13.5-17.5); LYMPHOCYTES 21.4 % (15-50); MCHC 31.5 g/dL (31.0-37.0); MEAN PLATELET VOLUME 11.5 fL (7.4-10.4); NEUTROPHILS 70.6 % (40-80); PLATELET COUNT 204 10x3/uL (130-400); RBC 4.71 10x6/uL (4.20-6.10); RDW 14.2 % (11.5-14.5); WBC 13.1 10x3/uL (4.8-10.8)
[2020-02-25 05:36] LABS: ANION GAP 10.4 mmol/L (8-16); CALCIUM 8.2 mg/dL (8.5-10.1); CARBON DIOXIDE 26.7 mmol/L (21.0-32.0); CREATININE - SERUM 1.9 mg/dL (0.6-1.3); POTASSIUM - SERUM 5.1 mmol/L (3.5-5.1)
--- NOTE | 2020-02-25 07:36 | MORECARE ---
CASE MANAGEMENT DISCHARGE SUMMARY PATIENT: ALISA HOPSON UNIT: [id number] ADM DATE: 02/22/20 AGE: 65 : 55 SEX: M ROOM/BED: D.2137 AUTHOR: ANA GARRISON PHYSICIAN: REFERRING PHYSICIAN: RIGO NICK MD DATE OF SERVICE: 02/25/20 Discharge Plan Patient Name: ALISA HOPSON [facility] [facility] 1955 Planned Disposition: Home with Home Health Anticipated Discharge Date: Discharge Date: Expected LOS: Initial Reviewer: [email or web address] Initial Review Date: 02/21/2020 Generated: 02/25/20 8:36 am Patient Name: ALISA HOPSON Page 82612 at 0736 All edits/amendments must be made on the electronic document DICTATION DATE: 02/25/2036 OFFICE AGENT: CARI 02/25/20 0736 RPT#: [id number] DC DATE: STATUS: ADM IN [facility] [address] [place] [address] END OF REPORT
--- NOTE | 2020-02-25 07:44 | MORECARE ---
CASE MANAGEMENT DISCHARGE SUMMARY PATIENT: ALISA HOPSON UNIT: [id number] ADM DATE: 02/22/20 AGE: 65 : 55 SEX: M ROOM/BED: D.2137 AUTHOR: ANA GARRISON PHYSICIAN: REFERRING PHYSICIAN: RIGO NICK MD DATE OF SERVICE: 02/25/20 Discharge Plan Patient Name: ALISA HOPSON [facility] [facility] 1955 Planned Disposition: Home with Home Health Anticipated Discharge Date: Discharge Date: Expected LOS: Initial Reviewer: [email or web address] Initial Review Date: 02/21/2020 Generated: 02/25/20 8:43 am DCPIA - Discharge Planning Initial Assessment Updated by [email or web address]: Anahy Shah on 02/25/20 7:37 am * Is the patient Alert and Oriented? No * How many steps to enter\exit or inside your home? 0/0 * PCP ELENA VEGA APN * Pharmacy [facility] * Preadmission Environment Home with Family * List name and contact numbers for known caregivers / representatives who currently or will assist patient after discharge: CRISTIANE [phone] CLIFF [phone] * Verbal permission to speak to the caregivers and representatives has been obtained from the patient. Yes * Community resources currently utilized None * Additional services required to return to the preadmission environment? Yes * Can the patient safely return to the preadmission environment? Yes * Has this patient been hospitalized within the prior 30 days at any hospital? No Last DP export: 02/25/20 6:36 a Patient Name: ALISA HOPSON Page [phone] at 0744 All edits/amendments must be made on the electronic document DICTATION DATE: 02/25/20742 INFORMATION TECHNOLOGY ASSISTANT: CARI 02/25/20 0743 RPT#: [id number] DC DATE: STATUS: ADM IN [facility] [address] [place] [address] END OF REPORT
--- NOTE | 2020-02-25 15:40 | NUR ---
I HAVE REVIEWED THE CHART FOR THIS PATIENT AND CONCUR WITH THE ASSESSMENT COMPLETED BY THE BRIM RAISER FOR THIS SHIFT. PATIENT IS CURRENTLY LYING IN BED WITH ATTENTION TOWARD TELEVISION. PATIENT DENIES ANY NEEDS AT THIS TIME. NO DISTRESS.
--- NOTE | 2020-02-25 15:46 | NUR ---
OT NOTE: PT COMPLETED BED MOB TASKS WITH CGA. PT COMPLETED SUPINE TO SIT WITH CGA/MIN A. PT COMPLETED HAND HYGIENE WITH SETUP. [phone] THANK YOU,NAY LEON
--- NOTE | 2020-02-25 19:30 | NUR ---
PT IN BED, AAO X 3, RESP EVEN AND UNLABORED, NO DISTRESS NOTED, CL IN REACH, SR UP X 2.
--- NOTE | 2020-02-26 00:51 | NUR ---
I have reviewed this patient and I concur with the Shift Assessment completed by the Licensed Practical Nurse today this shift.
[2020-02-26 04:52] VITALS: BP 136/79
[2020-02-26 05:11] LABS: BASOPHILS 0.2 % (0-2); EOSINOPHILS 3.2 % (0-7); HEMOGLOBIN 12.6 g/dL (13.5-17.5); IMMATURE GRANULOCYTES 0.3 % (0-5); LYMPHOCYTES 24.3 % (15-50); MCH 27.8 pg (26.0-34.0); MCHC 30.7 g/dL (31.0-37.0); MCV 90.3 fL (80.0-100.0); MEAN PLATELET VOLUME 11.5 fL (7.4-10.4); MONOCYTES 6.7 % (2-11); NEUTROPHILS 65.3 % (40-80); PLATELET COUNT 218 10x3/uL (130-400); RBC 4.54 10x6/uL (4.20-6.10); RDW 14.7 % (11.5-14.5); WBC 12.9 10x3/uL (4.8-10.8)
[2020-02-26 05:24] LABS: CALCIUM 7.8 mg/dL (8.5-10.1); CARBON DIOXIDE 25.9 mmol/L (21.0-32.0); CREATININE - SERUM 1.7 mg/dL (0.6-1.3); POTASSIUM - SERUM 4.9 mmol/L (3.5-5.1)
[2020-02-26 08:58] VITALS: BP 165/68
--- NOTE | 2020-02-26 12:59 | NUR ---
I have reviewed this patient and I concur with the Shift Assessment completed by the Licensed Practical Nurse today this shift.
[2020-02-26 13:21] VITALS: BP 148/77
[2020-02-26] MEDS ORDERED: EFFIENT10 MG PO (14:04)
--- NOTE | 2020-02-26 15:42 | MORECARE ---
CASE MANAGEMENT DISCHARGE SUMMARY PATIENT: ALISA HOPSON UNIT: [id number] ADM DATE: 02/22/20 AGE: 65 : 55 SEX: M ROOM/BED: D.2137 AUTHOR: ANA GARRISON PHYSICIAN: REFERRING PHYSICIAN: RIGO NICK MD DATE OF SERVICE: 02/26/20 Discharge Plan Patient Name: ALISA HOPSON [facility] [facility] 1955 Planned Disposition: Home with Home Health Anticipated Discharge Date: Discharge Date: Expected LOS: Initial Reviewer: [email or web address] Initial Review Date: 02/21/2020 Generated: 02/26/20 4:42 pm DCPIA - Discharge Planning Initial Assessment Updated by [email or web address]: Anahy Shah on 02/25/20 7:37 am * Is the patient Alert and Oriented? No * How many steps to enter\exit or inside your home? 0/0 * PCP ELENA VEGA APN * Pharmacy [facility] * Preadmission Environment Home with Family * List name and contact numbers for known caregivers / representatives who currently or will assist patient after discharge: CRISTIANE [phone] CLIFF [phone] * Verbal permission to speak to the caregivers and representatives has been obtained from the patient. Yes * Community resources currently utilized None * Additional services required to return to the preadmission environment? Yes * Can the patient safely return to the preadmission environment? Yes * Has this patient been hospitalized within the prior 30 days at any hospital? No External [facility]iders [facility] Next Contact Date: Service Request Date: Service Type: Resolution: Reviewer: Comments: Last DP export: 02/25/20 6:44 a Patient Name: ALISA HOPSON Page [phone] at 1542 All edits/amendments must be made on the electronic document DICTATION DATE: 02/26/201541 COMMERCIAL FRONT LOAD DRIVER: CARI 02/26/20 154 RPT#: [id number] DC DATE: STATUS: ADM IN [facility] [address] [place] [address] END OF REPORT
--- NOTE | 2020-02-26 16:01 | MORECARE ---
CASE MANAGEMENT DISCHARGE SUMMARY PATIENT: ALISA HOPSON UNIT: [id number] ADM DATE: 02/22/20 AGE: 65 : 55 SEX: M ROOM/BED: D.4377 AUTHOR: ANA GARRISON PHYSICIAN: REFERRING PHYSICIAN: RIGO NICK MD DATE OF SERVICE: 02/26/20 Discharge Plan Patient Name: ALISA HOPSON Facility[facility]:[place] : 1955 Planned Disposition: Home with Home Health Anticipated Discharge Date: Discharge Date: Expected LOS: Initial Reviewer: [email or web address] Initial Review Date: 02/21/2020 Generated: 02/26/20 5:01 pm Comments DCP- Discharge Planning Updated by [email or web address]: Anahy Shah on 02/26/20 2:[address] Patient Name: ALISA HOPSON Admission Status: ER Accout number: [id number] Admission Date: 02-22-2020 : 1955 Admission Diagnosis:WEAKNESS Attending: RIGO NICK Current LOS: 4 Anticipated DC Date: Planned Disposition: Home with Home Health Primary Insurance: [employer] CHOICE PPO MCR ADVANT Discharge Planning Comments: LATE ENTRY FROM 02/25/2020 AT 1420 CM met with patient to complete initial dc planning assessment. CM educated patient on the CM role the pt is unable to provide verbal consent related to confusion. Called pt caregiver, Mr. Hopson's daughter, Breanne at [phone]. CM verified patient's address with Breanne. Breanne stated that Mr. Hopson uses a cane to ambulate but has became weaker, and feels he may benefit from home health. DELVIN signed via phone for [facility]. Called Ray at [facility] at [phone]. Cm faxed clinicals for referral. At discharge patient plans to return home with family, and feels this is a safe discharge. Transportation provider at discharge will be Breanne or Reba Hopson at . DC IMM explained via phone. Breanne verbalized understanding. IMM will be sent by certified mail with return receipt requested. CM will continue to follow and will assist as needed with dc plans/needs. Plate Slitter And Inspector: Anahy Shah MSN,RN,CM DCPIA - Discharge Planning Initial Assessment Updated by [id number]: Anahy Shah on 02/25/20 7:37 am * Is the patient Alert and Oriented? No * How many steps to enter\exit or inside your home? 0/0 * PCP ELENA VEGA APN * Pharmacy [facility] * Preadmission Environment Home with Family * List name and contact numbers for known caregivers / representatives who currently or will assist patient after discharge: BREANNE [phone] CLIFF [phone] * Verbal permission to speak to the caregivers and representatives has been obtained from the patient. Yes * Community resources currently utilized None * Additional services required to return to the preadmission environment? Yes * Can the patient safely return to the preadmission environment? Yes * Has this patient been hospitalized within the prior 30 days at any hospital? No Last DP export: 02/26/20 2:42 p Patient Name: ALISA HOPSON Page [phone] at 1601 All edits/amendments must be made on the electronic document DICTATION DATE: 02/26/20 1601 HAND BINDER CUTTER: CARI 02/26/20 1601 RPT#: [id number] DC DATE: STATUS: ADM IN [facility] [address] [place] [address] END OF REPORT
--- NOTE | 2020-02-26 16:15 | NUR ---
PIV REMOVED WITH CATHETER TIP FULLY INTACT. TELEMETRY REMOVED AND RETURNED. PT SIGNED PROPER DISCHARGE INSTRUCTIONS AND REMOVED ALL VALUABLES FROM THE ROOM.
--- NOTE | 2020-02-26 17:35 | NUR ---
OT NOTE: PT COMPLETED SUPINE TO SIT WITH SBA. PT COMPLETED SIT TO STAND WITH CGA. PT COMPLETED BUE AROM EXS AT EOB WITH SPV. PT COMPLETED DELON/DOFF SOCKS WITH SBA AT EOB. [phone] THANK YOU,NAY LEON
== END 2020-02-26 16:16 | disposition home health service (06) | DRG 65 ==
LOC: D.ER 15:58 → D.M2 18:59
PROVIDERS: Family Medicine; ADMIT Internal Medicine Nephrology; ATTEND Internal Medicine Nephrology
DX: I63.81 Other cerebral infarction due to occlusion or stenosis of small artery (principal); N17.9 Acute kidney failure, unspecified; G81.91 Hemiplegia, unspecified affecting right dominant side; K21.9 Gastro-esophageal reflux disease without esophagitis; I25.10 Atherosclerotic heart disease of native coronary artery without angina pectoris; E78.5 Hyperlipidemia, unspecified; E87.5 Hyperkalemia; R40.2133 Coma scale, eyes open, to sound, at hospital admission; R40.2363 Coma scale, best motor response, obeys commands, at hospital admission; R40.2244 Coma scale, best verbal response, confused conversation, 24 hours or more after hospital admission

== ENCOUNTER 2020-06-07 16:19 | Inpatient (IN) | payer MEDICARE, OTHER ==
[~2020-06-07] VITALS: Ht 180.3 cm; Wt 72.6 kg
--- NOTE | ~2020-06-07 | HEMODYNAMI ---
PATIENT:ALISA HOPSON MEDICAL RECORD: [id number] : 55 [facility] [id number] ADMISSION DATE: 06/07/20 Generatedon:06/11/202014:10 Patient name: ALISA HOPSON Patient #: [id number] SSN: [id number] : 1955 Date of study: 06/11/2020 Page: Of Hemodynamic Procedure Report Patient Data Patient Demographics Procedure consent was obtained First Name: ALISA Gender: Male Last Name: MARK ANTHNOY : 1955 Middle Initial: ZULY Age: 65 year(s) Patient #: [id number] Race: SSN: [id number] Additional ID: [id number] Contact details Address: [address] [place] [address] State: [place] City: [place] Zip code: [address] Past Medical History Allergies: No known allergies Admission Admission Data Admission Date: 06/07/2020 Admission Time: 19:45 Arrival Date: 06/11/2020 Arrival Time: 0:00 Admit Source: Other Insurance Payor: Private Room #: D.2204 health insurance [facility] #: [id number] Height (in.): 71 BSA: 1.92 (m2) Height (cm.): 180.34 BMI: 22.31 (kg/m2) Weight (lbs.): 159.99 Weight (kg.): 72.57 Lab Results Lab Result Date: 06/11/2020 Lab Result Time: 0:00 Biochemistry Name Units Result Min Max BUN mg/dl 31 --(----)-* 7 18 Creatinine mg/dl 2.2 --(----)-* 0.6 1.3 eGFR ml/min 32 *-(----)-- 90 120 NONAFRICAN CBC Name Units Result Min Max Hematocrit % 43.3 --(*---)-- 42 54 Hemoglobin g/dl 13.5 --(*---)-- 13.5 17.5 Procedure Procedure Types Cath Procedure Diagnostic Procedure LHC LHC w/Coronaries w/Grafts RICARDO Procedure Description Procedure Date Procedure Date: 06/11/2020 Procedure Start Time: 13:56 Procedure End Time: 14:08 Procedure Staff Name Function Luis Alfredo Bryant MD Performing Physician Shasta Minaya RN Nurse Mitzi Franks RT Monitor Giulia Lomas RT Scrub Caleb Eugene CABLE INSTALLATION MANAGER Additional personnel Chintan Duarte Board Runner Daniel Cisneros MD Additional personnel Indication Syncope Procedure Data Cath Procedure Fluoroscopy Diagnostic fluoroscopy Total fluoroscopy Time: 2 time: 2 min min Diagnostic fluoroscopy Total fluoroscopy dose: 256 dose: 256 mGy mGy Contrast Material Contrast Material Type Amount (ml) Isovue 300 64 Entry Location Entry Primary Successful Side Size Upsize Upsize Entry Closure Succes sful Closure Location (Fr) 1 (Fr) 2 (Fr) Remarks Device Remarks Femoral Right 5 Fr Exoseal artery Estimated blood loss: 5 ml Diagnostic catheters Device Type Used For End Catheter Placement MULTIPACK JL 4.0 5Fr Left Coronary catheter Angiography MULTIPACK 3DRC 5Fr Procedure catheter MULTIPACK Pigtail 5 Fr LV Angiography catheter Procedure Complications No complications Procedure Medications Medication Administration Route Dosage Oxygen etCO2 Nasal cannula 2 l/min Hurricaine Congress P.O. 1 Sprays Refer to Anesthesia Notes for Sedation Medications Heparin Flush Bag added to field 2 bags (1000units/500ml NS) 0.9% NaCl I.V. 100 ml/hr Hemodynamics Rest BSA: 1.92 (m2) HGB: 13.5 (g/dl) O2 Consumption: Estimated: 220.62 (ml/min) O2 Co nsumption indexed: Estimated:114.91 (ml/min/m) Heart Rate: 66 (bpm) Pressure Samples Time Site Value (mmHg) Purpose Heart Use Rate(bpm) 14:02 LV 119/16,18 Snapshot 68 Snapshots Pre Cath Intra NCS Post Cath Vital Signs Time Heart Resp SPO2 etCO2 NIBP (mmHg) Rhythm Pain Sedation Rate (ipm) (%) (mmHg) Status Level (bpm) 13:22:17 61 18 96 42.3 140/72(100) NSR 0 (11) 10(A) , No pain 13:26:39 67 22 97 33.4 137/58(85) NSR 0 (11) 10(A) , No pain 13:30:53 63 26 94 17.8 130/73(94) NSR 0 (11) 10(A) , No pain 13:36:07 82 22 98 20.8 148/99(126) NSR 0 (11) 9(A) , No pain 13:40:25 74 39 100 20 142/80(105) NSR 0 (11) 9(A) , No pain 13:45:21 69 12 98 24.4 134/75(97) NSR 0 (11) 9(A) , No pain 13:49:35 65 33 98 24.4 114/66(81) NSR 0 (11) 9(A) , No pain 13:53:43 62 33 98 23.7 112/65(78) NSR 0 (11) 9(A) , No pain 13:57:49 65 32 97 26.6 106/67(79) NSR 0 (11) 9(A) , No pain 14:01:55 68 33 98 28.1 122/66(80) NSR 0 (11) 9(A) , No pain 14:06:05 65 27 98 31.8 115/64(76) NSR 0 (11) 10(A) , No pain Medications Time Medication Route Dose Verified Delivered Reason Notes Eff ectiveness by by 13:19:52 Oxygen etCO2 2 Luis Alfredo Vegas used for Nasal l/min St Skyler Minaya RN procedure cannula 13:20:02 Hurricaine Congress P.O. 1 Luis Alfredo Vegas Per Sprays St Skyler Minaya RN physician 13:20:06 Refer to Luis Alfredo Vegas Anesthesia Notes St Skyler Minaya RN for Sedation MD Medications 13:47:53 Heparin Flush added 2 bags Luis Alfredo Vegas used for Bag to St Skyler Minaya RN procedure (1000units/500ml field STEPHENSON NS) 13:48:01 0.9% NaCl I.V. 100 Luis Alfredo Vegas Per ml/hr St Skyler Minaya RN physician Procedure Log Time Note 12:56:13 Informed consent obtained and on chart 12:56:32 Admit Source: Other 12:56:40 Procedure Status Urgent Heart Cath (IP). 12:56:42 Shasta Minaya RN sent for patient. Start room use. 12:56:44 Time tracking: Regular hours (M-F 7:00 - 5:00) 12:56:48 Plan of Care:Hemodynamics will remain stable., Cardiac rhythm will remain stable., Comfort level will be maintained., Respiratory function will remain adequate., Patient/ family verbilizes understanding of procedure., Procedure tolerated without complication., Recovers from procedure without complications.. 12:58:07 Family unavailable. 12:58:09 Patient NPO since Midnight. 12:58:56 Lab Result : eGFR NONAFRICAN 32 ml/min 12:58:56 Lab Result : Creatinine 2.2 mg/dl 12:58:56 Lab Result : BUN 31 mg/dl 12:58:56 Lab Result : Hematocrit 43.3 % 12:58:56 Lab Result : Hemoglobin 13.5 g/dl 12:59:02 Arrival Date: 06/11/2020 12:00:00 AM 12:59:04 Insurance Payor : Private health insurance 12:59:33 Patient Height : 71 inches 12:59:38 Patient Weight : 159.99 lbs 13:03:19 Indication : Syncope 13:03:42 Patient allergic to No known allergies 13:04:04 Use device set Femoral Dx 13:04:06 ACIST Syringe (47801) opened to sterile field. 13:04:07 Bag Decanter (2002S) opened to sterile field. 13:04:08 Medline Cath Pack ([id number]) opened to sterile field. 13:04:09 ACIST Hand Control (66893) opened to sterile field. 13:04:10 ACIST Manifold (62618) opened to sterile field. 13:04:11 DIAGNOSTIC Multipack 5Fr catheter set (BF5852) opened to sterile field. 13:04:12 Tegaderm 4 x 4 (1626W) opened to sterile field. 13:04:13 SHEATH 5FR Mecca (VQT527) opened to sterile field. 13:04:14 EMERALD Guide Wire (294-358) opened to sterile field. 13:10:39 Patient arrived from Med/Surg to CCL 2. Patient remains on bed/stretche r for procedure. 13:11:07 Warm blankets applied, and dom hugger turned on for patient comfort. 13:11:08 Correct patient and procedure confirmed by team. 13:11:09 ECG and BP/O2 sat monitors applied to patient. 13:11:25 H&P Date Dictated: 06/11/2020 Within 30 days and on chart., ER History o n chart.. 13:11:27 Pre-procedure instructions explained to patient. 13:11:28 Pre-op teaching completed and patient verbalized understanding. 13:11:35 Is the patient allergic to Iodine/contrast media? No. 13:11:42 Was the patient premedicated? Yes 13:16:13 Is patient on blood thinner?Yes 13:16:20 ACC The patient was administered the following blood thiners within the last 24 hours: ACCPlavix 13:16:26 Patient diabetic? No. 13:16:34 ----Pre-sedation anethsthesia assessment.---- 13:16:38 Previous problem with sedation/anesthesia? No ? 13:16:42 Snore? Yes 13:16:46 Sleep apnea? No 13:16:49 Deviated septum? Unknown 13:17:00 Opens mouth fully? Yes 13:17:05 Sticks out tongue? Yes 13:17:13 Airway obstruction? No ? 13:17:32 Dentures? No ? 13:17:34 - 13:17:41 Pre procedure: right dorsailis pedis pulse 1+ Palpable, but thready & weak; easily obliterated 13:19:32 Vital chart was started 13:19:52 Oxygen 2 l/min etCO2 Nasal cannula was administered by Shasta Minaya RN; used for procedure; Verbal order read back and verified. 13:20:02 Hurricaine Congress 1 Sprays P.O. was administered by Shasta Mniaya RN; Per physician; Verbal order read back and verified. 13:20:06 Refer to Anesthesia Notes for Sedation Medications was administered by Shasta Minaya RN; ; Verbal order read back and verified. 13:23:06 IV patent on arrival in left forearm with 0.9% NaCl at [facility]. 13:23:12 Lab results completed and on chart. 13:23:18 Risk of Mortality: 0.1 13:23:22 Risk of blood transfusion: 0.4 13:23:28 Risk of GARCIA: 6.1 13:25:21 IV Extension Set opened to sterile field. 13:32:04 Chintan Mendozas Decal Cutter present for RICARDO. 13:32:19 Daniel Cisneros MD present and monitoring patient for TIVA. 13:32:29 Physician arrived 13:32:30 --------ALL STOP TIME OUT------ 13:32:33 Final Timeout: patient, procedure, and site verified with staff and physician. All members of the team are in agreement. 13:32:45 Fire Safety Assessment: A--An alcohol-based skin anteseptic being used preoperatively., B--The operative or invasive procedure is being performed above the xiphoid process or in the oropharynx., C--Open oxygen or nitrous oxide is being used., D--An ESU, laser, or fiber-optic light is being used. 13:33:27 Physical assessment completed. ASA score P 4 - A patient with severe systemic disease that is a constant threat to life as per Daniel Cisneros MD. 13:34:16 Baseline sample Acquired. 13:34:22 Rhythm: sinus rhythm 13:34:25 Full Disclosure recording started 13:34:41 RICARDO started. 13:41:26 RICARDO completed. 13:47:53 Heparin Flush Bag (1000units/500ml NS) 2 bags added to field was administered by Shasta Minaya RN; used for procedure; Verbal order read back and verified. 13:48:01 0.9% NaCl 100 ml/hr I.V. was administered by Shasta Minaya RN; Per physician; Verbal order read back and verified. 13:53:25 PT TRANSFERED TO TABLE AND PREPPED AND DRAPPED IN STERILE FASHIION FOR C. 13:53:31 Right groin area was prepped with chlora-prep and draped in sterile fashion 13:53:34 Alarms reviewed by R. N. 13:53:35 Sharps counted by scrub and verified by R.N. 13:53:54 Sedation plan: TIVA Medication:Propofol 13:55:53 Final Timeout: patient, procedure, and site verified with staff and physician. All members of the team are in agreement. 13:55:57 Right groin site verified by team. 13:56:02 Fire Safety Assessment: A--An alcohol-based skin anteseptic being used preoperatively., C--Open oxygen or nitrous oxide is being used., D--An ESU, laser, or fiber-optic light is being used. 13:56:25 Physical assessment completed. ASA score P 4 - A patient with severe systemic disease that is a constant threat to life as per Daniel Cisneros MD. 13:56:32 3b) 30-44 Moderately reduced kidney function. 13:56:37 Maximum allowable contrast dose (3.7 X eGFR X 0.75)89 ml. 13:56:49 Procedure started. 13:56:56 Local anesthetic to right femoral artery with Lidocaine 2% by Luis Alfredo Holland MD.INITIAL ACCESS ONLY 13:57:45 A 5 Fr sheath was inserted into the Right Femoral artery 13:57:59 A MULTIPACK JL 4.0 5Fr catheter was advanced over the wire and used for Left Coronary Angiography. 13:59:19 LCA angiography performed. 13:59:25 Injector settings: Ml/sec: 3, Volume: 6, 13:59:34 Catheter removed. 13:59:42 A MULTIPACK 3DRC 5Fr catheter was advanced over the wire and used for Procedure. 14:00:25 RCA angiography performed. 14:00:40 Injector settings: Ml/sec: 3, Volume: 6, 14:01:35 JOHN to LAD angiography performed. 14:01:42 SVG to Circ occluded. 14:02:06 Catheter removed. 14:02:23 A MULTIPACK Pigtail 5 Fr catheter was advanced over the wire and used for LV Angiography. 14:02:46 LV gram done using CASPER 14:03:11 EF : 55 % 14:03:13 LV hemodynamics recorded. 14:03:15 Catheter removed. 14:03:32 EXOSEAL 5Fr (EX500) opened to sterile field. 14:03:54 Sheath removed intact; hemostasis achieved with Exoseal to the Right Femoral artery. 14:03:57 Procedure ended.(Physican Out) 14:04:04 Contrast amount:Isovue 300 64ml. 14:04:35 Maximum allowable dose exceeded? No. 14:04:37 Sharps counted by scrub and verified by R.N. 14:05:04 Fluoroscopy time 02.00 minutes. 14:05:11 Fluoroscopy dose: 256 mGy 14:05:11 Flurop Dose total: 256 14:05:21 Dose Area Product 83060 mGy/cm. 14:05:26 Insertion/operative site no bleeding no hematoma. 14:05:33 Post-op/insertion site Right Femoral artery dressed using a 4 x 4 and Tegaderm. 14:05:38 Post-procedure physical assessment completed. ASA score P 4 - A patient with severe systemic disease that is a constant threat to life as per Daniel Cisneros MD. 14:05:43 Post procedure rhythm: unchanged. 14:05:47 Estimated blood loss: 5 ml 14:05:49 Post procedure instruction explained to patient.Patient verbalizes understanding. 14:05:50 Patient needs reinforcement of post procedure teaching. 14:06:11 Procedure type changed to Cath procedure, Diagnostic procedure, LHC, LH C w/Coronaries w/Grafts, RICARDO 14:07:12 Procedure and supply charges have been captured, reviewed, submitted an d are correct. 14:07:53 Procedure Complication : No complications 14:07:57 Vital chart was stopped 14:07:59 [facility] Findings: mild to moderate CAD (<70%) 14:08:04 See physician's report for complete and final results. 14:08:27 Report given to Med II. 14:08:32 Patient transfered to Med II with Bed. 14:08:35 Procedure ended. 14:08:35 Full Disclosure recording stopped 14:08:43 End room use (Document Last) Device Usage Item Name Manufacture Quantity Catalog Hospital Part Current Minimal L ot# / Number Charge Number Stock Stock Serial# Code ACIST Acist 1 81255 386174 209577 075346 20 Syringe Medical (29536) Systems Inc Bag Microtek 1 640278 07601 441183 5 Decanter Medical Inc. () Medline Medline 1 [id number] 796320 41165 436902 5 Cath Pack ([id number]) ACIST Hand Acist 1 75652 321107 677037 925825 5 Control Medical (56655) Systems Inc ACIST Acist 1 07543 199943 579066 469729 5 Manifold Medical (28316) Systems Inc DIAGNOSTIC Cardinal 1 [id number] 706181 47043 498254 30 [facility] Health 5Fr catheter set (CW6320) Tegaderm 4 3M 1 1626W 445988 413085 503438 5 x 4 (1626W) SHEATH 5FR Terumo 1 [id number] 979718 936992 537444 5 Mecca (LBA446) EMERALD Cardinal 1 779-565 069220 963412 721396 5 Guide Wire Health (306-829) IV Hospira 1 85297-23 348480 78581 583783 5 Extension Set MULTIPACK Cardinal 1 922260 5 JL 4.0 5Fr Health catheter MULTIPACK Cardinal 1 477967 5 3DRC 5Fr Health catheter MULTIPACK Cardinal 1 971556 5 Pigtail 5 Health Fr catheter EXOSEAL 5Fr Cardinal 1 EX500 081662 084164 946787 10 (EX500) Health Signature Audit [place] Stage Time Signature Unsigned Intra-Procedure 06/11/2020 Mitzi 2:09:10 PM Tiny PLASENCIA(Melania) (CV) Intra-Procedure 06/11/2020 Shasta Minaya RN 2:09:37 PM Intra-Procedure 06/11/2020 Luis Alfredo Benito 2:10:12 PM Skyler STEPHENSON Signatures Performing Physician : Signature : Luis Alfredo Bryant MD Date : Time : Nurse : Shasta Minaya RN Signature : Date : Time : Monitor : Mitzi Signature : Tiny RT Date : Time : [facility] [address] [address]
[~2020-06-07 16:19] MED LIST changes: +EFFIENT10 MG PO
[2020-06-07 16:55] LABS: BASOPHILS 0.3 % (0-2); EOSINOPHILS 4.2 % (0-7); HEMATOCRIT 42.9 % (42.0-54.0); HEMOGLOBIN 13.6 g/dL (13.5-17.5); IMMATURE GRANULOCYTES 0.3 % (0-5); MCH 28.5 pg (26.0-34.0); MCHC 31.7 g/dL (31.0-37.0); MCV 89.7 fL (80.0-100.0); MONOCYTES 7.3 % (2-11); NEUTROPHILS 64.9 % (40-80); PLATELET COUNT 204 10x3/uL (130-400); RBC 4.78 10x6/uL (4.20-6.10); RDW 13.8 % (11.5-14.5); WBC 11.5 10x3/uL (4.8-10.8)
[2020-06-07 17:02] LABS: BACTERIA FEW /hpf (NEGATIVE); BILIRUBIN NEGATIVE (NEGATIVE); EPITHELIAL CELLS NSEEN /hpf (0-5); KETONE NEGATIVE (NEGATIVE); NITRITE NEGATIVE (NEGATIVE); RED CELLS - URINE RARE /hpf (0-5); UROBILINOGEN NORMAL (NORMAL); WHITE CELLS - URINE NSEEN /hpf (NEGATIVE)
[2020-06-07 17:03] LABS: APTT 32.8 SECONDS (22.8-39.4); INR 0.99 (0.85-1.17); PROTIME 13.1 SECONDS (11.6-15.0)
[2020-06-07 17:08] LABS: UDS - AMPHET NEGATIVE QUAL (NEGATIVE); UDS - BARB NEGATIVE QUAL (NEGATIVE); UDS - BENZO NEGATIVE QUAL (NEGATIVE); UDS - COCAINE NEGATIVE QUAL (NEGATIVE); UDS - OPIATE NEGATIVE QUAL (NEGATIVE); UDS - PCP NEGATIVE QUAL (NEGATIVE); UDS - THC NEGATIVE QUAL (NEGATIVE)
[2020-06-07 17:17] LABS: CALC OSMOLALITY 278 mosm/kg (275-300); CALCIUM 8.6 mg/dL (8.5-10.1); CARBON DIOXIDE 27.4 mmol/L (21.0-32.0); CHLORIDE - SERUM 104 mmol/L (98-107); CREATININE - SERUM 2.2 mg/dL (0.6-1.3); GLUCOSE 78 mg/dL (74-106); POTASSIUM - SERUM 4.6 mmol/L (3.5-5.1); SODIUM 137 mmol/L (136-145); UREA NITROGEN 29 mg/dL (7-18); eGFR NON AFRICAN AMERICAN 32 mL/min (90-120)
[2020-06-07 17:34] LABS: ALKALINE PHOSPHATASE 75 U/L (30-120); ALT (SGPT) 15 U/L (10-68); BILIRUBIN - TOTAL 0.33 mg/dL (0.2-1.3); CKMB 3.6 U/L (0.0-3.6); CREATINE KINASE 149 UL (21-232); MAGNESIUM - SERUM 2.2 mg/dL (1.8-2.4); PROTEIN - SERUM 6.7 g/dL (6.4-8.2); THYROID STIMULATING HORMONE 1.28 uIU/mL (0.36-3.74); TROPONIN-I 0.041 ng/mL (0.000-0.060)
[2020-06-07 20:14] VITALS: BP 151/66
[2020-06-07 20:47] VITALS: BP 132/74
--- NOTE | 2020-06-07 21:10 | NUR ---
RECEIVED PT TO ROOM FROM ER VIA WHEELCHAIR. PT ALERT & ORIENTED. HARD OF HEARING. AMBULATED FROM WHEELCHAIR TO BATHROOM TO BED WITH NO DIFFICULTY. BOLUS INFUSION COMPLETE. TELEMETRY ON RUNNING NORMAL SINUS RHYTHM. BROUGHT PT SPRITE. NO NEEDS. WILL MONITOR.
[2020-06-07 21:15] VITALS: BP 138/63
[2020-06-07] MEDS ORDERED: PLAVIX75 MG PO (21:28)
[2020-06-07] MEDS ORDERED: LISINOPRIL10 MG PO (21:29)
[2020-06-07 21:52] LABS: CKMB 1.7 U/L (0.0-3.6); CREATINE KINASE 71 UL (21-232); TROPONIN-I 0.045 ng/mL (0.000-0.060)
[2020-06-08 00:05] VITALS: BP 124/65
[2020-06-08 04:30] VITALS: BP 132/67
[2020-06-08 04:31] VITALS: BMI 22.3
[2020-06-08 05:16] LABS: BASOPHILS 0.2 % (0-2); EOSINOPHILS 4.1 % (0-7); HEMATOCRIT 41.2 % (42.0-54.0); HEMOGLOBIN 12.7 g/dL (13.5-17.5); IMMATURE GRANULOCYTES 0.2 % (0-5); LYMPHOCYTES 30.3 % (15-50); MCH 27.8 pg (26.0-34.0); MCHC 30.8 g/dL (31.0-37.0); MCV 90.2 fL (80.0-100.0); MEAN PLATELET VOLUME 12.2 fL (7.4-10.4); MONOCYTES 7.1 % (2-11); NEUTROPHILS 58.1 % (40-80); PLATELET COUNT 200 10x3/uL (130-400); RBC 4.57 10x6/uL (4.20-6.10); WBC 11.8 10x3/uL (4.8-10.8)
[2020-06-08 05:47] LABS: ALBUMIN 2.7 g/dL (3.4-5.0); ALKALINE PHOSPHATASE 70 U/L (30-120); CALC OSMOLALITY 282 mosm/kg (275-300); CALCIUM 7.9 mg/dL (8.5-10.1); CARBON DIOXIDE 29.2 mmol/L (21.0-32.0); CHLORIDE - SERUM 107 mmol/L (98-107); CKMB 2.6 U/L (0.0-3.6); CREATINE KINASE 100 UL (21-232); GLUCOSE 77 mg/dL (74-106); POTASSIUM - SERUM 4.3 mmol/L (3.5-5.1); PROTEIN - SERUM 6.1 g/dL (6.4-8.2); SODIUM 139 mmol/L (136-145); TROPONIN-I 0.035 ng/mL (0.000-0.060); UREA NITROGEN 29 mg/dL (7-18); eGFR NON AFRICAN AMERICAN 36 mL/min (90-120)
[2020-06-08 05:57] LABS: ALT (SGPT) 11 U/L (10-68)
--- NOTE | 2020-06-08 08:21 | NUR ---
AWAKE AND ALERT. ORIENTED X3.NO C/O AT THIS TIME. LUNGS ARE CLEAR BILATERALLY, NO COUGH NOTED. SKIN IS INTACT WITHOUT REDNESS. SL TO LEFT FOREARM IS PATENT WITHOUT REDNESS AT INSERTION SITE. VOIDED CLEAR YELLOW URINE IN URINAL. DENIES NEEDS.
[2020-06-08 08:44] VITALS: BP 130/75
--- NOTE | 2020-06-08 09:53 | NUR ---
Rehab Note- Acute Inpatient Rehab prescreen order received. The patient has [employer] insurance and will require a PreAuth prior to an acute rehab stay. He needs a PT & OT Evals for PreAuth process. Will follow at this time. Thank you for this referral! Wanda Lindsay RN Clinical Liaison, [facility] Rehab
--- NOTE | 2020-06-08 10:00 | NUR ---
RESTING QUIETLY IN BED. CONCERNED ABOUT HOME MEDS. WILL MONITOR.
[2020-06-08 11:33] LABS: CKMB 3.2 U/L (0.0-3.6); CREATINE KINASE 88 UL (21-232); TROPONIN-I 0.044 ng/mL (0.000-0.060)
--- NOTE | 2020-06-08 13:21 | NUR ---
SITTING UP IN BED EATING LUNCH. DENIES NEEDS.
[2020-06-08 13:30] VITALS: BP 130/68
[2020-06-08 17:37] VITALS: BP 127/65
--- NOTE | 2020-06-08 18:44 | NUR ---
ATE OVER HALF OF SUPPER TRAY. NO CHANGES NOTED. DENIES NEEDS.
[2020-06-08 20:00] VITALS: BP 149/74
[2020-06-09] VITALS: BP 132/65
[2020-06-09 04:00] VITALS: BP 126/56
[2020-06-09 07:02] LABS: CALCIUM 8.2 mg/dL (8.5-10.1); CARBON DIOXIDE 25.3 mmol/L (21.0-32.0); MAGNESIUM - SERUM 2.1 mg/dL (1.8-2.4); POTASSIUM - SERUM 4.3 mmol/L (3.5-5.1)
[2020-06-09 07:06] LABS: BASOPHILS 0.2 % (0-2); EOSINOPHILS 2.7 % (0-7); HEMATOCRIT 41.9 % (42.0-54.0); HEMOGLOBIN 13.3 g/dL (13.5-17.5); IMMATURE GRANULOCYTES 0.2 % (0-5); LYMPHOCYTES 15.3 % (15-50); MCH 28.2 pg (26.0-34.0); MCHC 31.7 g/dL (31.0-37.0); MONOCYTES 9.5 % (2-11); NEUTROPHILS 72.1 % (40-80); PLATELET COUNT 224 10x3/uL (130-400); RBC 4.71 10x6/uL (4.20-6.10); RDW 13.6 % (11.5-14.5); WBC 11.4 10x3/uL (4.8-10.8)
--- NOTE | 2020-06-09 09:26 | NUR ---
OT NOTE: (DOS 06/08/20) PT COMPLETED SELF FEEDING WITH SETUP. PT COMPLETED UE AROM WITH FUNCTIONAL TASKS. PT COMPLETED BED MOB WITH SBA. [phone] THANK YOU,NAY LEON
--- NOTE | 2020-06-09 09:32 | NUR ---
HE IS SETTING BACK IN THE BED, LIKE HE CAN NOT HOLD HIMSELF. HE IS VERY HARD OF HEARING. HE ATE BREAKFAST, BUT DID NOT DRINK HIS COFFEE. HE HAS BEEN NPO SINCE BREAKFAST.
[2020-06-09 10:04] VITALS: BP 136/69
--- NOTE | 2020-06-09 14:12 | NUR ---
OT NOTE: IN ROOM AMBULATION WITH USE OF WALKER AND CGA; TOILET TRANSFER WITH CGA; FEEDING WITH SET UP; BED MOB WITH SBA; SIMPLE GROOMING AND DRESSING WITH MIN/SET UP. PT WITH NO COMPLAINTS. CAR THOMPSON, OTR/L [phone]
--- NOTE | 2020-06-09 14:38 | NUR ---
OT NOTE: PT COMPLETED SUPINE TO SIT WITH SPV. PT COMPLETED SIT TO STAND WITH SPV. PT COMPLETED EOB SITTING WITH SPV. PT COMPLETED HAIR GROOMING WITH SETUP. PT COMPLETED FACE HYGIENE WITH SETUP AT EOB. [phone] THANK YOU, NAY LEON
--- NOTE | 2020-06-09 16:26 | NUR ---
Rehab Note- Acute Inpatient Rehab prescreen order received. The patient has [employer] insurance and will require a PreAuth. PT note stated ambulated 260ft and recommends home with services. The patient will be denied for inpatient acute rehab at this time. Thank you for this referral! Wanda Lindsay RN Clinical Liaison, [facility] Rehab
--- NOTE | 2020-06-09 18:19 | NUR ---
I SPOKE WITH DR. NICHOLS REGARDING THE CTA RESULTS. HE WILL SEE THE PATIENT MONDAY. WILL CALL KENDY WEST AND LET THEM KNOW ABOUT THE RESULTS.
--- NOTE | 2020-06-09 18:29 | NUR ---
SPOKE WITH MEENA WEST REGARDING DR. NICHOLS'S INFORMATION. NEW ORDER RECEIVED.
[2020-06-09 18:33] VITALS: BP 148/77
[2020-06-09 20:00] VITALS: BP 127/76
[2020-06-10] VITALS: BP 130/72
[2020-06-10 04:00] VITALS: BP 133/71
[2020-06-10 06:13] LABS: BASOPHILS 0.2 % (0-2); EOSINOPHILS 3.6 % (0-7); HEMATOCRIT 40.2 % (42.0-54.0); HEMOGLOBIN 12.6 g/dL (13.5-17.5); IMMATURE GRANULOCYTES 0.3 % (0-5); LYMPHOCYTES 21.1 % (15-50); MCH 27.6 pg (26.0-34.0); MCHC 31.3 g/dL (31.0-37.0); MCV 88.2 fL (80.0-100.0); MEAN PLATELET VOLUME 11.7 fL (7.4-10.4); MONOCYTES 6.6 % (2-11); NEUTROPHILS 68.2 % (40-80); PLATELET COUNT 234 10x3/uL (130-400); RBC 4.56 10x6/uL (4.20-6.10); RDW 13.8 % (11.5-14.5)
[2020-06-10 07:24] LABS: CARBON DIOXIDE 25.7 mmol/L (21.0-32.0); CREATININE - SERUM 1.7 mg/dL (0.6-1.3); LDL-HDL RATIO 3.6 ratio (1.5-3.5); POTASSIUM - SERUM 4.7 mmol/L (3.5-5.1)
--- NOTE | 2020-06-10 07:26 | NUR ---
ALERT AND ORENTED ABLE TO VOICE NEEDS AND WANTS. IV IN LEFT AC PATEN. WATER IN REACH WILLIAMSON LIGHT IN REACH. NO NEEDS AT THIS TIME
--- NOTE | 2020-06-10 08:27 | NUR ---
HE IS ALERT, TALKING. HE HAS ATE BREAKFAST. DENIES ANY PAIN. THE CALL LIGHT IS ON AND THE BED ALARM IS ON.
[2020-06-10 09:55] VITALS: BP 138/74
[2020-06-10 12:45] VITALS: Ht 180.3 cm; Wt 72.6 kg
[2020-06-10 13:46] VITALS: BP 115/63
[2020-06-10 18:10] VITALS: BP 123/68
[2020-06-10 20:00] VITALS: BP 126/66
[2020-06-11] VITALS: BP 146/72
[2020-06-11 04:00] VITALS: BP 107/44
[2020-06-11 06:56] LABS: BASOPHILS 0.2 % (0-2); EOSINOPHILS 3.1 % (0-7); HEMATOCRIT 43.3 % (42.0-54.0); HEMOGLOBIN 13.5 g/dL (13.5-17.5); IMMATURE GRANULOCYTES 0.2 % (0-5); MCH 27.7 pg (26.0-34.0); MCHC 31.2 g/dL (31.0-37.0); MCV 88.7 fL (80.0-100.0); MONOCYTES 6.7 % (2-11); NEUTROPHILS 65.8 % (40-80); RBC 4.88 10x6/uL (4.20-6.10); RDW 13.8 % (11.5-14.5); WBC 13.3 10x3/uL (4.8-10.8)
[2020-06-11 06:58] LABS: PLATELET COUNT 281 10x3/uL (130-400)
[2020-06-11 07:03] LABS: ANION GAP 13.5 mmol/L (8-16); CALCIUM 8.7 mg/dL (8.5-10.1); CARBON DIOXIDE 26.2 mmol/L (21.0-32.0); MAGNESIUM - SERUM 2.2 mg/dL (1.8-2.4); POTASSIUM - SERUM 4.7 mmol/L (3.5-5.1)
[2020-06-11 07:04] LABS: CREATININE - SERUM 2.2 mg/dL (0.6-1.3)
--- NOTE | 2020-06-11 08:17 | NUR ---
AWAKE AND ALERT. ORIENTED X3. C/O PAIN TO RIGHT ELBOW AT THIS TIME. WILL MONITOR. NO SWELLING OR ABRASION NOTED. LUNGS ARE CLEAR BILATERALLY , NO COUGH NOTED. SKIN IS INTACT WITHOUT REDNESS. SL TO LEFT FOREARM IS PATENT WITHOUT REDNESS AT INSERTION SITE. DENIES NEEDS. NPO FOR TEST THIS AM.
[2020-06-11 09:12] VITALS: BP 127/70
--- NOTE | 2020-06-11 10:00 | NUR ---
RESTING QUIETLY IN BED. DENIES NEEDS.
[2020-06-11 13:02] VITALS: BP 116/59
--- NOTE | 2020-06-11 13:15 | NUR ---
SPLKE WITH DAUGHTER ON PHONE RE PROCEDURE AND TRANSFER TO 2117. ALL QUESTIONS ANSWERED. PATIENT VERBALIZED UNDERSTANDING OF PROCEDURE WELL. OFF UNIT VIA BED FOR RICARDO AND HEART CATH.
--- NOTE | 2020-06-11 14:40 | NUR ---
TRANSFER FROM ELECTRONICS WARFARE TECHNICIAN BY BED. VS WNL. RIGHT GROIN STABLE WITHOUT BLEEDING OR HEMATOMA NOTED. WILL MONITOR.
[2020-06-11 16:04] LABS: CREATININE - URINE 74.2 mg/dL (30-125); PRO/CRE RATIO URINE 1.6 mg/g
[2020-06-11 16:18] VITALS: BP 134/80
--- NOTE | 2020-06-11 16:23 | NUR ---
BED REST UP. GROIN STABLE.
--- NOTE | 2020-06-11 19:30 | NUR ---
RECEIVED BEDSIDE REPORT. ROUNDING COMPLETE. PATIENT IS AAO X 3, RESTING COMFORTABLY IN BED. PATIENT IS EXTREMELY [place]. RESPIRATIONS ARE EVEN AND UNLABORED. NO S/S OF DISTRESS. NO C/O PAIN. CALL LIGHT WITHIN REACH NEEDS MET. WILL CPOC.
[2020-06-11 20:56] VITALS: BP 154/82
[2020-06-12] VITALS: BP 147/58
[2020-06-12 04:00] VITALS: BP 142/77
[2020-06-12 06:34] LABS: BASOPHILS 0.3 % (0-2); EOSINOPHILS 2.6 % (0-7); HEMATOCRIT 42.3 % (42.0-54.0); HEMOGLOBIN 13.5 g/dL (13.5-17.5); IMMATURE GRANULOCYTES 0.3 % (0-5); LYMPHOCYTES 18.3 % (15-50); MCH 28.2 pg (26.0-34.0); MCHC 31.9 g/dL (31.0-37.0); MCV 88.5 fL (80.0-100.0); MEAN PLATELET VOLUME 11.8 fL (7.4-10.4); MONOCYTES 6.7 % (2-11); NEUTROPHILS 71.8 % (40-80); PLATELET COUNT 265 10x3/uL (130-400); RBC 4.78 10x6/uL (4.20-6.10); RDW 13.7 % (11.5-14.5); WBC 11.6 10x3/uL (4.8-10.8)
[2020-06-12 07:12] LABS: ANION GAP 14.5 mmol/L (8-16); CALCIUM 8.7 mg/dL (8.5-10.1); CARBON DIOXIDE 27.1 mmol/L (21.0-32.0); CREATININE - SERUM 2.1 mg/dL (0.6-1.3); MAGNESIUM - SERUM 2.3 mg/dL (1.8-2.4); URIC ACID 5.6 mg/dL (2.6-7.2)
[2020-06-12 07:15] LABS: POTASSIUM - SERUM 5.6 mmol/L (3.5-5.1)
[2020-06-12 08:00] VITALS: BP 141/71
--- NOTE | 2020-06-12 08:09 | TEE ---
PATIENT:ALISA HOPSON MEDICAL RECORD: [id number] LOCATION:D.M2 D.211 AGE OF PATIENT: 65 ADMISSION DATE: 06/07/20 SEX: M REFERRING PHYSICIAN: INTERPRETING PHYSICIAN: PRASAD LITTLE MD TRANSESOPHAGEAL ECHOCARDIOGRAM Date: 06/08/20 RICARDO CHARGE INDICATIONS: PREMEDICATIONS: PATIENT'S RESPONSE PROCEDURE DOPPLER MEASUREMENTS: LVIT LA PA 85 RA LVOT 65 RVOT 63 Asc. Ao 106 AV Gradient Peak 4.5 AV Mean 2.4 AV Area 1.2 MV Gradient Peak 5.9 MV Mean 2.1 MV Area INTERPRETATION: Doppler: 2-D: COLOR FLOW DOPPLER NORMAL SALINE STUDY: MISCELLANOUS: DIAGNOSIS: PLAN: Tetryl Dissolver Operator:Alka Lockhart Picker Operator: John MARIE COMMENTS: DATE OF SERVICE: 06/11/2020 TRANSESOPHAGEAL NOTE DESCRIPTION OF PROCEDURE: After general sedation via TIVA via anesthesia, transesophageal Omniplane probe was placed in the distal esophagus and proximal stomach without difficulty. FINDINGS: As follows; LVH is present. LV internal dimension is normal. Wall TRANSESOPHAGEAL ECHOCARDIOGRAM REPORT [id number] ALISA HOPSON motion is normal. EF is greater than or equal to 55%. Aortic valve is well visualized, tricuspid with good valve excursion and trivial AI. Left atrium is normal dimensions. Left atrial appendage is well visualized and has normal contractility. Mitral valve appears normal with no evidence of prolapse. Trivial MR. Right-sided chambers were grossly normal. Trivial TR. At the end of procedure, the transesophageal Omniplane probe was turned posteriorly and this showed minimal atherosclerotic debris in the descending aorta. During the procedure, multiple Doppler and color flow passes were made to the atrial septal and anteroseptal areas with no evidence of ASD or VSD. TRANSINT:[id number] Voice Confirmation ID: [id number] DOCUMENT ID: [id number] at 0809 CC: [id number] DICTATION DATE: 06/11/20 1407 EVENT SALES REPRESENTATIVE: 06/11/20 1602 ADM IN [id number] [place] [address]
--- NOTE | 2020-06-12 08:09 | OP ---
PATIENT NAME: ALISA HOPSON MEDICAL RECORD: [id number] :55 LOCATION:D.M2 D.2118 ADMISSION DATE:06/07/20 SURGEON: PRASAD LITTLE MD DATE OF OPERATION: 06/11/2020 PROCEDURE: Left heart catheterization, selective coronary angiography, right femoral artery approach. CATHETERS: A 5-Swedish sheath, 5/4 left and right Ambrocio, 5/4 pig. The procedure was well tolerated. The patient returned to hwang. Sheath removed. ExoSeal device placed. FINDINGS: Left ventriculography in 30-degree CASPER view, normal wall motion, normal systolic function. CORONARY ANATOMY: LEFT MAIN: Left main is short vessel, free of disease. LAD: Fills for a short period of time, then is seen via competitive flow from the LAD. CIRCUMFLEX: Circumflex has a previously placed stent that is widely patent. This is a left dominant system. RIGHT CORONARY ARTERY: Rudimentary vessel, free of disease. Saphenous vein graft to circumflex is a totally occluded, but again stenting to the [place] circumflex is widely patent. JOHN to LAD is widely patent without evidence of post-anastomotic stenosis. IMPRESSION: Patent left internal mammary artery to left anterior descending, patent stent to circumflex. Left ventricular function remains normal. TRANSINT:[id number] Voice Confirmation ID: [id number] DOCUMENT ID: [id number] PRASAD LITTLE MD at 0809 CC: [id number] DICTATION DATE: 06/11/20 1408 FACING CUTTING MACHINE OPERATOR: 06/11/20 1656 ADM IN [id number] [place] [address]
[2020-06-12 12:00] VITALS: BP 152/87
[2020-06-12 16:00] VITALS: BP 142/92
--- NOTE | 2020-06-12 16:41 | NUR ---
OT NOTE: PT COMPLETED SUPINE TO SIT WITH CGA. PT COMPLETED EOB SITTING WITH SBA. PT COMPLETED FACE/HAND HYGIENE WITH SETUP. [phone] THANK YOU,NAY LEON
[2020-06-12 20:00] VITALS: BP 132/75
--- NOTE | 2020-06-12 20:00 | NUR ---
INITIAL ROUNDS AND ASSESSMENT COMPLETED. PT RESTING IN BED WITH NO DISTRESS. SR PER TELEMETRY. NONLABORED RESPIRATIONS ON ROOM AIR. SALINE LOCK TO LEFT WRIST. SR UP X 2, CALL LIGHT IN REACH. CPOC.
--- NOTE | 2020-06-12 21:47 | NUR ---
PROVIDED FAN FOR ROOM TO HELP WITH COMFORT LEVEL. BEDTIME MEDS GIVEN. ASSISTED PT TO SIT IN BEDSIDE CHAIR. CALL LIGHT IN REACH.
--- NOTE | 2020-06-12 22:02 | NUR ---
SCHEDULED PROTONIX IV GIVEN. PT RESTING. VOICING NO NEEDS. CPOC.
[2020-06-13 04:00] VITALS: BP 133/68
[2020-06-13 06:50] LABS: BASOPHILS 0.2 % (0-2); EOSINOPHILS 2.7 % (0-7); HEMATOCRIT 45.1 % (42.0-54.0); HEMOGLOBIN 14.3 g/dL (13.5-17.5); IMMATURE GRANULOCYTES 0.3 % (0-5); LYMPHOCYTES 15.6 % (15-50); MCHC 31.7 g/dL (31.0-37.0); MCV 88.4 fL (80.0-100.0); MEAN PLATELET VOLUME 11.8 fL (7.4-10.4); MONOCYTES 7.9 % (2-11); NEUTROPHILS 73.3 % (40-80); PLATELET COUNT 313 10x3/uL (130-400); RDW 13.5 % (11.5-14.5); WBC 12.9 10x3/uL (4.8-10.8)
[2020-06-13 07:24] LABS: ANION GAP 14.2 mmol/L (8-16); CALCIUM 9.2 mg/dL (8.5-10.1); CARBON DIOXIDE 27.1 mmol/L (21.0-32.0); CREATININE - SERUM 2.1 mg/dL (0.6-1.3); MAGNESIUM - SERUM 2.2 mg/dL (1.8-2.4)
[2020-06-13 07:26] LABS: POTASSIUM - SERUM 4.3 mmol/L (3.5-5.1)
[2020-06-13 09:02] VITALS: BP 81/60
--- NOTE | 2020-06-13 09:02 | NUR ---
NOTIFIED BY TOP POLISHER OF LOW BP, WHEN I WENT TO GIVE AM MEDS, DID MANUAL BP AND IT WAS 123/65. PT A/O X4, RESP EVEN AND NONLABORED ON RA.LT WRIST IV SL. MONITOR SHOWING SR WITH RATE OF 60. RT GROIN DRESSING CDI NO S/S OF BLEEDING OR HEMATOMA. PT DENIES ANY NEEDS AT THIS TIME. CALL LIGHT IN REACH, NAD NOTED, WILL CONTINUE TO MONITOR.
[2020-06-13 09:10] VITALS: BP 123/65
[2020-06-13 09:38] VITALS: BP 136/75
[2020-06-13 18:06] VITALS: BP 136/64
[2020-06-13 20:00] VITALS: BP 151/75
--- NOTE | 2020-06-13 20:00 | NUR ---
INITIAL ROUNDS AND ASSESSMENT COMPLETED. PT RESTING IN BED. NO DISTRESS. CPOC.
[2020-06-14 00:01] VITALS: BP 133/70
[2020-06-14 04:00] VITALS: BP 135/72
[2020-06-14 06:04] LABS: BASOPHILS 0.3 % (0-2); EOSINOPHILS 3.6 % (0-7); HEMATOCRIT 41.5 % (42.0-54.0); HEMOGLOBIN 13.3 g/dL (13.5-17.5); IMMATURE GRANULOCYTES 0.4 % (0-5); LYMPHOCYTES 22.3 % (15-50); MCH 28.1 pg (26.0-34.0); MCV 87.6 fL (80.0-100.0); MEAN PLATELET VOLUME 11.5 fL (7.4-10.4); MONOCYTES 8.2 % (2-11); NEUTROPHILS 65.2 % (40-80); PLATELET COUNT 297 10x3/uL (130-400); RBC 4.74 10x6/uL (4.20-6.10); RDW 13.4 % (11.5-14.5); WBC 11.1 10x3/uL (4.8-10.8)
[2020-06-14 06:20] LABS: ANION GAP 9.3 mmol/L (8-16); CALCIUM 8.8 mg/dL (8.5-10.1); CARBON DIOXIDE 28.5 mmol/L (21.0-32.0); POTASSIUM - SERUM 4.8 mmol/L (3.5-5.1)
[2020-06-14 08:00] VITALS: BP 149/78
--- NOTE | 2020-06-14 09:15 | NUR ---
AM MEDS GIVEN AT THIS TIME. PT RESTING COMFORTABLY IN BED, DENIES ANY NEEDS. PT A/O X4, RESP EVEN AND UNLABORED ON RA. LT WRIST IV SL. CALL LIGHT IN REACH, NAD NOTED,W ILL CONTINUE PLAN OF CARE.
[2020-06-14 12:00] VITALS: BP 128/68
--- NOTE | 2020-06-14 13:31 | NUR ---
IN TO SPEAK WITH PT RE TOBACCO QUITLINE. PT VERY [place] AND DID NOT COMPREHEND.
[2020-06-14] MEDS ORDERED: LIPITOR20 MG PO (13:53)
[2020-06-14] MEDS ORDERED: NICODERM CQ1 EAC1 TOPICAL (14:07)
--- NOTE | 2020-06-14 14:29 | MORECARE ---
CASE MANAGEMENT DISCHARGE SUMMARY PATIENT: ALISA HPOSON UNIT: [id number] ADM DATE: 06/07/20 AGE: 65 : 55 SEX: M ROOM/BED: D.2118 AUTHOR: ANA GARRISON PHYSICIAN: REFERRING PHYSICIAN: MARIA DE JESUS TRINIDAD MD DATE OF SERVICE: 06/14/20 Discharge Plan Patient Name: ALISA HOPSON [facility] [facility] 1955 Planned Disposition: Home with Home Health Anticipated Discharge Date: Discharge Date: Expected LOS: Initial Reviewer: [email or web address] Initial Review Date: 06/07/2020 Generated: 06/14/20 3:29 pm External Providers External Provider: [facility] Next Contact Date: Service Request Date: Service Type: Resolution: Reviewer: Comments: Patient Name: ALISA HOPSON Page [phone] at 1429 All edits/amendments must be made on the electronic document DICTATION DATE: 06/14/20 142 FRANCHISE MANAGER: CARI 06/14/20 1429 RPT#: [id number] CA DATE: STATUS: ADM IN [facility] [address] [place] [address] END OF REPORT
--- NOTE | 2020-06-14 14:37 | MORECARE ---
CASE MANAGEMENT DISCHARGE SUMMARY PATIENT: ALISA HOPSON UNIT: [id number] ADM DATE: 06/07/20 AGE: 65 : 55 SEX: M ROOM/BED: D.8325 AUTHOR: ANA GARRISON PHYSICIAN: REFERRING PHYSICIAN: MARIA DE JESUS TRINIDAD MD DATE OF SERVICE: 06/14/20 Discharge Plan Patient Name: ALISA HOPSON Facility: [facility]:[place] : 1955 Planned Disposition: Home with Home Health Anticipated Discharge Date: Discharge Date: Expected LOS: Initial Reviewer: [email or web address] Initial Review Date: 06/07/2020 Generated: 06/14/20 3:36 pm Comments DCP- Discharge Planning Updated by [email or web address]: Anahy Shah on 06/14/20 1:[address] Patient Name: ALISA HOPSON Admission Status: ER Accout number: [id number] Admission Date: 06-07-2020 : 1955 Admission Diagnosis:SYNCOPE AND COLLAPSE Attending: MARIA DE JESUS GRAVES Current LOS: 7 Anticipated DC Date: Planned Disposition: Home with Home Health Primary Insurance: [employer] CHOICE PPO M[facility] Discharge Planning Comments: CM met with patient to complete initial dc planning assessment. CM educated patient on the CM role and verbal consent given by patient to complete assessment. CM verified patient's address, phone number, and emergency contact phone numbers. Patient lives with his dtr [facility] [phone] and her family. Prior to admission pt was independent with the use of a rollator. At discharge patient plans to return home and feels this is a safe discharge. CM discussed availability of home health, rehab services, and medical equipment. Pt is in agreement for [facility]. DELVIN signed. Transportation provider at discharge will be Breanne . CM will continue to follow and will assist as needed with dc plans/needs. DC IMM delivered, explained, signed by the patient, and placed in chart. Signed form also left with the patient. Clothes Model: Anahy Shah DCPIA - Discharge Planning Initial Assessment Updated by [email or web address]: Anahy Shah on 06/14/20 2:30 pm * Is the patient Alert and Oriented? Yes * How many steps to enter\exit or inside your home? 0/0 * PCP ELENA VEGA * Pharmacy [address] * Preadmission Environment Home with Family * ADLs Partial Dependent * Partial ADLs (Assistance needed) Ambulation * Equipment Rolling Walker * Other Equipment SHOWER BENCH * List name and contact numbers for known caregivers / representatives who currently or will assist patient after discharge: BREANNE DTR [phone] * Verbal permission to speak to the caregivers and representatives has been obtained from the patient. Yes * Community resources currently utilized None * Additional services required to return to the preadmission environment? Yes * Can the patient safely return to the preadmission environment? Yes * Has this patient been hospitalized within the prior 30 days at any hospital? No Coverage Notice Reviewer: [email or web address] Dewayne Shah Notice Issued Date-Time: 06/14/2020 13:30 Notice Type: Patient Choice Letter Notice Delivered To: Patient Relationship to Patient: Mallet Cutter Name: Delivery Method: HAND - Hand Delivered Lorie Days: Prior Verbal Notification: Recipient Understood Notice: Yes Recipient Signature: Yes Med Rec Note Co-signed by Attending: Coverage Notice Comment: chi hh Reviewer: [email or web address] Dewayne Shah Notice Issued Date-Time: 06/14/2020 13:30 Notice Type: IM Discharge Notice Notice Delivered To: Patient Relationship to Patient: Mallet Cutter Name: Delivery Method: HAND - Hand Delivered Lorie Days: Prior Verbal Notification: Recipient Understood Notice: Yes Recipient Signature: Yes Med Rec Note Co-signed by Attending: Coverage Notice Comment: dcimm delivered Last DP export: 06/14/20 1:29 p Patient Name: ALISA HOPSON Page [phone] at 1437 All edits/amendments must be made on the electronic document DICTATION DATE: 06/14/20 1436 TRACK INSPECTING SUPERVISOR: CARI 06/14/20 1436 RPT#: [id number] DC DATE: STATUS: ADM IN [facility] [address] [place] [address] END OF REPORT
--- NOTE | 2020-06-14 14:44 | NUR ---
PROVIDED VERBAL AND WRITTEN DISCHARGE TEACHING TO PT, WHO VERBALIZED UNDERSTANDING REGARDING TEACHING. D/C LT WRIST IV WITH CATHETER TIP INTACT. HEART MONITOR REMOVED AND TAKEN TO EXTRACTOR MACHINE OPERATOR. PT REFUSED WHEELCHAIR, LEFT UNIT VIA AMBULATORY USING WALKER, WITH ALL BELONGIGNS. ACCOMPANIED BY LAUNCH LEADER AND FAMILY, NAD NOTED.
--- NOTE | 2020-06-15 07:58 | MORECARE ---
CASE MANAGEMENT DISCHARGE SUMMARY PATIENT: ALISA HOPSON UNIT: [id number] ADM DATE: 06/07/20 AGE: 65 : 55 SEX: M ROOM/BED: D.8650 AUTHOR: ANA GARRISON PHYSICIAN: REFERRING PHYSICIAN: MARIA DE JESUS TRINIDAD MD DATE OF SERVICE: 06/15/20 Discharge Plan Patient Name: ALISA HOPSON Facility: [facility]:[place] : 1955 Planned Disposition: Home with Home Health Anticipated Discharge Date: Discharge Date: 06/14/2020 Expected LOS: Initial Reviewer: [email or web address] Initial Review Date: 06/07/2020 Generated: 06/15/20 8:57 am Comments DCP- Discharge Planning Updated by [id number]: Anahy Shah on 06/14/20 1:[address] Patient Name: ALISA HOPSON Admission Status: ER Accout number: [id number] Admission Date: 06-07-2020 : 1955 Admission Diagnosis:SYNCOPE AND COLLAPSE Attending: MARIA DE JESUS GRAVES Current LOS: 7 Anticipated DC Date: Planned Disposition: Home with Home Health Primary Insurance: [employer] CHOICE [facility] Discharge Planning Comments: CM met with patient to complete initial dc planning assessment. CM educated patient on the CM role and verbal consent given by patient to complete assessment. CM verified patient's address, phone number, and emergency contact phone numbers. Patient lives with his dtr [facility] [phone] and her family. Prior to admission pt was independent with the use of a rollator. At discharge patient plans to return home and feels this is a safe discharge. CM discussed availability of home health, rehab services, and medical equipment. Pt is in agreement for [facility]. DELVIN signed. Transportation provider at discharge will be Breanne . CM will continue to follow and will assist as needed with dc plans/needs. DC IMM delivered, explained, signed by the patient, and placed in chart. Signed form also left with the patient. Interventional Radiology Rn: Anahy Shah DCPIA - Discharge Planning Initial Assessment Updated by [id number]: Anahy Shah on 06/14/20 2:30 pm * Is the patient Alert and Oriented? Yes * How many steps to enter\exit or inside your home? 0/0 * PCP ELENA VEGA * Pharmacy [address] * Preadmission Environment Home with Family * ADLs Partial Dependent * Partial ADLs (Assistance needed) Ambulation * Equipment Rolling Walker * Other Equipment SHOWER BENCH * List name and contact numbers for known caregivers / representatives who currently or will assist patient after discharge: BREANNE DTR [phone] * Verbal permission to speak to the caregivers and representatives has been obtained from the patient. Yes * Community resources currently utilized None * Additional services required to return to the preadmission environment? Yes * Can the patient safely return to the preadmission environment? Yes * Has this patient been hospitalized within the prior 30 days at any hospital? No Coverage Notice Reviewer: [email or web address] Dewayne Shah Notice Issued Date-Time: 06/14/2020 13:30 Notice Type: Patient Choice Letter Notice Delivered To: Patient Relationship to Patient: Motorized Squad Commanding Officer Name: Delivery Method: HAND - Hand Delivered Lorie Days: Prior Verbal Notification: Recipient Understood Notice: Yes Recipient Signature: Yes Med Rec Note Co-signed by Attending: Coverage Notice Comment: chi hh Reviewer: [email or web address] Dewayne Shah Notice Issued Date-Time: 06/14/2020 13:30 Notice Type: IM Discharge Notice Notice Delivered To: Patient Relationship to Patient: Motorized Squad Commanding Officer Name: Delivery Method: HAND - Hand Delivered Lorie Days: Prior Verbal Notification: Recipient Understood Notice: Yes Recipient Signature: Yes Med Rec Note Co-signed by Attending: Coverage Notice Comment: dcimm delivered Last DP export: 06/14/20 1:37 p Patient Name: ALISA HOPSON Page [phone] at 0758 All edits/amendments must be made on the electronic document DICTATION DATE: 06/15/20 0757 MOTION PICTURE SET GRIP: CARI 06/15/20 0757 RPT#: [id number] DC DATE:06/14/20 STATUS: DIS IN [facility] [address] [place] [address] END OF REPORT
== END 2020-06-14 14:55 | disposition home health service (06) | DRG 64 ==
LOC: D.ER 16:19 → D.M2 19:45 → D.MS 19:45 → D.M2 06-11 14:18
PROVIDERS: Family Medicine; Internal Medicine Interventional Cardiology; Internal Medicine Nephrology; ADMIT Family Medicine Adult Medicine; ATTEND Family Medicine Adult Medicine
PROC: B2181ZZ Fluoroscopy of Left Internal Mammary Bypass Graft using Low Osmolar Contrast (ICD-10-PCS; 2020-06-11)
PROC: 4A023N7 Measurement of Cardiac Sampling and Pressure, Left Heart, Percutaneous Approach (ICD-10-PCS; 2020-06-11)
PROC: B2111ZZ Fluoroscopy of Multiple Coronary Arteries using Low Osmolar Contrast (ICD-10-PCS; principal; 2020-06-11 14:30)
PROC: B2151ZZ Fluoroscopy of Left Heart using Low Osmolar Contrast (ICD-10-PCS; 2020-06-11 14:30)
DX: I63.312 Cerebral infarction due to thrombosis of left middle cerebral artery (principal); I63.011 Cerebral infarction due to thrombosis of right vertebral artery; N17.9 Acute kidney failure, unspecified; I25.10 Atherosclerotic heart disease of native coronary artery without angina pectoris; K21.9 Gastro-esophageal reflux disease without esophagitis; I12.9 Hypertensive chronic kidney disease with stage 1 through stage 4 chronic kidney disease, or unspecified chronic kidney disease; N18.9 Chronic kidney disease, unspecified; E87.5 Hyperkalemia; Z86.73 Personal history of transient ischemic attack (TIA), and cerebral infarction without residual deficits